=== PATIENT | male | born 1980 | race Caucasian/White ===

== ENCOUNTER → 2019-10-02 15:58 | Outpatient (BNVA) | payer MEDICAID, SELFPAY | PROVIDERS: Family Provider Nurse Practitioner Family; PCP Registered Nurse; Visit Provider Nurse Practitioner Psychiatric/Mental Health | DX: F31.32 Bipolar disorder, current episode depressed, moderate (principal); F43.12 Post-traumatic stress disorder, chronic; F41.1 Generalized anxiety disorder; F15.21 Other stimulant dependence, in remission | CPT/HCPCS: 99214 ==

== ENCOUNTER → 2019-10-31 15:28 | Outpatient (BNVA) | payer MEDICAID, SELFPAY | PROVIDERS: Family Provider Nurse Practitioner Family; PCP Registered Nurse; Visit Provider Nurse Practitioner Psychiatric/Mental Health | DX: F31.32 Bipolar disorder, current episode depressed, moderate (principal); F43.12 Post-traumatic stress disorder, chronic; F41.1 Generalized anxiety disorder; F15.21 Other stimulant dependence, in remission | CPT/HCPCS: 99214 ==

== ENCOUNTER → 2019-11-07 11:00 | Outpatient (BNVA) | payer MEDICAID, SELFPAY | PROVIDERS: Family Provider Nurse Practitioner Family; PCP Registered Nurse; Visit Provider Registered Nurse | DX: I10 Essential (primary) hypertension (principal); F15.10 Other stimulant abuse, uncomplicated | CPT/HCPCS: 36415; 80053; 80061; 85025 ==

== ENCOUNTER → 2020-04-01 07:29 | Outpatient (BNVA) | payer MEDICAID, SELFPAY | PROVIDERS: Family Provider Nurse Practitioner Family; Visit Provider Nurse Practitioner Psychiatric/Mental Health | DX: F41.1 Generalized anxiety disorder (principal); F43.12 Post-traumatic stress disorder, chronic; F15.21 Other stimulant dependence, in remission; F33.2 Major depressive disorder, recurrent severe without psychotic features | CPT/HCPCS: 99214 ==

== ENCOUNTER → 2020-05-03 10:05 | Outpatient (BNVA) | payer MEDICAID, SELFPAY | PROVIDERS: Family Provider Nurse Practitioner Family; Visit Provider Nurse Practitioner Psychiatric/Mental Health | DX: F33.1 Major depressive disorder, recurrent, moderate (principal); F15.21 Other stimulant dependence, in remission; F41.1 Generalized anxiety disorder; F43.12 Post-traumatic stress disorder, chronic | CPT/HCPCS: 99214 ==

== ENCOUNTER → 2020-05-07 08:10 | Outpatient (BNVA) | payer MEDICAID, SELFPAY | PROVIDERS: Family Provider Nurse Practitioner Family; Visit Provider Nurse Practitioner Psychiatric/Mental Health | DX: Z79.899 Other long term (current) drug therapy (principal); R10.9 Unspecified abdominal pain | CPT/HCPCS: 80053; 80061; 81000; 83036; 85025 ==

== ENCOUNTER → 2020-05-31 08:20 | Outpatient (BNVA) | payer MEDICAID, SELFPAY | PROVIDERS: Family Provider Nurse Practitioner Family; Visit Provider Nurse Practitioner Psychiatric/Mental Health | DX: F33.1 Major depressive disorder, recurrent, moderate (principal); F15.21 Other stimulant dependence, in remission; F41.1 Generalized anxiety disorder; F43.12 Post-traumatic stress disorder, chronic | CPT/HCPCS: 99214 ==

== ENCOUNTER → 2020-06-21 08:15 | Outpatient (BNVA) | payer MEDICAID, SELFPAY | PROVIDERS: Family Provider Nurse Practitioner Family; Visit Provider Nurse Practitioner Psychiatric/Mental Health | DX: F33.1 Major depressive disorder, recurrent, moderate (principal); F15.21 Other stimulant dependence, in remission; F41.1 Generalized anxiety disorder; F43.12 Post-traumatic stress disorder, chronic | CPT/HCPCS: 99214 ==

== ENCOUNTER → 2020-07-09 10:32 | Outpatient (BNVA) | payer MEDICAID, SELFPAY | PROVIDERS: Family Provider Nurse Practitioner Family; Visit Provider Registered Nurse | DX: E78.5 Hyperlipidemia, unspecified (principal); I10 Essential (primary) hypertension | CPT/HCPCS: 80061 ==

== ENCOUNTER → 2020-08-12 08:50 | Outpatient (BNVA) | payer MEDICAID, SELFPAY | PROVIDERS: Family Provider Nurse Practitioner Family; Visit Provider Nurse Practitioner Psychiatric/Mental Health | DX: F33.1 Major depressive disorder, recurrent, moderate (principal); F15.21 Other stimulant dependence, in remission; F41.1 Generalized anxiety disorder; F43.12 Post-traumatic stress disorder, chronic | CPT/HCPCS: 99214 ==

== ENCOUNTER → 2020-09-20 08:56 | Outpatient (BNVA) | payer MEDICAID, SELFPAY | PROVIDERS: Family Provider Nurse Practitioner Family; Visit Provider Nurse Practitioner Psychiatric/Mental Health | DX: F33.1 Major depressive disorder, recurrent, moderate (principal); F15.21 Other stimulant dependence, in remission; F41.1 Generalized anxiety disorder; F43.12 Post-traumatic stress disorder, chronic | CPT/HCPCS: 99214 ==

== ENCOUNTER → 2020-10-01 09:36 | Outpatient (BNVA) | payer MEDICAID, SELFPAY | PROVIDERS: Family Provider Nurse Practitioner Family; Visit Provider Counselor Mental Health | DX: F33.1 Major depressive disorder, recurrent, moderate (principal); F41.1 Generalized anxiety disorder; F43.12 Post-traumatic stress disorder, chronic | CPT/HCPCS: 90832 ==

== ENCOUNTER → 2020-10-09 08:44 | Outpatient (BNVA) | payer MEDICAID, SELFPAY | PROVIDERS: Family Provider Nurse Practitioner Family; Visit Provider Counselor Mental Health | DX: F33.1 Major depressive disorder, recurrent, moderate (principal); F41.1 Generalized anxiety disorder; F43.12 Post-traumatic stress disorder, chronic | CPT/HCPCS: 90832 ==

== ENCOUNTER → 2020-10-18 09:28 | Outpatient (BNVA) | payer MEDICAID, SELFPAY | PROVIDERS: Family Provider Nurse Practitioner Family; Visit Provider Nurse Practitioner Psychiatric/Mental Health | DX: F33.1 Major depressive disorder, recurrent, moderate (principal); F15.21 Other stimulant dependence, in remission; F41.1 Generalized anxiety disorder; F43.12 Post-traumatic stress disorder, chronic | CPT/HCPCS: 99214 ==

== ENCOUNTER → 2020-11-01 09:04 | Outpatient (BNVA) | payer MEDICAID, SELFPAY | PROVIDERS: Family Provider Nurse Practitioner Family; Visit Provider Counselor Mental Health | DX: F33.1 Major depressive disorder, recurrent, moderate (principal); F41.1 Generalized anxiety disorder; F43.12 Post-traumatic stress disorder, chronic; F15.21 Other stimulant dependence, in remission | CPT/HCPCS: 90834 ==

== ENCOUNTER → 2020-11-06 08:45 | Outpatient (BNVA) | payer MEDICAID, SELFPAY | PROVIDERS: Family Provider Nurse Practitioner Family; Visit Provider Counselor Mental Health | DX: F33.1 Major depressive disorder, recurrent, moderate (principal); F41.1 Generalized anxiety disorder; F43.12 Post-traumatic stress disorder, chronic; F15.21 Other stimulant dependence, in remission | CPT/HCPCS: 90834 ==

== ENCOUNTER → 2020-11-13 08:20 | Outpatient (BNVA) | payer SELFPAY | PROVIDERS: Family Provider Nurse Practitioner Family; Visit Provider Counselor Mental Health | DX: F33.1 Major depressive disorder, recurrent, moderate (principal); F41.1 Generalized anxiety disorder; F43.12 Post-traumatic stress disorder, chronic; F15.21 Other stimulant dependence, in remission | CPT/HCPCS: 90834 ==

== ENCOUNTER → 2020-12-03 14:32 | Outpatient (BNVA) | payer OTHER, SELFPAY | PROVIDERS: Family Provider Nurse Practitioner Family; Visit Provider Nurse Practitioner Psychiatric/Mental Health | DX: F43.12 Post-traumatic stress disorder, chronic (principal); Z79.899 Other long term (current) drug therapy | CPT/HCPCS: 80061; 83036 ==

== ENCOUNTER → 2021-01-02 08:38 | Outpatient (BNVA) | payer MEDICAID, SELFPAY ==
[2020-12-06 13:38] VITALS: BMI 36.2
== END ==
PROVIDERS: PCP Registered Nurse; Visit Provider Nurse Practitioner Psychiatric/Mental Health
DX: F33.1 Major depressive disorder, recurrent, moderate (principal); F41.1 Generalized anxiety disorder; F43.12 Post-traumatic stress disorder, chronic; F15.21 Other stimulant dependence, in remission
CPT/HCPCS: 99214

== ENCOUNTER → 2021-01-23 08:10 | Outpatient (BNVA) | payer MEDICAID, SELFPAY ==
[2020-12-06 13:38] VITALS: BMI 36.2
== END ==
PROVIDERS: PCP Registered Nurse; Visit Provider Nurse Practitioner Psychiatric/Mental Health
DX: F33.1 Major depressive disorder, recurrent, moderate (principal); F15.21 Other stimulant dependence, in remission; F41.1 Generalized anxiety disorder; F43.12 Post-traumatic stress disorder, chronic
CPT/HCPCS: 99214

== ENCOUNTER → 2021-02-07 07:49 | Outpatient (BNVA) | payer MEDICAID, OTHER, SELFPAY ==
[2020-12-06 13:38] VITALS: BMI 36.2
== END ==
PROVIDERS: PCP Registered Nurse; Visit Provider Nurse Practitioner Psychiatric/Mental Health
DX: F33.1 Major depressive disorder, recurrent, moderate (principal); F41.1 Generalized anxiety disorder; F43.12 Post-traumatic stress disorder, chronic; F15.20 Other stimulant dependence, uncomplicated
CPT/HCPCS: 99214

== ENCOUNTER → 2021-02-20 12:58 | Outpatient (BNVA) | payer MEDICAID, SELFPAY ==
[2021-02-07 09:35] VITALS: BMI 36.2
== END ==
PROVIDERS: PCP Registered Nurse; Visit Provider Nurse Practitioner Psychiatric/Mental Health
DX: F33.1 Major depressive disorder, recurrent, moderate (principal); F41.1 Generalized anxiety disorder; F43.12 Post-traumatic stress disorder, chronic; F15.20 Other stimulant dependence, uncomplicated
CPT/HCPCS: 99214

== ENCOUNTER → 2021-03-06 07:30 | Outpatient (BNVA) | payer MEDICAID, SELFPAY ==
[2021-02-07 09:35] VITALS: BMI 36.2
== END ==
PROVIDERS: PCP Registered Nurse; Visit Provider Nurse Practitioner Psychiatric/Mental Health
DX: F33.1 Major depressive disorder, recurrent, moderate (principal); F41.1 Generalized anxiety disorder; F43.12 Post-traumatic stress disorder, chronic; F15.20 Other stimulant dependence, uncomplicated
CPT/HCPCS: 99214

== ENCOUNTER → 2021-03-20 07:35 | Outpatient (BNVA) | payer MEDICAID, OTHER, SELFPAY ==
[2021-02-07 09:35] VITALS: BMI 36.2
== END ==
PROVIDERS: PCP Registered Nurse; Visit Provider Nurse Practitioner Psychiatric/Mental Health
DX: F33.1 Major depressive disorder, recurrent, moderate (principal); F41.1 Generalized anxiety disorder; F43.12 Post-traumatic stress disorder, chronic; F15.20 Other stimulant dependence, uncomplicated
CPT/HCPCS: 99214

== ENCOUNTER → 2021-04-03 07:29 | Outpatient (BNVA) | payer MEDICAID, SELFPAY ==
[2021-02-07 09:35] VITALS: BMI 36.2
== END ==
PROVIDERS: PCP Registered Nurse; Visit Provider Nurse Practitioner Psychiatric/Mental Health
DX: F33.1 Major depressive disorder, recurrent, moderate (principal); F41.1 Generalized anxiety disorder; F43.12 Post-traumatic stress disorder, chronic; F15.20 Other stimulant dependence, uncomplicated
CPT/HCPCS: 99214

== ENCOUNTER → 2021-04-24 08:07 | Outpatient (BNVA) | payer MEDICAID, SELFPAY ==
[2021-02-07 09:35] VITALS: BMI 36.2
== END ==
PROVIDERS: PCP Registered Nurse; Visit Provider Nurse Practitioner Psychiatric/Mental Health
DX: F33.1 Major depressive disorder, recurrent, moderate (principal); F41.1 Generalized anxiety disorder; F43.12 Post-traumatic stress disorder, chronic; F15.20 Other stimulant dependence, uncomplicated
CPT/HCPCS: 99214

== ENCOUNTER → 2021-05-22 08:21 | Outpatient (BNVA) | payer MEDICAID, OTHER, SELFPAY ==
[2021-02-07 09:35] VITALS: BMI 36.2
== END ==
PROVIDERS: PCP Registered Nurse; Visit Provider Nurse Practitioner Psychiatric/Mental Health
DX: F33.1 Major depressive disorder, recurrent, moderate (principal); F41.1 Generalized anxiety disorder; F43.12 Post-traumatic stress disorder, chronic; F15.20 Other stimulant dependence, uncomplicated
CPT/HCPCS: 99214

== ENCOUNTER → 2021-06-09 13:49 | Outpatient (BNVA) | payer OTHER, SELFPAY ==
[2021-02-07 09:35] VITALS: BMI 36.2
== END ==
PROVIDERS: PCP Registered Nurse; Visit Provider Nurse Practitioner Psychiatric/Mental Health
DX: Z03.89 Encounter for observation for other suspected diseases and conditions ruled out (principal)
CPT/HCPCS: 80053; 80307; 82306; 85025

== ENCOUNTER → 2021-06-26 09:10 | Outpatient (BNVA) | payer MEDICAID, SELFPAY ==
[2021-02-07 09:35] VITALS: BMI 36.2
== END ==
PROVIDERS: PCP Registered Nurse; Visit Provider Nurse Practitioner Psychiatric/Mental Health
DX: F33.1 Major depressive disorder, recurrent, moderate (principal); F41.1 Generalized anxiety disorder; F43.12 Post-traumatic stress disorder, chronic; F15.20 Other stimulant dependence, uncomplicated
CPT/HCPCS: 99214

== ENCOUNTER → 2021-07-16 07:38 | Outpatient (BNVA) | payer MEDICAID, SELFPAY ==
[2021-02-07 09:35] VITALS: BMI 36.2
== END ==
PROVIDERS: PCP Registered Nurse; Visit Provider Nurse Practitioner Psychiatric/Mental Health
DX: F33.1 Major depressive disorder, recurrent, moderate (principal); F41.1 Generalized anxiety disorder; F43.12 Post-traumatic stress disorder, chronic; F15.20 Other stimulant dependence, uncomplicated
CPT/HCPCS: 99214

== ENCOUNTER → 2021-08-07 08:38 | Outpatient (BNVA) | payer MEDICAID, SELFPAY ==
[2021-02-07 09:35] VITALS: BMI 36.2
== END ==
PROVIDERS: PCP Registered Nurse; Visit Provider Nurse Practitioner Psychiatric/Mental Health
DX: F33.1 Major depressive disorder, recurrent, moderate (principal); F41.1 Generalized anxiety disorder; F43.12 Post-traumatic stress disorder, chronic; F15.20 Other stimulant dependence, uncomplicated; R11.0 Nausea
CPT/HCPCS: 99214

== ENCOUNTER → 2021-08-13 08:12 | Outpatient (BNVA) | payer MEDICAID, SELFPAY ==
[2021-02-07 09:35] VITALS: BMI 36.2
== END ==
PROVIDERS: PCP Registered Nurse; Visit Provider Nurse Practitioner Psychiatric/Mental Health
DX: F33.1 Major depressive disorder, recurrent, moderate (principal); F41.1 Generalized anxiety disorder; F43.12 Post-traumatic stress disorder, chronic; F15.20 Other stimulant dependence, uncomplicated
CPT/HCPCS: 99214

== ENCOUNTER → 2021-08-25 16:06 | Outpatient (BNVA) | payer MEDICAID, OTHER, SELFPAY ==
[2021-02-07 09:35] VITALS: BMI 36.2
== END ==
PROVIDERS: PCP Registered Nurse; Visit Provider Nurse Practitioner Psychiatric/Mental Health
DX: F33.1 Major depressive disorder, recurrent, moderate (principal); F41.1 Generalized anxiety disorder; F43.12 Post-traumatic stress disorder, chronic; F15.20 Other stimulant dependence, uncomplicated
CPT/HCPCS: 99214

== ENCOUNTER → 2021-09-10 08:04 | Outpatient (BNVA) | payer MEDICAID, OTHER, SELFPAY ==
[2021-02-07 09:35] VITALS: BMI 36.2
== END ==
PROVIDERS: PCP Registered Nurse; Visit Provider Nurse Practitioner Psychiatric/Mental Health
DX: F33.1 Major depressive disorder, recurrent, moderate (principal); F41.1 Generalized anxiety disorder; F43.12 Post-traumatic stress disorder, chronic; F15.20 Other stimulant dependence, uncomplicated
CPT/HCPCS: 99214

== ENCOUNTER → 2021-12-01 09:22 | Outpatient (BNVA) | payer OTHER, SELFPAY ==
[2021-11-06 16:15] VITALS: BMI 36.2
== END ==
PROVIDERS: PCP Registered Nurse; Visit Provider Nurse Practitioner Psychiatric/Mental Health
DX: F33.1 Major depressive disorder, recurrent, moderate (principal)
CPT/HCPCS: 80061; 83036

== ENCOUNTER 2022-01-02 13:39 | Outpatient (CLI) | payer MEDICAID, SELFPAY ==
[2021-12-10 08:32] VITALS: BMI 39.2
--- NOTE | 2022-01-02 13:30 | USCV_ITS ---
Jones Tenzin Age: 41 Gender: M : 1980 Exam Date: 01/02/2022 13:56 Ordering Phys: Edilson Tompkins PRESTIDIGITATOR PRESTIDIGITATOR Technologist: ASHLEY [place] [facility] [place]: TACYCARDIA BP: 150 / 90 HR: 111 Rhythm: Sinus tachycardia Technical Quality: Technically difficult study MEASUREMENTS (Male / Female) Normal Values 2D ECHO LV Diastolic Diameter PLAX 6.5 cm 4.2 - 5.9 / 3.9 - 5.3 cm LV Systolic Diameter PLAX 5.4 cm IVS Diastolic Thickness 1.6 cm 0.6 - 1.0 / 0.6 - 0.9 cm IVS Systolic Thickness 1.6 cm LVPW Diastolic Thickness 1.1 cm 0.6 - 1.0 / 0.6 - 0.9 cm LVPW Systolic Thickness 1.3 cm LVOT Diameter 2.0 cm LV Ejection Fraction 2D Teich 32.8 % LV Ejection Fraction MOD 2C 22.5 % LV Ejection Fraction 2C AL 25.2 % LA Diameter 4.1 cm LA Width 3.2 cm LA Height 5.1 cm RA Width 3.9 cm RA Height 4.5 cm Aorta at Sinotubular Diameter 2.6 cm M-MODE Aortic Annulus Diameter 3.1 cm LA Ao Ratio MM 1.3 MV E Point Septal Separation 1.3 cm DOPPLER AV Peak Velocity 133.0 cm/s LVOT Peak Velocity 83.0 cm/s AV Area Cont Eq vti 2.2 cm squared AV Area Cont Eq pk 2.0 cm squared MV Peak Velocity 121.0 cm/s MV Area PHT 5.0 cm squared MV E' Velocity 56.0 cm/s Mitral E to MV E' Ratio 9.3 Mitral E to LV E' Lateral Ratio 7.8 Mitral E to LV E' Septal Ratio 11.4 TR Peak Velocity 269.5 cm/s TR Peak Gradient 29.1 mmHg TR Mean Velocity 209.9 cm/s TR Mean Gradient 18.7 mmHg TR Velocity Time Integral 75.2 cm TV Peak E Velocity 77.0 cm/s Right Atrial Pressure 15.0 mmHg Pulmonary Artery Systolic Pressu 44.1 mmHg PV Peak Velocity 105.0 cm/s RV Acceleration Time 0.1 s RV Ejection Time 0.3 s RV AcT/ET 0.4 FINDINGS Left Ventricle Severely increased left ventricular cavity size. Decreased left ventricular wall thickness. Severely decreased left ventricular systolic function. No regional wall motion abnormalities. Grade III/IV diastolic dysfunction (restrictive filling pattern), severely elevated filling pressures. Left ventricular ejection fraction is estimated at 15%. Right Ventricle Normal right ventricular size and systolic function. Mild pulmonary hypertension, RVSP 44.1 mmHg. Right Atrium The right atrium is normal in size. Left Atrium The left atrium is normal in size. Mitral Valve Structurally normal mitral valve. Mild mitral valve regurgitation. Aortic Valve Structurally normal aortic valve without significant sclerosis or stenosis. There is no aortic regurgitation. Tricuspid Valve Structurally normal tricuspid valve. Mild tricuspid valve regurgitation. Pulmonic Valve Pulmonic valve not well visualized. Pericardium Trivial pericardial effusion. Echocardiographic findings suggest a non hemodynamically significant pericardial effusion. Aorta Normal ascending aorta dimension. CONCLUSIONS Severely increased left ventricular cavity size. Decreased left ventricular wall thickness. Severely decreased left ventricular systolic function. No regional wall motion abnormalities. Grade III/IV diastolic dysfunction (restrictive filling pattern), severely elevated filling pressures. Left ventricular ejection fraction is estimated at 15%. Normal right ventricular size and systolic function. Mild pulmonary hypertension, RVSP 44.1 mmHg. Structurally normal mitral valve. Mild mitral valve regurgitation. Trivial pericardial effusion. Echocardiographic findings suggest a non hemodynamically significant pericardial effusion. There are no prior echocardiogram studies to compare. I called the family nurse practitioner who oversees his care. Dr. Quinten Chau MD (Electronically Signed) Final Date: 02 January 2022 14:38 S
== END 2022-01-02 13:40 | disposition home or self-care (01) ==
PROVIDERS: PCP Registered Nurse; Visit Provider Registered Nurse
DX: I27.20 Pulmonary hypertension, unspecified (principal); I34.0 Nonrheumatic mitral (valve) insufficiency; I31.3 Pericardial effusion (noninflammatory); I51.7 Cardiomegaly; R00.0 Tachycardia, unspecified
CPT/HCPCS: 93306

== ENCOUNTER 2022-01-08 13:38 | Inpatient (IN) | payer MEDICAID, SELFPAY ==
[2021-12-10 08:32] VITALS: BMI 39.2
[2022-01-08] VITALS (9 sets, daily range): BP systolic 135–164; BP diastolic 92–102; PULSE 81–96; RESP 15–24; TEMP 36.4–36.6; O2SAT 95–100; BMI 43.6
--- NOTE | 2022-01-08 14:05 | ED_ITS ---
HPI - SOB/Dyspnea General: Chief Complaint: Syncope Stated Complaint: SYNCOPAL EPISODE Time Seen by Provider: 01/08/22 13:46 Source: patient Mode of arrival: ambulatory Limitations: no limitations History of Present Illness: HPI Narrative: This patient presents to our emergency department because of progressive weight gain, shortness of breath, weakness and near syncopal episodes. He states over the past several weeks he has noted increasing amount of lower extremity swelli ng and abdominal swelling. He states he was seen at another emergency department in the region and given a prescription for furosemide but he still has all the fluid retention issues. He denies any episodes of chest pain. He is short of breath and with normal activity as well as with lying flat in bed. He has never had any cardiovascular issues that he is aware. He does note that he had a echocardiogram done in the last 2 to 3 weeks that he was told his left side of his heart was markedly diminished in function. He previously used IV methamphetamine but has not done so for several years. He denies any fevers etc. Denies any recent illness. He states he has been making urine and does still continue to take the furosemide as previously prescribed. He has never had a cardiac work-up. MD elicited complaint: shortness of breath Timing: progressively worsening Exacerbating factors: lying flat and exertion Relieving factors: nothing Associated symptoms: Reports orthopnea and syncope; Deny abdominal pain, chest pain, fever(s), nausea, palpitations or vomiting Treatment prior to arrival: none Review of Systems Const: Denies: fever(s), chills or body aches Eyes: Denies: change in vision or blurry vision ENMT: Denies: throat pain or odynophagia Card: Reports: edema, swelling of feet/ankles, syncope, dyspnea on exertion and orthopnea; Denies: chest pain, palpitations or irregular heart rhythm Resp: Denies: productive cough, non-productive cough, wheezing or stridor GI: Denies: abdominal pain, nausea or vomiting : Reports: urinary frequency; Denies: flank pain, difficulty urinating, dysuria or urinary urgency Musc: Reports: extremity swelling; Denies: neck pain, back pain or joint swelling Skin/Breast: Reports: rash Neuro: Denies: headache(s), numbness in extremities or weakness in extremities PFS ED PFSH: Medical History Chronic constipation Chronic post-traumatic stress disorder Flank pain Flank pain Generalized anxiety disorder History of sarcoidosis Hyperlipidemia due to dietary fat intake Hypertension Major depressive disorder, recurrent episode, moderate with anxious distress Mild acid reflux Other stimulant dependence, uncomplicated methamphetamine type, severe Psychiatric care Sarcoidosis Reported, have been unable to obtain hx documentation Surgical History History of hand surgery right index finger repaired due to trauma History of surgical procedure on eye proper using laser 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 Family History Father Diabetes Cancer brain Multiple sclerosis Mother Diabetes CHF (congestive heart failure) Grandmother CAD (coronary artery disease) Cancer breast twice Grandfather Cancer bone Other Other stimulant dependence, uncomplicated Social History Smoking and tobacco status: former smoker (03/13/2012) Quit status (tobacco): has quit using tobacco Year quit tobacco: 2011 Second hand smoke exposure: Yes (occasionally) Smoking risk assessment/counseling performed?: No Alcohol intake: current Desire information about alcohol rehabilitation?: No Counseling given: No Desire information about substance/drug rehabilitation?: No (started [facility] ) Adopted: No Caregiver/support person: No Lives independently: Yes Household members: none Housing: Apartment Marital status: Single Number of children: 0 Highest education level completed: 8th Grade service: No Current occupational status: disabled Pets and animals: Yes Pets & animals: dog(s) History of recent travel: No Leisure activites: other Leisure activities details: watch TV, play with dog Sexually active: No Current gender identity: Male Mary Jo/Synagogue: None Special mary jo needs: No Agree to transfusion: Yes Financial difficulty paying for basics: Hard Physical Exam Narrative: EXAM NARRATIVE: This individual is alert makes good eye contact and answers questions a goal- directed fashion. He speaks in complete sentences without dyspnea. Const: COMMON NORMALS: no acute distress and patient oriented x3 NUTRITIONAL APPEARANCE: overweight HENMT: COMMON NORMALS: normocephalic, Normal nasal mucous membranes and turbinates present and moist oral mucous membranes HEAD & SCALP: normocephalic NOSE: Normal nasal mucous membranes and turbinates present Eye: COMMON NORMALS: Equal, round and reactive pupils present, EOMs intact bilaterally, conjunctivae normal and no scleral icterus CONJUNCTIVA: Yes conjunctivae normal PUPIL: Yes Equal, round and reactive pupils present Neck/C-Spine: COMMON NORMALS: full ROM, no lymphadenopathy, no JVD and Thyroid normal THYROID: Thyroid normal Lymph: LYMPHATIC: no lymphadenopathy noted Chest: COMMONS NORMALS: normal inspection of the chest and normal palpation of entire chest wall Resp: COMMON NORMALS: normal respiratory effort and No use of accessory muscles EFFORT & INSPECTION: Yes able to speak in complete sentences AUSCULTATION: diminished lung sounds bilateral Cardio: COMMON NORMALS: no JVD, regular rate, regular rhythm, No murmurs present (Cardio) and Peripheral pulses 2+ throughout RATE: regular rate RHYTHM: regular rhythm PERIPHERAL PULSES: Peripheral pulses 2+ throughout GI: COMMON NORMALS: Soft to palpation INSPECTION: Yes abdominal distension and No Fluid wave present PALPATION: Yes Soft to palpation PERCUSSION: no fluid wave : COMMON NORMALS: Yes no CVA tenderness BLADDER/KIDNEY EXAM: Yes no CVA tenderness Back/Pelvis: COMMON NORMALS: no CVA tenderness, no thoracic nor lumbar tenderness and thoraco-lumbar ROM normal Extremity: COMMON NORMALS: full ROM, capillary refill normal and no calf tenderness NARRATIVE EXTREMITY EXAM: He has bilateral lower extremity pitting edema. He also has areas of isolated vesicle vesicular skin breakdown with clear drainage. Neuro: COMMON NORMALS: patient oriented x3, moves all extremities, no focal m otor deficits and no sensory deficits noted CRANIAL NERVES: Yes CN normal except as noted Course Consultations: Consultation #1: I discussed with cardiology on-call regarding the need for additional admission and diuresis and he agreed that that is would be indicated and this can particular case. Time: 16:55 Consultation #2: Kartik agreed to obs Time: 16:57 Vital Signs: Vital signs: Vital Signs Temperature 97.9 F 01/08/22 14:56 Pulse Rate 81 01/08/22 16:17 Respiratory Rate 15 01/08/22 16:17 Blood Pressure 142/93 01/08/22 16:17 Pulse Oximetry 95 01/08/22 16:17 MDM - SOB/Dyspnea Medical Decision Making Gentleman with a history of markedly reduced EF who comes in with increasing dyspnea with exertion, orthopnea without chest pain or EKG changes. His clinic al exam certainly suggest biventricular failure and the patient would certainly benefit from additional diuresis, medication adjustment and additional intervention as indicated. Patient certainly does not suggest ACS acute thromboembolic disease or other findings at this time. Hospitalist agreed to place him in observation status. Medical Records I reviewed the patient's medical records. Lab Data I reviewed the patient's lab results. : 01/08/22 15:01 01/08/22 15:01 Labs/Radiology: Radiology Impressions Chest X-Ray 01/08/22 14:09 IMPRESSION: 1. Enlarged cardiac silhouette size with probable mild vascular congestion. 2. No obvious acute consolidation. Suboptimal lung base assessment. Followup including lateral view may be obtained if clinically indicated. Laboratory Results WBC 11.0 10^3/uL (4.0-10.0) H 01/08/22 15: RBC 5.51 10^6/uL (4.1-5.3) H 01/08/22 15:01 Hgb 12.8 g/dL (11.7-16.6) 01/08/22 15: Hct 45.2 % (42.0-52.0) 01/08/22 15: MCV 82.0 fl (80-94) 01/08/22 15:01 MCH 23.2 pg (28.0-34.0) L 01/08/22 15: MCHC 28.3 g/dL (30.0-36.0) L 01/08/22 15:01 RDW 15.5 % (12.1-15.1) H 01/08/22 15:01 Plt Count 325 10^3/cmm (130-400) 01/08/22 15:01 MPV 10.5 fL (7.4-10.4) H 01/08/22 15:01 Neut % (Auto) 70.9 % 01/08/22 15:01 Lymph % (Auto) 16.0 % 01/08/22 15:01 Upson % (Auto) 9.4 % 01/08/22 15:01 Eos % (Auto) 2.5 % 01/08/22 15:01 Baso % (Auto) 0.8 % 01/08/22 15:01 Neut # (Auto) 7.82 10^3/uL (1.8-7.7) H 01/08/22 15:01 Lymph # (Auto) 1.8 10^3/uL (0.8-4.8) 01/08/22 15:01 Upson # (Auto) 1.0 10^3/uL (0.2-0.9) H 01/08/22 15:01 Eos # (Auto) 0.3 10^3/uL (0.0-0.8) 01/08/22 15:01 Baso # (Auto) 0.1 10^3/uL (0.0-0.1) 01/08/22 15:01 Nucleated RBC % (auto) 0 % 01/08/22 15:01 Nucleated RBCs # 0.0 /100WBC 01/08/22 15:01 Sodium 141 mmol/L (136-145) 01/08/22 15:01 Potassium 4.1 mmol/L (3.5-5.1) 01/08/22 15:01 Chloride 103 mmol/L (98-107) 01/08/22 15:01 Carbon Dioxide 30 mmol/L (22-29) H 01/08/22 15:01 Anion Gap 12.1 (5-19) 01/08/22 15:01 BUN 13 mg/dL (6-20) 01/08/22 15:01 Creatinine 1.1 mg/dL (0.7-1.2) 01/08/22 15:01 GFR Calculation 74.5 mL/min (90-130) L 01/08/22 15:01 Glucose 110 mg/dL (65-115) 01/08/22 15:01 Calculated Osmolality 293 mOsm/kg (285-295) 01/08/22 15:01 Calcium 9.4 mg/dL (8.5-10.5) 01/08/22 15:01 Total Bilirubin 0.4 mg/dL (0.15-1.2) 01/08/22 15:01 AST 15 U/L (0-40) 01/08/22 15:01 ALT 16 U/L (0-41) 01/08/22 15:01 Alkaline Phosphatase 80 IU/L (40-130) 01/08/22 15:01 Troponin T Gen 5 ng/L 32 ng/L (0-15) H 01/08/22 15:01 NT-Pro-B Natriuret Pep 3212 pg/mL (0-125) H 01/08/22 15:01 Total Protein 6.7 g/dL (6.6-8.7) 01/08/22 15:01 Albumin 4.0 g/dL (3.5-5.2) 01/08/22 15:01 Globulin 2.7 g/dL (1.3-4.6) 01/08/22 15:01 TSH 3.16 uIU/mL (0.27-4.20) 01/08/22 15:01 EKG Data EKG 1: I personally reviewed and interpreted this EKG as follows: EKG interpretation time: 15:20 Interpretation: EKG reveals a ventricular rate of 81 bpm. Normal intervals normal axis normal QTC intervals. Does have poor R wave progression across the precordium suggestive of possible prior anterior wall NC. Discharge Plan Discharge Patient Disposition: Placed in Observation Clinical Impression: Acute on chronic congestive heart failure Coding Level of Care Code ED Director [employer] for Vangie Fwd Exam Comprehensive
--- NOTE | 2022-01-08 14:09 | ECG_ITS ---
[facility] Test Date: 2022-01-08 Pat Name: Tenzin Jones Department: Room: Gender: Male Refractory Specialist: : 1980 Requested By: Levon Godfrey Order Number: [id number] Ramon MD: Quinten Chau M.D. Measurements Intervals Luke Rate: 81 P: 56 OR: 157 QRS: 5 QRSD: 90 T: 126 QT: 372 QTc: 434 Interpretive Statements SINUS RHYTHM POSSIBLE LEFT ATRIAL ENLARGEMENT [-0.1mV P-WAVE IN V1/V2] POSSIBLE ANTERIOR MYOCARDIAL INFARCTION , PROBABLY OLD [30 ms Q WAVE IN V3/V4, OR R < 0.2 mV IN V4] PROBABLE INFERIOR MYOCARDIAL INFARCTION , PROBABLY OLD [35 ms Q WAVE IN II/aVF] No previous ECG available for comparison Electronically Signed On 01-08-2022 16:16:44 CDT by Quinten Chau M.D. [email or web address]
--- NOTE | 2022-01-08 14:09 | XRR_ITS ---
PROCEDURE INFORMATION: Exam: XR Chest Exam date and time: 01/08/2022 2:15 PM Age: 41 years old Clinical indication: Shortness of breath; Additional info: SOB TECHNIQUE: Imaging protocol: XR of the chest. Views: 1 view. COMPARISON: No relevant prior studies available. FINDINGS: Lungs: The lung bases are suboptimally assessed due to technique however the upper lungs are clear of focal consolidation. Pleural spaces: Unremarkable. No pleural effusion. No pneumothorax. Heart/Mediastinum: Cardiac silhouette appears enlarged. Mild cephalization of vascularity suggesting mild vascular congestion. Bones/joints: No acute osseous findings. Other findings: Single view was submitted. XR/XR chest 1V portable [id number] IMPRESSION: 1. Enlarged cardiac silhouette size with probable mild vascular congestion. 2. No obvious acute consolidation. Suboptimal lung base assessment. Followup including lateral view may be obtained if clinically indicated.
[2022-01-08 15:15] LABS: Basophils # 0.1 10^3/uL (0.0-0.1); Basophils % 0.8 %; Eosinophils # 0.3 10^3/uL (0.0-0.8); Eosinophils % 2.5 %; Hematocrit 45.2 % (42.0-52.0); Hemoglobin 12.8 g/dL (11.7-16.6); Lymphocytes # 1.8 10^3/uL (0.8-4.8); Mean Corpuscular HGB Conc 28.3 g/dL (30.0-36.0); Mean Corpuscular Hemoglobin 23.2 pg (28.0-34.0); Mean Platelet Volume 10.5 fL (7.4-10.4); Monocytes % 9.4 %; Neutrophils # 7.82 10^3/uL (1.8-7.7); Neutrophils % 70.9 %; Nucleated Red Blood Cells % 0 %; Platelet Count 325 10^3/cmm (130-400); Red Blood Count 5.51 10^6/uL (4.1-5.3); Red Cell Distribution Width 15.5 % (12.1-15.1)
[2022-01-08 15:36] LABS: Troponin T (5th) Once 32 ng/L (0-15)
[2022-01-08 15:43] LABS: Alanine Aminotransferase 16 U/L (0-41); Alkaline Phosphatase 80 IU/L (40-130); Anion Gap 12.1 (5-19); Aspartate Amino Transferase 15 U/L (0-40); Blood Urea Nitrogen 13 mg/dL (6-20); Calcium 9.4 mg/dL (8.5-10.5); Carbon Dioxide 30 mmol/L (22-29); Chloride 103 mmol/L (98-107); Globulin 2.7 g/dL (1.3-4.6); Glomerular Filtration Rate 74.5 mL/min (90-130); Glucose 110 mg/dL (65-115); NT Pro B Type Natriuretic Pept 3212 pg/mL (0-125); Osmolality Calculated 293 mOsm/kg (285-295); Potassium 4.1 mmol/L (3.5-5.1); Sodium 141 mmol/L (136-145); Thyroid Stimulating Hormone 3.16 uIU/mL (0.27-4.20); Total Bilirubin 0.4 mg/dL (0.15-1.2); Total Protein 6.7 g/dL (6.6-8.7)
[2022-01-08] MEDS: FUROsemide 10 mg/mL SDV 4mL 40 MG IVP ×2 (16:35→20:57)
--- NOTE | 2022-01-08 17:38 | P.HP_ITS ---
Providers/Chief Complaint Primary Care Provider: ANGEL Rouse Chief Complaint: SYNCOPAL EPISODE History of Present Illness Tenzin Jones is a 41 year old male with a past medical history of hypertension, methamphetamine abuse, history of bilateral extremity edema, newly diagnosed congestive heart failure who presents to [facility] due to increasing shortness of breath and bilateral extreme edema. Patient tells me that he has not seen a physician in some period of time, has not seen a mutual fund accountant, is in and out of the emergency room at [facility]. For CHF exacerbation, he tells me typically gets diuresed. He was recently told by his primary care that his EF was down to 15%. He has been experiencing increasingly shortness of breath, shortness of breath less than 10 feet, orthopnea, paroxysmal nocturnal dyspnea, bilateral lower extremity edema. Review of Systems Const: Denies: fever(s), chills, fatigue or malaise Eyes: Denies: change in vision or blurry vision ENMT: Denies: nasal congestion Card: Reports: edema and lightheadedness Resp: Reports: dyspnea; Denies: productive cough or non-productive cough GI: Denies: abdominal pain, nausea, vomiting or hematemesis : Denies: flank pain, difficulty urinating, dysuria or urinary frequency Musc: Denies: neck pain or back pain Skin/Breast: Denies: rash Neuro: Denies: headache(s) or vertigo Endo: Denies: polyuria or polydipsia Medications/Allergies Home Medications Medication Instructions Recorded Confirmed Last Taken Type ibuprofen 200 mg tablet 200 mg PO Q6H PRN 12/03/20 12/16/21 Unknown History pantoprazole 40 mg tablet,delayed 40 mg PO DAILY #90 tab 03/06/21 12/16/21 Unkn own Rx release ondansetron HCl 4 mg tablet 4 mg PO Q8H PRN #90 tab 08/07/21 12/16/21 Unknown Rx (Zofran) cholecalciferol (vitamin D3) 25 25 mcg PO DAILY #30 cap 09/10/21 12/16/21 Unkno wn Rx mcg (1,000 unit) capsule bupropion HCl 300 mg 24 hr tablet, 300 mg PO QAM #30 tab 10/01/21 12/16/21 Unknown Rx extended release (Wellbutrin XL) albuterol sulfate 90 mcg/actuation See Rx Instructions .ROUTE 11/10/21 12/16/21 Unknown Rx aerosol inhaler (ProAir HFA) .COMPLEX #8.5 gm lisinopril 10 mg tablet 10 mg PO QDAY #90 tab 11/10/21 12/16/21 Unknown Rx rosuvastatin 5 mg tablet 5 mg PO DAILY #90 tab 11/10/21 12/16/21 Unknown Rx multivitamin (One Daily 1 tab PO DAILY 12/01/21 12/16/21 Unknown History Multivitamin) furosemide 40 mg tablet (Lasix) 40 mg PO DAILY 01/06/22 01/06/22 Unknown History metoprolol tartrate 50 mg tablet 50 mg PO BID 30 Days #60 tab 01/06/22 01/06/22 Unknown Rx (Lopressor) spironolactone 50 mg tablet 50 mg PO BID 30 Days #60 tab 01/06/22 01/06/22 Unknown Rx (Aldactone) naltrexone 50 mg tablet 50 mg PO DAILY 01/08/22 01/08/22 01/08/22 History Allergies Allergy/AdvReac Type Severity Reaction Status Date / Time sertraline [From Zoloft] AdvReac Severe Panic Verified 01/06/22 15:56 attack citalopram [From Celexa] AdvReac Intermediate Rash Verified 01/06/22 15:56 PFSH Acute PFSH: Medical History Chronic constipation Chronic post-traumatic stress disorder Flank pain Flank pain Generalized anxiety disorder History of sarcoidosis Hyperlipidemia due to dietary fat intake Hypertension Major depressive disorder, recurrent episode, moderate with anxious distress Mild acid reflux Other stimulant dependence, uncomplicated methamphetamine type, severe Psychiatric care Sarcoidosis Reported, have been unable to obtain hx documentation Surgical History History of hand surgery right index finger repaired due to trauma History of surgical procedure on eye proper using laser 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 Family History Father Diabetes Cancer brain Multiple sclerosis Mother Diabetes CHF (congestive heart failure) Grandmother CAD (coronary artery disease) Cancer breast twice Grandfather Cancer bone Other Other stimulant dependence, uncomplicated Social History Smoking and tobacco status: former smoker (03/13/2012) Quit status (tobacco): has quit using tobacco Year quit tobacco: 2011 Second hand smoke exposure: Yes (occasionally) Smoking risk assessment/counseling performed?: No Alcohol intake: current Desire information about alcohol rehabilitation?: No Counseling given: No Desire information about substance/drug rehabilitation?: No (started [facility] ) Adopted: No Caregiver/support person: No Lives independently: Yes Household members: none Housing: Apartment Marital status: Single Number of children: 0 Highest education level completed: 8th Grade service: No Current occupational status: disabled Pets and animals: Yes Pets & animals: dog(s) History of recent travel: No Leisure activites: other Leisure activities details: watch TV, play with dog Sexually active: No Current gender identity: Male Mary Jo/Yazidi: None Special mary jo needs: No Agree to transfusion: Yes Financial difficulty paying for basics: Hard Vitals/I&O/Wt Last Vital Signs Temp 97.9 F 01/08/22 14:56 Pulse 81 01/08/22 16:17 Resp 15 01/08/22 16:17 BP 142/93 01/08/22 16:17 Pulse Ox 95 01/08/22 16:17 Weight last 48 hrs Weight 137.892 kg Physical Exam Const: COMMON NORMALS: no acute distress and patient oriented x3 HENMT: COMMON NORMALS: normocephalic HEAD & SCALP: normocephalic Eye: COMMON NORMALS: Equal, round and reactive pupils present and EOMs intact bilaterally Resp: COMMON NORMALS: normal respiratory effort, No retractions, No use of accessory muscles and clear to auscultation bilaterally AUSCULTATION: crackles Cardio: COMMON NORMALS: regular rate, regular rhythm, S1 normal heart sound present and S2 normal heart sound present RATE: regular rate RHYTHM: regular rhythm HEART SOUNDS: S1 normal heart sound present and S2 normal heart sound present GI: COMMON NORMALS: Normal to inspection, nondistended, normoactive bowel sounds present, Soft to palpation and non-tender Extremity: NARRATIVE EXTREMITY EXAM: 3+ edema Neuro: COMMON NORMALS: patient oriented x3 Psych: COMMON NORMALS: mental status grossly normal Data : 01/08/22 15:01 01/08/22 15:01 A&P Assessment and plan (1) Acute on chronic congestive heart failure: Status: Acute (2) Heart failure with reduced ejection fraction: Status: Acute (3) Left ventricular dysfunction with reduced left ventricular function: Status: Acute (4) Severe methamphetamine use disorder: Status: Acute (5) Hyperlipidemia due to dietary fat intake: Status: Acute (6) Major depressive disorder, recurrent episode, moderate with anxious distress: Status: Chronic (7) Hypertension: Status: Chronic Qualifiers: Hypertension type: essential hypertension Qualified Code(s): I10 - Essential (primary) hypertension Plan New onset CHF systolic Severely increased left ventricular cavity size. Decreased left ?ventricular wall thickness. Severely decreased left ventricular ?systolic function. No regional wall motion abnormalities. Grade ?III/IV diastolic dysfunction (restrictive filling pattern), ?severely elevated filling pressures. Left ventricular ejection ?fraction is estimated at 15%. ?Normal right ventricular size and systolic function. Mild ?pulmonary hypertension, RVSP 44.1 mmHg. ?Structurally normal mitral valve. Mild mitral valve ?regurgitation. ?Trivial pericardial effusion. Echocardiographic findings suggest ?a non hemodynamically significant pericardial effusion. ?There are no prior echocardiogram studies to compare. ?I called the family nurse practitioner who oversees his care. -Possibly secondary to methamphetamine abuse, but could be secondary to underlying CAD -Also severe LVH, possible hypertrophic cardiomyopathy Plan -Admit to cardiac stepdown unit -Start Lasix 40 IV twice daily -Potassium, mag -Fluid restriction 1000 cc -Aspirin, statin, beta-maxwell -Continue lisinopril, spironolactone -N.p.o. midnight, cardiac stress test tomorrow morning -Consult cardiology -Full code -Lovenox for DVT prophylaxis Attestations Medical Necessity Statement*: patient requires hospitalization for systolic CHF, shortness of breath, less than 2 midnights Coding Level of Care Code Acute Chemical Engineering Technician for [facility] Fwd Diagnoses Acute on chronic congestive heart failure I50.9 Heart failure with reduced ejection fraction I50.20 Left ventricular dysfunction with reduced left ventricular function I51.89 Severe methamphetamine use disorder F15.20 Hyperlipidemia due to dietary fat intake E78.49 Major depressive disorder, recurrent episode, moderate with anxious distress F33.1 Hypertension I10 Hypertension type: essential hypertension
[2022-01-08 18:33] LABS: Erythrocyte Sedimentation Rate 7 mm/hr (0-10)
[2022-01-08 18:41] LABS: Procalcitonin 0.04 ng/mL (0-0.5)
--- NOTE | 2022-01-08 18:42 | P.CONIM_ITS ---
Providers/Reason For Consult Consulting Physician/Specialty*: ZEENAT Morin MD/cardiology Reason for Consult*: Patient with congestive heart failure/severe LV dysfunction by echocardiogram Requesting Physician: Dr. Verdugo Attending Physician: Brandon Verdugo MD Primary Care Provider: ANGEL Rouse History of Present Illness History of Present Illness Tenzin Jones is a 41 year old male with a history of hypertension, dyslipidemia, sarcoidosis, heavy methamphetamine abuse, is presenting with 6 weeks of progressive shortness of breath. Patient apparently was seen at the emergency room of an outside hospital couple of times prior to this. During the second visit he was advised for hospital admission. But the patient refused. Subsequently he was seen by the primary care provider. An echocardiogram was ordered. The echocardiogram revealed a severe LV systolic dysfunction. Patient was placed on diuretics. Since the medications were not helping him significantly, he was advised to go back to the emergency room for evaluation and possible hospital admission. The patient has decided to come to our [facility] emergency room to be evaluated. He is currently admitted to the hospital for further evaluation and management. He had at least 3 episodes of passing out spells within the last 1 week. Apparently he passed out and fell to the floor. He also has symptoms of sleep apnea. He has severe daytime somnolence . But he never been tested for sleep apnea. He had the last episode of passing out spell last night. Apparently he was sitting up and then fell to the floor, found himself waking up in the floor. Normal chest pain or palpitations prior to this episode of following this episode He denies any chest pain. He started noticing swelling in the lower extremities and shortness of breath 6 weeks ago. This has been progressively getting worse. Patient apparently been using methamphetamine up to 3 g a day up until 4 years ago. Then he stopped using the IV injections. He has been snorting or smoking methamphetamine up until a week ago. After recognizing the seriousness of his heart condition, he decided to quit this completely. He denies any chest pain or chest tightness. No history for any coronary artery disease, myocardial infarction or congestive heart failure prior to the current episodes. His mother had a myocardial infarction in her 40s. Father had a myocardial infarction at age of 54. Paternal grandmother also had a myocardial infarction in her young age. Patient denies any alcohol abuse or any other substance abuse He was evaluated at the [facility] in [place] many years ago for sarcoidosis. He took treatment for 2 years or so. Then he quit going for follow-up. He has not been to the doctor in [place] for more than 10 years. He has been taking the medication for blood pressure and dyslipidemia, as prescribed. Review of Systems Narrative: CONSTITUTIONAL: No fever or chills. EYES: No blurring of vision or other visual disturbances lately. ENT: No hoarseness of voice, auditory disturbances or sore throat. CARDIOVASCULAR: As mentioned above. RESPIRATORY: Shortness of breath as mentioned above GASTROINTESTINAL: No hematemesis or melena. GENITOURINARY: No dysuria or hematuria. INTEGUMENTARY: No skin rashes or history of skin cancer. NEURO: Recurrent episodes of syncope as mentioned above PSYCHIATRIC: No history of psychosis or major depression. HEMATOLOGIC: No bleeding disorders or significant anemia. ENDOCRINE: No history of polyuria or polydipsia. MUSCULOSKELETAL: No recent joint pain or swelling. ALLERGY/IMMUNOLOGY: As mentioned above. Medications/Allergies Home Medications Medication Instructions Recorded Confirmed Last Taken Type ibuprofen 200 mg tablet 200 mg PO Q6H PRN 12/03/20 01/08/22 Unknown History pantoprazole 40 mg tablet,delayed 40 mg PO DAILY #90 tab 03/06/21 01/08/22 01/08/22 Rx release ondansetron HCl 4 mg tablet 4 mg PO Q8H PRN #90 tab 08/07/21 01/08/22 Unknown Rx (Zofran) cholecalciferol (vitamin D3) 25 25 mcg PO DAILY #30 cap 09/10/21 01/08/22 01/08/22 Rx mcg (1,000 unit) capsule bupropion HCl 300 mg 24 hr tablet, 300 mg PO QAM #30 tab 10/01/21 01/08/22 01/08/22 Rx extended release (Wellbutrin XL) albuterol sulfate 90 mcg/actuation See Rx Instructions .ROUTE 11/10/21 01/08/22 Unknown Rx aerosol inhaler (ProAir HFA) .COMPLEX #8.5 gm lisinopril 10 mg tablet 10 mg PO QDAY #90 tab 11/10/21 01/08/22 01/08/22 Rx rosuvastatin 5 mg tablet 5 mg PO DAILY #90 tab 03/03/2701/08/22 01/07/22 Rx multivitamin (One Daily 1 tab PO DAILY 12/01/21 01/08/22 01/08/22 History Multivitamin) furosemide 40 mg tablet (Lasix) 40 mg PO DAILY 01/06/22 01/08/22 01/08/22 History metoprolol tartrate 50 mg tablet 50 mg PO BID 30 Days #60 tab 01/06/22 01/08/22 01/08/22 Rx (Lopressor) spironolactone 50 mg tablet 50 mg PO BID 30 Days #60 tab 01/06/22 01/08/22 01/08/22 Rx (Aldactone) naltrexone 50 mg tablet 50 mg PO DAILY 01/08/22 01/08/22 01/08/22 History Allergies Allergy/AdvReac Type Severity Reaction Status Date / Time sertraline [From Zoloft] AdvReac Severe Panic Verified 01/06/22 15:56 attack citalopram [From Celexa] AdvReac Intermediate Rash Verified 01/06/22 15:56 PFSH Acute PFSH: Medical History Chronic constipation Chronic post-traumatic stress disorder Flank pain Flank pain Generalized anxiety disorder History of sarcoidosis Hyperlipidemia due to dietary fat intake Hypertension Major depressive disorder, recurrent episode, moderate with anxious distress Mild acid reflux Other stimulant dependence, uncomplicated methamphetamine type, severe Psychiatric care Sarcoidosis Reported, have been unable to obtain hx documentation Surgical History History of hand surgery right index finger repaired due to trauma History of surgical procedure on eye proper using laser 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 Family History Father Diabetes Cancer brain Multiple sclerosis Mother Diabetes CHF (congestive heart failure) Grandmother CAD (coronary artery disease) Cancer breast twice Grandfather Cancer bone Other Other stimulant dependence, uncomplicated Social History Smoking and tobacco status: former smoker (03/13/2012) Quit status (tobacco): has quit using tobacco Year quit tobacco: 2011 Second hand smoke exposure: Yes (occasionally) Smoking risk assessment/counseling performed?: No Alcohol intake: current Desire information about alcohol rehabilitation?: No Counseling given: No Desire information about substance/drug rehabilitation?: No (started [facility] ) Adopted: No Caregiver/support person: No Lives independently: Yes Household members: none Housing: Apartment Marital status: Single Number of children: 0 Highest education level completed: 8th Grade service: No Current occupational status: disabled Pets and animals: Yes Pets & animals: dog(s) History of recent travel: No Leisure activites: other Leisure activities details: watch TV, play with dog Sexually active: No Current gender identity: Male Mary Jo/Confucianism: None Special mary jo needs: No Agree to transfusion: Yes Financial difficulty paying for basics: Hard Vitals/I&O/Wt Last Vital Signs Temp 97.9 F 01/08/22 14:56 Pulse 96 01/08/22 18:35 Resp 17 01/08/22 18:35 BP 164/98 01/08/22 18:35 Pulse Ox 97 01/08/22 18:35 Weight last 48 hrs Weight 304 lb Physical Exam Narrative: GENERAL: The patient is alert and oriented times three. Not in any acute distress. HEENT: No significant pallor, icterus or lymphadenopathy. The pupils are reactant to light. Oral cavity: There are no mucous membrane lesions. Funduscopic examination: The disk margins appear to be sharp with no exudates or hemorrhages. NECK: Trachea appears to be central. No masses noted. Elevated JVD of 4 cm RESPIRATORY: Chest is symmetrical. No intercostals muscle retraction or any accessory muscle activation. There is no chest wall tenderness. Breath sounds are heard bilaterally. No rales or rhonchi heard. No evidence of any consolidation. BREASTS: Deferred. HEART: The PMI could not be palpated. No other palpable precordial events. No palpable precordial events. S1 and S2 are normal. No S3 or S4 heard. No pericardial rub or any click heard. Short systolic murmur in the left sternal border. No diastolic murmurs. ABDOMEN: No vessel pulsations or distention. No tenderness. No organomegaly appreciated. No abdominal bruit. Bowel sounds are normally heard. : Deferred. RECTAL: Deferred. LYMPHATIC: No lymphadenopathy noted in the neck or groin. EXTREMITIES: 2-3+ edema both lower extremities. MUSCULOSKELETAL: No acute joint deformities or swelling. SKIN: Generalized skin rashes in the upper extremities and the trunk. Healed/healing blisters in the lower extremities NEUROPSYCHIATRIC: The patient is alert and oriented x3. Appears to be in a good mood. The higher functions are grossly within normal limits. No tremors or rigidity noted. Data : 01/08/22 15:01 01/08/22 15: Other Labs: Laboratory Last Values WBC 11.0 10^3/uL (4.0-10.0) H 01/08/22 15: RBC 5.51 10^6/uL (4.1-5.3) H 01/08/22 15:01 Hgb 12.8 g/dL (11.7-16.6) 01/08/22 15: Hct 45.2 % (42.0-52.0) 01/08/22 15: MCV 82.0 fl (80-94) 01/08/22 15: MCH 23.2 pg (28.0-34.0) L 01/08/22 15: MCHC 28.3 g/dL (30.0-36.0) L 01/08/22 15: RDW 15.5 % (12.1-15.1) H 01/08/22 15: Plt Count 325 10^3/cmm (130-400) 01/08/22 15: MPV 10.5 fL (7.4-10.4) H 01/08/22 15:01 Neut % (Auto) 70.9 % 01/08/22 15: Lymph % (Auto) 16.0 % 01/08/22 15: [place] % (Auto) 9.4 % 01/08/22 15: Eos % (Auto) 2.5 % 01/08/22 15: Baso % (Auto) 0.8 % 01/08/22 15: Neut # (Auto) 7.82 10^3/uL (1.8-7.7) H 01/08/22 15: Lymph # (Auto) 1.8 10^3/uL (0.8-4.8) 01/08/22 15:01 [place] # (Auto) 1.0 10^3/uL (0.2-0.9) H 01/08/22 15:01 Eos # (Auto) 0.3 10^3/uL (0.0-0.8) 01/08/22 15:01 Baso # (Auto) 0.1 10^3/uL (0.0-0.1) 01/08/22 15:01 Nucleated RBC % (auto) 0 % 01/08/22 15:01 Nucleated RBCs # 0.0 /100WBC 01/08/22 15:01 ESR 7 mm/hr (0-10) 01/08/22 15:01 Sodium 141 mmol/L (136-145) 01/08/22 15:01 Potassium 4.1 mmol/L (3.5-5.1) 01/08/22 15:01 Chloride 103 mmol/L (98-107) 01/08/22 15:01 Carbon Dioxide 30 mmol/L (22-29) H 01/08/22 15:01 Anion Gap 12.1 (5-19) 01/08/22 15:01 BUN 13 mg/dL (6-20) 01/08/22 15:01 Creatinine 1.1 mg/dL (0.7-1.2) 01/08/22 15:01 GFR Calculation 74.5 mL/min (90-130) L 01/08/22 15:01 Glucose 110 mg/dL (65-115) 01/08/22 15:01 Calculated Osmolality 293 mOsm/kg (285-295) 01/08/22 15:01 Calcium 9.4 mg/dL (8.5-10.5) 01/08/22 15:01 Total Bilirubin 0.4 mg/dL (0.15-1.2) 01/08/22 15:01 AST 15 U/L (0-40) 01/08/22 15:01 ALT 16 U/L (0-41) 01/08/22 15:01 Alkaline Phosphatase 80 IU/L (40-130) 01/08/22 15:01 Troponin T Gen 5 ng/L 32 ng/L (0-15) H 01/08/22 15:01 C-Reactive Protein 16.2 mg/L (0.0-4.9) H 01/08/22 15:01 NT-Pro-B Natriuret Pep 3212 pg/mL (0-125) H 01/08/22 15:01 Total Protein 6.7 g/dL (6.6-8.7) 01/08/22 15:01 Albumin 4.0 g/dL (3.5-5.2) 01/08/22 15:01 Globulin 2.7 g/dL (1.3-4.6) 01/08/22 15:01 Procalcitonin 0.04 ng/mL (0-0.5) 01/08/22 15:01 TSH 3.16 uIU/mL (0.27-4.20) 01/08/22 15:01 Urine Opiates Screen Negative ng/mL (Negative) 01/08/22 17:43 Ur Barbiturates Screen Negative ng/mL (Negative) 01/08/22 17:43 Ur Phencyclidine Scrn Negative ng/mL (Negative) 01/08/22 17:43 Ur Amphetamines Screen Negative ng/mL (Negative) 01/08/22 17:43 U Benzodiazepines Scrn Negative ng/mL (Negative) 01/08/22 17:43 Urine Cocaine Screen Negative ng/mL (Negative) 01/08/22 17:43 U Marijuana (THC) Screen Negative ng/mL (Negative) 01/08/22 17:43 Echo: My impression: ?Severely increased left ventricular cavity size. Decreased left ?ventricular wall thickness. Severely decreased left ventricular ?systolic function. No regional wall motion abnormalities. Grade ?III/IV diastolic dysfunction (restrictive filling pattern), ?severely elevated filling pressures. Left ventricular ejection ?fraction is estimated at 15%. ?Normal right ventricular size and systolic function. Mild ?pulmonary hypertension, RVSP 44.1 mmHg. ?Structurally normal mitral valve. Mild mitral valve ?regurgitation. ?Trivial pericardial effusion. Echocardiographic findings suggest ?a non hemodynamically significant pericardial effusion. ?There are no prior echocardiogram studies to compare. ?I called the family nurse practitioner who oversees his care. EKG 1: My Interpretation: EKG showed a normal sinus rhythm with nonspecific T wave changes. Possible left atrial enlargement. Poor R wave progression. Possible old inferior wall myocardial infarction. EKG computer-generated impression: Chest X-Ray 01/08/22 14:09 IMPRESSION: 1. Enlarged cardiac silhouette size with probable mild vascular congestion. 2. No obvious acute consolidation. Suboptimal lung base assessment. Followup including lateral view may be obtained if clinically indicated. A&P Assessment and plan (1) Acute on chronic congestive heart failure: Patient has currently class III heart failure symptoms. He may be carefully treated with IV diuretics and other heart failure medications. The EKG may suggest, old inferior wall OK. T wave changes in the high lateral wall, is suggestive of ischemia. To further evaluate his coronary status, he may benefit from a cardiac catheterization. Once his heart failure is appropriately treated, we may consider the cardiac catheterization Status: Acute (2) Recurrent syncope: Etiology is not clear. Possibility of high degree heart block/malignant tachyarrhythmias are considerations. Patient needs to be closely monitored on telemetry. Status: Acute (3) Benign essential hypertension with target blood pressure below 140/90: Currently the blood pressure is a stage II. We will optimize the an tihypertensive medications. Status: Acute (4) Sarcoidosis: This may require further evaluations. Status: Acute (5) Dyslipidemia: May continue on the current medications. Status: Acute (6) Family history of premature coronary artery disease: The EKG shows possible old inferior wall OK. The patient may benefit from a cardiac catheterization to further evaluate the coronary status and decide on further management. Status: Acute (7) Obstructive sleep apnea: Patient apparently has severe daytime somnolence. He never been tested for sleep apnea. Status: Acute Plan Patient has a history of heavy methamphetamine abuse-quit a week ago Restart on spironolactone 25 mg p.o. daily. Jardiance 10 mg p.o. daily. Change lisinopril to losartan 25 mg p.o. daily Consult Attestations Medical Necessity Statement: Patient requires continued hospital stay for close monitoring and further management Coding Level of Care Code Acute Manager Administrative Services for [facility] Fwd History Detailed Exam Detailed Medical Decision Making High Complexity Diagnoses Acute on chronic congestive heart failure I50.9 Recurrent syncope R55 Benign essential hypertension with target blood pressure below 140/90 I10 Sarcoidosis D86.9 Dyslipidemia E78.5 Family history of premature coronary artery disease Z82.49 Obstructive sleep apnea G47.33 Time Spent (min) 70
[2022-01-08 18:52] LABS: C Reactive Protein 16.2 mg/L (0.0-4.9)
--- NOTE | 2022-01-08 18:54 | ECG_ITS ---
[facility] Test Date: 2022-01-09 Pat Name: Tenzin Jones Department: Room: 104 Gender: Male Supervisor Bindery: Stephanie Shahn : 1980 Requested By: Brandon Verdugo Order Number: [id number] Ramon MD: Lionel Kingsley M.D. Interpretive Statements NAME OF STUDY: LEXISCAN SESTAMIBI STRESS TEST INDICATION: [Shortness of Breath, ] Procedure: At the baseline, the blood pressure was 140/81 mmHg with a heart rate of 84 bpm. The electrocardiogram showed normal sinus rhythm, normal axis with normal ST and T's. The Lexiscan was infused over a period of 20 seconds. A total of 0.4 mg of Lexiscan was infused. The stress phase was continued for a total of 5 minutes. Heart rate was at the end of stress phase was 91 bpm and a blood pressure of 146/102 mmHg. The EKG at the peak infusion revealed normal sinus rhythm with no significant ST-T wave changes. Sestamibi was injected 20 seconds after the Lexiscan infusion. Blood pressure at the end of recovery phase was 145/93 mmHg with a heart rate of 92 bpm. Conclusion: 1. Normal EKG response to Lexiscan infusion 2. No Lexiscan induced chest pain or cardiac arrhythmia. 3. Normal blood pressure and heart rate response. 4. Sestamibi/sestamibi perfusion scan pending; see separate report. Electronically Signed On 02-05-2022 15:07:50 CDT by Lionel Kingsley M.D. [id number]
[2022-01-08 18:55] LABS: Amphetamines Screen Urine Negative (Negative); Barbiturates Screen Urine Negative (Negative); Benzodiazepines Screen Urine Negative (Negative); Cocaine Screen Urine Negative (Negative); Opiate Screen Urine Negative (Negative); PCP Screen Urine Negative (Negative); THC Screen Urine Negative (Negative)
[2022-01-08] MEDS: aspirin 81 mg EC Tablet PO (20:54)
[2022-01-08] MEDS: metoprolol tartrate 50 mg Tablet PO (20:55)
[2022-01-08] MEDS: enoxaparin 40 mg/0.4 mL Syringe SUBCUT (20:56)
[2022-01-08] MEDS: atorvastatin 40 mg Tablet PO (20:56)
[2022-01-09] VITALS (15 sets, daily range): BP systolic 94–145; BP diastolic 73–99; PULSE 73–91; RESP 17–23; TEMP 36.1–37.1; O2SAT 92–99
[2022-01-09] MEDS: buPROPion XL (24 HR) 300 mg Tablet PO (06:30)
--- NOTE | 2022-01-09 06:30 | NMCV_ITS ---
NM richi perf SPECT r/s* [id number] Tenzin Jones Age: 41 Gender: M : 1980 Exam Date: 01/09/2022 07:14 Ordering Phys: Brandon Verdugo MD Technologist: LADY Donahue Exam Location: [facility] Indications: CHEST PAIN; REDUCED EF STRESS TEST Please see separate stress test report in [facility] for full findings IMAGE PROTOCOL Rest/Stress 1 Lexiscan Day Radiopharmaceutical Dose (mCi) Administration Site Administered by Rest: Tc-99m 10.9 IV LADY Dominguez Sestamibi Stress:Tc-99m 33.0 IV LADY Dominguez Sestamibi Rest: 09-Jan-2022 60 Discovery 630 Stress: 09-Jan-2022 30 Discovery 630 0.4mg Lexiscan. Supine position only as patient was unable to lay prone. SPECT RESULTS Technical Quality: Excellent Raw Data Analysis: Normal Image Corrections: No attenuation or motion correction applied Summed Stress Score: 8 Summed Rest Score: 9 Summed Difference Score: 1 PERFUSION FINDINGS There is a moderate to large sized, mostly fixed perfusion defect in the apical inferior, inferior, apical anterior, apical lateral carrizales. This is consistent with large sized prior infarct with small area of lobo-infarct ischemia in these territories. FUNCTIONAL RESULTS (calculated via Gated SPECT) Stress Image LV EF (%): 24 Stress EDV (mL):203 TID: 1.14 Stress ESV (mL):155 FUNCTIONAL FINDINGS: LV systolic function is severely reduced with EF of 24% IMPRESSIONS 1. Abnormal myocardial perfusion imaging with large sized prior infarct seen in apical lateral , apical inferior, inferior and apical anterior carrizales with small area of lobo-infarct ischemia 2. LV systolic function is severely reduced with EF of 24% Lionel Kingsley MD (Electronically Signed) Final Date: 09 Jan 2022 12:29 S
--- NOTE | 2022-01-09 07:41 | PM.PN ---
Subjective Subjective: The patient apparently had hypoxia and bradycardia through the night. He was placed on CPAP. Since then, his oxygenation and heart rate are back to normal. He seems to have severe sleep apnea. Denies any chest pain. Shortness of breath is improving. He has some difficulty in getting used to the CPAP. However he seems to be feeling better with this. Denies any fever or chills. No cough. No other specific complaints. Medications: Medication Review Details: Current Medications Acetaminophen (Acetaminophen 325 Mg Tablet) 650 mg PO Q6H PRN PRN Reason: Mild/Mod Pain Or Temp >/= 101 Aminophylline (Aminophylline 25 Mg/Ml Sdv 10 Ml) 25 mg IVP Q2M PRN PRN Reason: see dose instructions Stop: 01/10/22 06:59 Aspirin (Aspirin 81 Mg Ec Tablet) 81 mg PO DAILY [facility] Last Admin: 01/08/22 20:54 Dose: 81 mg Documented by: Atorvastatin Calcium (Atorvastatin 40 Mg Tablet) 20 mg PO DAILY [facility] Atorvastatin Calcium (Atorvastatin 40 Mg Tablet) 40 mg PO BEDTIME [facility] Last Admin: 01/08/22 20:56 Dose: 40 mg Documented by: Bisacodyl (Bisacodyl 5 Mg Tablet) 10 mg PO DAILY PRN; Protocol PRN Reason: Constipation (see protocol) Bupropion HCl (Bupropion Xl (24 Hr) 300 Mg Tablet) 300 mg PO QAM [facility] Last Admin: 01/09/22 06:30 Dose: 300 mg Documented by: Enoxaparin Sodium (Enoxaparin 40 Mg/0.4 Ml Syringe) 40 mg SUBCUT Q24H [facility] Last Admin: 01/08/22 20:56 Dose: 40 mg Documented by: Furosemide (Furosemide 10 Mg/Ml Sdv 4ml) 40 mg IVP Q12H [facility] Last Admin: 01/08/22 20:57 Dose: 40 mg Documented by: Losartan Potassium (Losartan 50 Mg Tablet) 25 mg PO DAILY [facility] Metoprolol Tartrate (Metoprolol Tartrate 50 Mg Tablet) 50 mg PO BID [facility] Last Admin: 01/08/22 20:55 Dose: 50 mg Documented by: Nitroglycerin (Nitroglycerin 0.4 Mg Sublingual Tablet) 0.4 mg SUBLINGUAL Q5M PRN PRN Reason: CHEST PAIN Stop: 01/10/22 06:59 Ondansetron HCl (Ondansetron 2 Mg/Ml Sdv 2 Ml) 4 mg IVP Q8H PRN PRN Reason: vomiting, or N/V if npo Ondansetron HCl (Ondansetron 2 Mg/Ml Sdv 2 Ml) 4 mg IVP Q2M PRN PRN Reason: NAUSEA Pantoprazole Sodium (Pantoprazole Dr 40 Mg Tablet) 40 mg PO DAILY [facility] Regadenoson (Regadenoson 0.4 Mg/5 Ml Syringe) 0.4 mg IVP ONCE PRN PRN Reason: Lexiscan Stress Test Spironolactone (Spironolactone 25 Mg Tablet) 25 mg PO DAILY [facility] Vitamin D (Cholecalciferol (Vitamin D3) 1,000 Unit Tablet) 1,000 unit PO DAILY [facility] Vitals/I&O/Wt Last Vital Signs Temp 97.5 F L 01/09/22 00:00 Pulse 84 01/09/22 07:00 Resp 22 H 01/09/22 04:00 BP 138/97 01/09/22 04:00 Pulse Ox 98 01/09/22 06:44 01/08/22 01/09/22 01/09/22 22:59 06:59 14:59 Output Total 1999 / 1999 500 / 2500 Balance -2000 / -2000 -500 / -2500 Weight last 48 hrs Weight 305 lb Weight 304 lb Physical Exam Narrative: GENERAL: The patient is alert and oriented times three. Not in any acute distress. HEENT: No significant pallor, icterus or lymphadenopathy. The pupils are reactant to light. Oral cavity: There are no mucous membrane lesions. NECK: Trachea appears to be central. No masses noted. Elevated JVD of 4 cm RESPIRATORY: Chest is symmetrical. No intercostals muscle retraction or any accessory muscle activation. There is no chest wall tenderness. Breath sounds are heard bilaterally. No rales or rhonchi heard. No evidence of any consolidation. BREASTS: Deferred. HEART: The PMI could not be palpated. No other palpable precordial events. No palpable precordial events. S1 and S2 are normal. No S3 or S4 heard. No pericardial rub or any click heard. Short systolic murmur in the left sternal border. No diastolic murmurs. ABDOMEN: No vessel pulsations or distention. No tenderness. No organomegaly appreciated. No abdominal bruit. Bowel sounds are normally heard. : Deferred. RECTAL: Deferred. LYMPHATIC: No lymphadenopathy noted in the neck or groin. EXTREMITIES: 2+ edema both lower extremities. MUSCULOSKELETAL: No acute joint deformities or swelling. SKIN: Generalized skin rashes in the upper extremities and the trunk. Healed/healing blisters in the lower extremities NEUROPSYCHIATRIC: The patient is alert and oriented x3. Appears to be in a good mood. The higher functions are grossly within normal limits. No tremors or rigidity noted. Data : 01/08/22 15:01 01/08/22 15:01 Micro: Microbiology 01/08/22 18:57 Blood Culture - Preliminary Blood SPECIMEN COLLECTED 01/08/22 18:53 Blood Culture - Preliminary Blood SPECIMEN COLLECTED A&P Assessment and plan (1) Acute on chronic congestive heart failure: Patient has currently class III heart failure symptoms. He may be carefully treated with IV diuretics and other heart failure medications. The EKG may suggest, old inferior wall CO. T wave changes in the high lateral wall, is suggestive of ischemia. To further evaluate his coronary status, he may benefit from a cardiac catheterization. Once his heart failure is appropriately treated, we may consider the cardiac catheterization We will continue the IV diuresis for the time being. The other medications also may be continued. Status: Acute (2) Recurrent syncope: Etiology is not clear. Possibility of high degree heart block/malignant tachyarrhythmias are considerations. Patient needs to be closely monitored on telemetry. So far there is no malignant arrhythmias on the monitor. Patient's sleep apnea may be a contributing factor. Status: Acute (3) Benign essential hypertension with target blood pressure below 140/90: Currently the blood pressure is a stage II. We will optimize the antihypertensive medications. I will increase the dose of the losartan to 50 mg p.o. daily Status: Acute (4) Sarcoidosis: This may require further evaluations. Status: Acute (5) Dyslipidemia: May continue on the current medications. Status: Acute (6) Family history of premature coronary artery disease: The EKG shows possible old inferior wall CO. The patient may benefit from a cardiac catheterization to further evaluate the coronary status and decide on further management. Status: Acute (7) Obstructive sleep apnea: May continue on the CPAP. Status: Acute Plan Patient has a history of heavy methamphetamine abuse-quit a week ago Patient may continue on the other current medications. Based on the clinical progress, further management decisions will be made Attestations Medical Necessity Statement*: Patient requires continued hospital stay for close monitoring and further management Coding Level of Care Code Acute Elevator Pilot for Chg Fwd History Expanded Problem Focused Exam Detailed Medical Decision Making Moderate Complexity Diagnoses Acute on chronic congestive heart failure I50.9 Recurrent syncope R55 Benign essential hypertension with target blood pressure below 140/90 I10 Sarcoidosis D86.9 Dyslipidemia E78.5 Family history of premature coronary artery disease Z82.49 Obstructive sleep apnea G47.33
[2022-01-09] MEDS: regadenoson 0.4 Mg/5 ml Syringe IVP (07:59)
[2022-01-09] MEDS: ondansetron 2 mg/ML SDV 2 mL 4 MG IVP (07:59)
--- NOTE | 2022-01-09 09:17 | P.PN_ITS ---
Subjective Medications: Medication Review Details: Patient was seen this morning, in the stress lab, he continues to have lower extremity edema, shortness of breath, he had shortness of breath throughout the night, improved with CPAP, he tells his difficulty wearing his CPAP mask, but he feels a lot better, no chest pain, Vitals/I&O/Wt Last Vital Signs Temp 97.4 F L 01/09/22 09:02 Pulse 91 01/09/22 09:02 Resp 22 H 01/09/22 09:02 BP 133/99 01/09/22 09:02 Pulse Ox 95 01/09/22 09:02 01/08/22 01/09/22 01/09/22 22:59 06:59 14:59 Output Total 1999 500 / 2500 Balance -1999 / -500 / -2500 Weight last 48 hrs Weight 138.346 kg Weight 137.892 kg Physical Exam Const: COMMON NORMALS: no acute distress and patient oriented x3 Resp: OTHER: Crackles in bilateral lung thomas Cardio: COMMON NORMALS: regular rate, regular rhythm, S1 normal heart sound present and S2 normal heart sound present RATE: regular rate RHYTHM: regular rhythm HEART SOUNDS: S1 normal heart sound present and S2 normal heart sound present GI: COMMON NORMALS: Normal to inspection, nondistended, normoactive bowel sounds present, Soft to palpation and non-tender PALPATION: Yes Soft to palpation Extremity: NARRATIVE EXTREMITY EXAM: 2+ pitting edema bilateral extremity Neuro: COMMON NORMALS: patient oriented x3 Psych: COMMON NORMALS: mental status grossly normal Data : 01/08/22 15:01 01/08/22 15:01 Micro: Microbiology 01/08/22 18:57 Blood Culture - Preliminary Blood SPECIMEN COLLECTED 01/08/22 18:53 Blood Culture - Preliminary Blood SPECIMEN COLLECTED A&P Assessment and plan (1) Acute on chronic congestive heart failure: Status: Acute (2) Heart failure with reduced ejection fraction: Status: Acute (3) Left ventricular dysfunction with reduced left ventricular function: Status: Acute (4) Severe methamphetamine use disorder: Status: Acute (5) Hyperlipidemia due to dietary fat intake: Status: Acute (6) Major depressive disorder, recurrent episode, moderate with anxious distress: Status: Chronic (7) Hypertension: Status: Chronic Qualifiers: Hypertension type: essential hypertension Qualified Code(s): I10 - Essential (primary) hypertension Plan New onset CHF systolic -Acute exacerbation, fluid overload, bilateral lower extremity edema, shortness of breath Severely increased left ventricular cavity size. Decreased left ?ventricular wall thickness. Severely decreased left ventricular ?systolic function. No regional wall motion abnormalities. Grade ?III/IV diastolic dysfunction (restrictive filling pattern), ?severely elevated filling pressures. Left ventricular ejection ?fraction is estimated at 15%. ?Normal right ventricular size and systolic function. Mild ?pulmonary hypertension, RVSP 44.1 mmHg. ?Structurally normal mitral valve. Mild mitral valve ?regurgitation. ?Trivial pericardial effusion. Echocardiographic findings suggest ?a non hemodynamically significant pericardial effusion. ?There are no prior echocardiogram studies to compare. ?I called the family nurse practitioner who oversees his care. -Possibly secondary to methamphetamine abuse, but could be secondary to underlying CAD -Also severe LVH, possible hypertrophic cardiomyopathy Plan -Admit to cardiac stepdown unit -Continue Lasix 40 IV twice daily -Potassium, mag -Fluid restriction 1000 cc -Aspirin, statin, beta-maxwell -Continue lisinopril, spironolactone -Undergoing cardiac stress test follow results -Also has sleep apnea, continue CPAP during the night -Consult cardiology -Full code -Lovenox for DVT prophylaxis Attestations Medical Necessity Statement*: Patient requires hospitalization for new onset CHF, fluid overload systolic inpatient, greater than 2 midnights Coding Level of Care Code Acute Camouflage Specialist for Chg Fwd Diagnoses Acute on chronic congestive heart failure I50.9 Heart failure with reduced ejection fraction I50.20 Left ventricular dysfunction with reduced left ventricular function I51.89 Severe methamphetamine use disorder F15.20 Hyperlipidemia due to dietary fat intake E78.49 Major depressive disorder, recurrent episode, moderate with anxious distress F33.1 Hypertension I10 Hypertension type: essential hypertension
[2022-01-09] MEDS: losartan 50 mg Tablet PO (09:52)
[2022-01-09] MEDS: pantoprazole DR 40 mg Tablet PO (09:53)
[2022-01-09] MEDS: metoprolol tartrate 50 mg Tablet PO ×2 (09:53→18:18)
[2022-01-09] MEDS: FUROsemide 10 mg/mL SDV 4mL 40 MG IVP ×2 (09:53→22:21)
[2022-01-09] MEDS: spironolactone 25 mg Tablet PO (09:53)
[2022-01-09] MEDS: cholecalciferol (vitamin D3) 1,000 unit Tablet 1000 UNIT PO (09:53)
[2022-01-09] MEDS: aspirin 81 mg EC Tablet PO (09:53)
[2022-01-09 10:13] LABS: Basophils # 0.1 10^3/uL (0.0-0.1); Basophils % 1.3 %; Eosinophils # 0.4 10^3/uL (0.0-0.8); Eosinophils % 3.7 %; Hematocrit 44.1 % (42.0-52.0); Hemoglobin 12.8 g/dL (11.7-16.6); Lymphocytes # 1.7 10^3/uL (0.8-4.8); Lymphocytes % 17.1 %; Mean Corpuscular Hemoglobin 23.5 pg (28.0-34.0); Mean Corpuscular Volume 81.1 fl (80-94); Mean Platelet Volume 10.2 fL (7.4-10.4); Monocytes # 0.7 10^3/uL (0.2-0.9); Monocytes % 6.7 %; Neutrophils # 7.14 10^3/uL (1.8-7.7); Neutrophils % 70.8 %; Nucleated Red Blood Cells % 0 %; Platelet Count 307 10^3/cmm (130-400); Red Blood Count 5.44 10^6/uL (4.1-5.3); Red Cell Distribution Width 15.4 % (12.1-15.1); White Blood Count 10.1 10^3/uL (4.0-10.0)
[2022-01-09 10:44] LABS: Estmated Average Glucose 131; Hemoglobin A1C 6.2 % (4.0-6.0)
[2022-01-09 10:45] LABS: Alanine Aminotransferase 13 U/L (0-41); Albumin Level 3.5 g/dL (3.5-5.2); Alkaline Phosphatase 75 IU/L (40-130); Anion Gap 14.9 (5-19); Aspartate Amino Transferase 15 U/L (0-40); Blood Urea Nitrogen 15 mg/dL (6-20); Calcium 9.4 mg/dL (8.5-10.5); Carbon Dioxide 28 mmol/L (22-29); Chloride 100 mmol/L (98-107); Globulin 3.5 g/dL (1.3-4.6); Glomerular Filtration Rate 74.5 mL/min (90-130); Glucose 123 mg/dL (65-115); Magnesium 1.9 mg/dL (1.7-2.3); Osmolality Calculated 290 mOsm/kg (285-295); Phosphorus 4.6 mg/dL (2.5-4.5); Potassium 3.9 mmol/L (3.5-5.1); Sodium 139 mmol/L (136-145); Thyroid Stimulating Hormone 2.15 uIU/mL (0.27-4.20); Total Bilirubin 0.7 mg/dL (0.15-1.2)
[2022-01-09 10:49] LABS: Chol HDL Ratio 4.82 mg/dL (1.0-5.00); Cholesterol 135 mg/dL (0-200); HDL Cholesterol 28 mg/dL (60-100); LDL Cholesterol Calculated 88 mg/dL (50-129); LDL HDL Ratio 3.14 RATIO (0.00-3.22); NT Pro B Type Natriuretic Pept 2710 pg/mL (0-125); Triglycerides 95 mg/dL (0-150)
[2022-01-09] MEDS: enoxaparin 40 mg/0.4 mL Syringe SUBCUT (22:20)
[2022-01-09] MEDS: atorvastatin 40 mg Tablet PO (22:21)
[2022-01-10] VITALS (15 sets, daily range): BP systolic 98–116; BP diastolic 65–77; PULSE 64–84; RESP 17–36; TEMP 36.6; O2SAT 93–97
--- NOTE | 2022-01-10 04:10 | PC.NURSE ---
Pt lying in bed resting with eyes closed. Resp even and non-labored no distress noted. Pt sleeping with C-pap. Pt had no c/o pain or discomfort at the present time. No needs voiced. Call light in reach.
[2022-01-10 04:58] LABS: Basophils # 0.1 10^3/uL (0.0-0.1); Basophils % 1.4 %; Eosinophils # 0.4 10^3/uL (0.0-0.8); Eosinophils % 3.7 %; Hematocrit 45.1 % (42.0-52.0); Hemoglobin 12.9 g/dL (11.7-16.6); Lymphocytes # 2.2 10^3/uL (0.8-4.8); Lymphocytes % 22.6 %; Mean Corpuscular HGB Conc 28.6 g/dL (30.0-36.0); Mean Corpuscular Hemoglobin 23.2 pg (28.0-34.0); Mean Corpuscular Volume 81.3 fl (80-94); Mean Platelet Volume 10.7 fL (7.4-10.4); Monocytes % 9.7 %; Neutrophils # 6.19 10^3/uL (1.8-7.7); Neutrophils % 62.3 %; Nucleated Red Blood Cells % 0 %; Platelet Count 353 10^3/cmm (130-400); Red Blood Count 5.55 10^6/uL (4.1-5.3); Red Cell Distribution Width 15.5 % (12.1-15.1); White Blood Count 9.9 10^3/uL (4.0-10.0)
[2022-01-10] MEDS: buPROPion XL (24 HR) 300 mg Tablet PO (05:16)
[2022-01-10 05:28] LABS: Alanine Aminotransferase 12 U/L (0-41); Albumin Level 3.3 g/dL (3.5-5.2); Alkaline Phosphatase 74 IU/L (40-130); Blood Urea Nitrogen 26 mg/dL (6-20); Calcium 9.8 mg/dL (8.5-10.5); Carbon Dioxide 28 mmol/L (22-29); Chloride 100 mmol/L (98-107); Glomerular Filtration Rate 56.4 mL/min (90-130); Glucose 103 mg/dL (65-115); Magnesium 2.1 mg/dL (1.7-2.3); Osmolality Calculated 293 mOsm/kg (285-295); Phosphorus 6.8 mg/dL (2.5-4.5); Sodium 139 mmol/L (136-145); Total Bilirubin 0.4 mg/dL (0.15-1.2); Total Protein 7.3 g/dL (6.6-8.7)
[2022-01-10 05:58] LABS: Anion Gap 15.3 (5-19); Potassium 4.3 mmol/L (3.5-5.1)
--- NOTE | 2022-01-10 07:46 | PC.NURSE ---
recieved bedside report from mata, pt resting comfortably on cpap. reviewed poc, assumed care of patient. no needs identified at this time.
[2022-01-10] MEDS: metoprolol tartrate 50 mg Tablet PO ×2 (08:49→17:30)
[2022-01-10] MEDS: cholecalciferol (vitamin D3) 1,000 unit Tablet 1000 UNIT PO (08:50)
[2022-01-10] MEDS: aspirin 81 mg EC Tablet PO (08:50)
[2022-01-10] MEDS: FUROsemide 10 mg/mL SDV 4mL 40 MG IVP ×2 (08:50→14:48)
[2022-01-10] MEDS: pantoprazole DR 40 mg Tablet PO (08:50)
[2022-01-10] MEDS: spironolactone 25 mg Tablet PO (08:50)
[2022-01-10] MEDS: losartan 50 mg Tablet PO (08:51)
--- NOTE | 2022-01-10 09:49 | P.PN_ITS ---
Subjective Subjective: The patient is feeling better. He seems to be diuresing fairly well. Denies any chest pain or chest tightness. No unusual shortness of breath. No fever or chills. No cough. Medications: Medication Review Details: Current Medications Acetaminophen (Acetaminophen 325 Mg Tablet) 650 mg PO Q6H PRN PRN Reason: Mild/Mod Pain Or Temp >/= 101 Aspirin (Aspirin 81 Mg Ec Tablet) 81 mg PO DAILY [facility] Last Admin: 01/10/22 08:50 Dose: 81 mg Documented by: Atorvastatin Calcium (Atorvastatin 40 Mg Tablet) 40 mg PO BEDTIME [facility] Last Admin: 01/09/22 22:21 Dose: 40 mg Documented by: Bisacodyl (Bisacodyl 5 Mg Tablet) 10 mg PO DAILY PRN; Protocol PRN Reason: Constipation (see protocol) Bupropion HCl (Bupropion Xl (24 Hr) 300 Mg Tablet) 300 mg PO QAM [facility] Last Admin: 01/10/22 05:16 Dose: 300 mg Documented by: Enoxaparin Sodium (Enoxaparin 40 Mg/0.4 Ml Syringe) 40 mg SUBCUT Q24H [facility] Last Admin: 01/09/22 22:20 Dose: 40 mg Documented by: Furosemide (Furosemide 10 Mg/Ml Sdv 4ml) 40 mg IVP Q24H [facility] Last Admin: 01/10/22 08:50 Dose: 40 mg Documented by: Losartan Potassium (Losartan 50 Mg Tablet) 50 mg PO DAILY [facility] Last Admin: 01/10/22 08:51 Dose: 50 mg Documented by: Metoprolol Tartrate (Metoprolol Tartrate 50 Mg Tablet) 50 mg PO BID [facility] Last Admin: 01/10/22 08:49 Dose: 50 mg Documented by: Ondansetron HCl (Ondansetron 2 Mg/Ml Sdv 2 Ml) 4 mg IVP Q8H PRN PRN Reason: vomiting, or N/V if npo Ondansetron HCl (Ondansetron 2 Mg/Ml Sdv 2 Ml) 4 mg IVP Q2M PRN PRN Reason: NAUSEA Last Admin: 01/09/22 07:59 Dose: 4 mg Documented by: Pantoprazole Sodium (Pantoprazole Dr 40 Mg Tablet) 40 mg PO DAILY [facility] Last Admin: 01/10/22 08:50 Dose: 40 mg Documented by: Spironolactone (Spironolactone 25 Mg Tablet) 25 mg PO DAILY [facility] Last Admin: 01/10/22 08:50 Dose: 25 mg Documented by: Vitamin D (Cholecalciferol (Vitamin D3) 1,000 Unit Tablet) 1,000 unit PO DAILY [facility] Last Admin: 01/10/22 08:50 Dose: 1,000 unit Documented by: Vitals/I&O/Wt Last Vital Signs Temp 98 F 01/10/22 08:00 Pulse 77 01/10/22 08:00 Resp 30 H 01/10/22 08:00 BP 116/77 01/10/22 08:51 Pulse Ox 94 01/10/22 08:00 01/09/22 01/10/22 01/10/22 22:59 06:59 14:59 Intake Total 286 / 286 Output Total 480 / 2020 600 / 2620 Balance -194 / -1734 -600 / -2334 Weight last 48 hrs Weight 305 lb Weight 304 lb Physical Exam Narrative: GENERAL: The patient is alert and oriented times three. Not in any acute distress. HEENT: No significant pallor, icterus or lymphadenopathy. The pupils are reactant to light. Oral cavity: There are no mucous membrane lesions. NECK: Trachea appears to be central. No masses noted. RESPIRATORY: Chest is symmetrical. No intercostals muscle retraction or any accessory muscle activation. There is no chest wall tenderness. Breath sounds are heard bilaterally. No rales or rhonchi heard. No evidence of any consolidation. BREASTS: Deferred. HEART: The PMI could not be palpated. No other palpable precordial events. No palpable precordial events. S1 and S2 are normal. No S3 or S4 heard. No pericardial rub or any click heard. Short systolic murmur in the left sternal border. No diastolic murmurs. ABDOMEN: No vessel pulsations or distention. No tenderness. No organomegaly appreciated. No abdominal bruit. Bowel sounds are normally heard. : Deferred. RECTAL: Deferred. LYMPHATIC: No lymphadenopathy noted in the neck or groin. EXTREMITIES: 1-2+ edema both lower extremities. MUSCULOSKELETAL: No acute joint deformities or swelling. SKIN: Generalized skin rashes in the upper extremities and the trunk. Healed/healing blisters in the lower extremities NEUROPSYCHIATRIC: The patient is alert and oriented x3. Appears to be in a good mood. The higher functions are grossly within normal limits. No tremors or rigidity noted. Data : 01/10/22 04:20 01/10/22 04:20 Other Labs: Laboratory Last Values WBC 9.9 10^3/uL (4.0-10.0) 01/10/22 04:20 RBC 5.55 10^6/uL (4.1-5.3) H 01/10/22 04:20 Hgb 12.9 g/dL (11.7-16.6) 01/10/22 04:20 Hct 45.1 % (42.0-52.0) 01/10/22 04:20 MCV 81.3 fl (80-94) 01/10/22 04:20 MCH 23.2 pg (28.0-34.0) L 01/10/22 04:20 MCHC 28.6 g/dL (30.0-36.0) L 01/10/22 04:20 RDW 15.5 % (12.1-15.1) H 01/10/22 04:20 Plt Count 353 10^3/cmm (130-400) 01/10/22 04:20 MPV 10.7 fL (7.4-10.4) H 01/10/22 04:20 Neut % (Auto) 62.3 % 01/10/22 04:20 Lymph % (Auto) 22.6 % 01/10/22 04:20 [place] % (Auto) 9.7 % 01/10/22 04:20 Eos % (Auto) 3.7 % 01/10/22 04:20 Baso % (Auto) 1.4 % 01/10/22 04:20 Neut # (Auto) 6.19 10^3/uL (1.8-7.7) 01/10/22 04:20 Lymph # (Auto) 2.2 10^3/uL (0.8-4.8) 01/10/22 04:20 [place] # (Auto) 1.0 10^3/uL (0.2-0.9) H 01/10/22 04:20 Eos # (Auto) 0.4 10^3/uL (0.0-0.8) 01/10/22 04:20 Baso # (Auto) 0.1 10^3/uL (0.0-0.1) 01/10/22 04:20 Nucleated RBC % (auto) 0 % 01/10/22 04:20 Nucleated RBCs # 0.0 /100WBC 01/10/22 04:20 ESR 7 mm/hr (0-10) 01/08/22 15:01 Sodium 139 mmol/L (136-145) 01/10/22 04:20 Potassium 4.3 mmol/L (3.5-5.1) 01/10/22 04:20 Chloride 100 mmol/L (98-107) 01/10/22 04:20 Carbon Dioxide 28 mmol/L (22-29) 01/10/22 04:20 Anion Gap 15.3 (5-19) 01/10/22 04:20 BUN 26 mg/dL (6-20) H 01/10/22 04:20 Creatinine 1.4 mg/dL (0.7-1.2) H 01/10/22 04:20 GFR Calculation 56.4 mL/min (90-130) L 01/10/22 04:20 Glucose 103 mg/dL (65-115) 01/10/22 04:20 Estimat Average Glucose 131 01/09/22 10:00 Hemoglobin A1c 6.2 % (4.0-6.0) H 01/09/22 10:00 Calculated Osmolality 293 mOsm/kg (285-295) 01/10/22 04:20 Calcium 9.8 mg/dL (8.5-10.5) 01/10/22 04:20 Phosphorus 6.8 mg/dL (2.5-4.5) H 01/10/22 04:20 Magnesium 2.1 mg/dL (1.7-2.3) 01/10/22 04:20 Total Bilirubin 0.4 mg/dL (0.15-1.2) 01/10/22 04:20 AST U/L (0-40) 01/10/22 04:20 ALT 12 U/L (0-41) 01/10/22 04:20 Alkaline Phosphatase 74 IU/L (40-130) 01/10/22 04:20 Troponin T Gen 5 ng/L 32 ng/L (0-15) H 01/08/22 15:01 C-Reactive Protein 16.2 mg/L (0.0-4.9) H 01/08/22 15:01 NT-Pro-B Natriuret Pep 2710 pg/mL (0-125) H 01/09/22 10:00 Total Protein 7.3 g/dL (6.6-8.7) 01/10/22 04:20 Albumin 3.3 g/dL (3.5-5.2) L 01/10/22 04:20 Globulin 4.0 g/dL (1.3-4.6) 01/10/22 04:20 Triglycerides 95 mg/dL (0-150) 01/09/22 10:00 Cholesterol 135 mg/dL (0-200) 01/09/22 10:00 LDL Cholesterol, Calc 88 mg/dL (50-129) 01/09/22 10:00 HDL Cholesterol 28 mg/dL (60-100) L 01/09/22 10:00 LDL/HDL Ratio 3.14 RATIO (0.00-3.22) 01/09/22 10:00 Cholesterol/HDL Ratio 4.82 mg/dL (1.0-5.00) 01/09/22 10:00 Procalcitonin 0.04 ng/mL (0-0.5) 01/08/22 15:01 TSH 2.15 uIU/mL (0.27-4.20) 01/09/22 10:00 Urine Opiates Screen Negative ng/mL (Negative) 01/08/22 17:43 Ur Barbiturates Screen Negative ng/mL (Negative) 01/08/22 17:43 Ur Phencyclidine Scrn Negative ng/mL (Negative) 01/08/22 17:43 Ur Amphetamines Screen Negative ng/mL (Negative) 01/08/22 17:43 U Benzodiazepines Scrn Negative ng/mL (Negative) 01/08/22 17:43 Urine Cocaine Screen Negative ng/mL (Negative) 01/08/22 17:43 U Marijuana (THC) Screen Negative ng/mL (Negative) 01/08/22 17:43 Micro: Microbiology 01/08/22 18:57 Blood Culture - Preliminary Blood NEGATIVE TO DATE 01/08/22 18:53 Blood Culture - Preliminary Blood NEGATIVE TO DATE Myocardial perfusion imaging revealing: My impression: ?1. Abnormal myocardial perfusion imaging with large sized prior infarct seen in ?apical lateral , apical inferior, inferior and apical anterior carrizales with small ?area of lobo-infarct ischemia ?2. LV systolic function is severely reduced with EF of 24% A&P Assessment and plan (1) Acute on chronic congestive heart failure: Since the patient is hemodynamically stable, I may start him on Entresto , tomorrow. Patient had a myocardial perfusion imaging yesterday. He was found to have areas of fixed severe to the small areas of reversible defect. For further evaluation of his coronary status, he requires a cardiac catheterization. Status: Acute (2) Recurrent syncope: Etiology is not clear. Possibility of high degree heart block/malignant tachyarrhythmias are considerations. Patient needs to be closely monitored on telemetry. So far there is no malignant arrhythmias on the monitor. Patient's sleep apnea may be a contributing factor. Status: Acute (3) Benign essential hypertension with target blood pressure below 140/90: Currently the blood pressure is under control. Patient may continue on the cu rrent medications. Status: Acute (4) Sarcoidosis: This may require further evaluations. Status: Acute (5) Dyslipidemia: May continue on the current medications. Status: Acute (6) Family history of premature coronary artery disease: The EKG shows possible old inferior wall VT. The patient may benefit from a cardiac catheterization to further evaluate the coronary status and decide on further management. The results of the myocardial perfusion imaging was discussed with the patient. In view of his history and the abnormal objective findings, he may benefit from a cardiac catheterization. The risk of bleeding, hematoma, vascular injury, myocardial infarction, CVA, renal failure and other concomitant complications were explained in detail. Patient understood this well and consented to pro ceed. We may consider doing this tomorrow after reviewing the lab results. Status: Acute (7) Obstructive sleep apnea: May continue on the CPAP. Status: Acute Plan We will go ahead and do a BMP and CBC in the morning. I will increase the dose of the Lasix to 40 mg every 12 hours. After reviewing the blood test results, if the labs are appropriate, we may go ahead and do a cardiac catheterization. Attestations Medical Necessity Statement*: Patient requires continued hospital stay for close monitoring and further management Coding Level of Care Code Acute Recorder Of Deeds for Chg Fwd History Expanded Problem Focused Exam Detailed Medical Decision Making Moderate Complexity Diagnoses Acute on chronic congestive heart failure I50.9 Recurrent syncope R55 Benign essential hypertension with target blood pressure below 140/90 I10 Sarcoidosis D86.9 Dyslipidemia E78.5 Family history of premature coronary artery disease Z82.49 Obstructive sleep apnea G47.33
--- NOTE | 2022-01-10 09:57 | PM.PN ---
Subjective Subjective: Patient was seen this morning, he tells me his legs feel a lot better, his shortness of breath has improved, no chest pain Vitals/I&O/Wt Last Vital Signs Temp 98 F 01/10/22 08:00 Pulse 77 01/10/22 08:00 Resp 30 H 01/10/22 08:00 BP 116/77 01/10/22 08:51 Pulse Ox 94 01/10/22 08:00 01/09/22 01/10/22 01/10/22 22:59 06:59 14:59 Intake Total 286 / 286 Output Total 480 / 2019 600 / 2620 Balance -194 / -1734 -600 / -2334 Weight last 48 hrs Weight 138.346 kg Weight 137.892 kg Physical Exam Const: COMMON NORMALS: no acute distress and patient oriented x3 Resp: COMMON NORMALS: normal respiratory effort, No retractions, No use of accessory muscles and clear to auscultation bilaterally AUSCULTATION: clear to auscultation bilaterally Cardio: COMMON NORMALS: regular rate, regular rhythm, S1 normal heart sound present and S2 normal heart sound present RATE: regular rate RHYTHM: regular rhythm HEART SOUNDS: S1 normal heart sound present and S2 normal heart sound present GI: COMMON NORMALS: Normal to inspection, nondistended, normoactive bowel sounds present, Soft to palpation and non-tender PALPATION: Yes Soft to palpation Extremity: NARRATIVE EXTREMITY EXAM: Has 1+ pitting edema bilateral extremity Neuro: COMMON NORMALS: patient oriented x3 Psych: COMMON NORMALS: mental status grossly normal Data : 01/10/22 04:20 01/10/22 04:20 Micro: Microbiology 01/08/22 18:57 Blood Culture - Preliminary Blood NEGATIVE TO DATE 01/08/22 18:53 Blood Culture - Preliminary Blood NEGATIVE TO DATE A&P Assessment and plan (1) Acute on chronic congestive heart failure: Status: Acute (2) Heart failure with reduced ejection fraction: Status: Acute (3) Left ventricular dysfunction with reduced left ventricular function: Status: Acute (4) Severe methamphetamine use disorder: Status: Acute (5) Hyperlipidemia due to dietary fat intake: Status: Acute (6) Major depressive disorder, recurrent episode, moderate with anxious distress: Status: Chronic (7) Hypertension: Status: Chronic Qualifiers: Hypertension type: essential hypertension Qualified Code(s): I10 - Essential (primary) hypertension Plan New onset CHF systolic -Acute exacerbation, fluid overload, bilateral lower extremity edema, shortness of breath Severely increased left ventricular cavity size. Decreased left ?ventricular wall thickness. Severely decreased left ventricular ?systolic function. No regional wall motion abnormalities. Grade ?III/IV diastolic dysfunction (restrictive filling pattern), ?severely elevated filling pressures. Left ventricular ejection ?fraction is estimated at 15%. ?Normal right ventricular size and systolic function. Mild ?pulmonary hypertension, RVSP 44.1 mmHg. ?Structurally normal mitral valve. Mild mitral valve ?regurgitation. ?Trivial pericardial effusion. Echocardiographic findings suggest ?a non hemodynamically significant pericardial effusion. ?There are no prior echocardiogram studies to compare. ?I called the family nurse practitioner who oversees his care. -Possibly secondary to methamphetamine abuse, but could be secondary to underlying CAD -Also severe LVH, possible hypertrophic cardiomyopathy Plan -Admit to cardiac stepdown unit Is -4 L -Decrease Lasix to 40 mg IV once daily -Potassium, mag -Fluid restriction 1000 cc -Aspirin, statin, beta-maxwell -Continue lisinopril, spironolactone Cardiac stress test shows 1. Abnormal myocardial perfusion imaging with large sized prior infarct seen in ?apical lateral , apical inferior, inferior and apical anterior carrizales with small ?area of lobo-infarct ischemia ?2. LV systolic function is severely reduced with EF of 24% -Also has sleep apnea, continue CPAP during the night -Consult cardiology -Full code -Lovenox for DVT prophylaxis Attestations Medical Necessity Statement*: Patient requires hospitalization for new onset CHF Coding Level of Care Code Acute Head Counselor for [facility] Fwd Diagnoses Acute on chronic congestive heart failure I50.9 Heart failure with reduced ejection fraction I50.20 Left ventricular dysfunction with reduced left ventricular function I51.89 Severe methamphetamine use disorder F15.20 Hyperlipidemia due to dietary fat intake E78.49 Major depressive disorder, recurrent episode, moderate with anxious distress F33.1 Hypertension I10 Hypertension type: essential hypertension
[2022-01-10] MEDS: atorvastatin 40 mg Tablet PO (20:37)
[2022-01-11] VITALS (13 sets, daily range): BP systolic 110–143; BP diastolic 74–88; PULSE 60–74; RESP 13–24; TEMP 36.3–36.8; O2SAT 93–98
[2022-01-11] MEDS: FUROsemide 10 mg/mL SDV 4mL 40 MG IVP (02:29)
--- NOTE | 2022-01-11 04:16 | PC.NURSE ---
Pt lying in bed resting with eyes closed. Pt resp even and non-labored no distress or sob noted. Pt sleeping with C-pap. Pt had no c/o pain or discomfort at the present time. No needs voiced. Call light in reach.
[2022-01-11 04:54] LABS: Basophils # 0.1 10^3/uL (0.0-0.1); Basophils % 1.2 %; Eosinophils # 0.5 10^3/uL (0.0-0.8); Eosinophils % 4.1 %; Hematocrit 46.3 % (42.0-52.0); Hemoglobin 13.5 g/dL (11.7-16.6); Lymphocytes # 2.8 10^3/uL (0.8-4.8); Lymphocytes % 24.5 %; Mean Corpuscular HGB Conc 29.2 g/dL (30.0-36.0); Mean Corpuscular Hemoglobin 23.2 pg (28.0-34.0); Mean Corpuscular Volume 79.7 fl (80-94); Mean Platelet Volume 10.5 fL (7.4-10.4); Monocytes # 1.1 10^3/uL (0.2-0.9); Monocytes % 9.9 %; Neutrophils # 6.75 10^3/uL (1.8-7.7); Nucleated Red Blood Cells % 0 %; Platelet Count 392 10^3/cmm (130-400); Red Blood Count 5.81 10^6/uL (4.1-5.3); Red Cell Distribution Width 15.5 % (12.1-15.1); White Blood Count 11.2 10^3/uL (4.0-10.0)
[2022-01-11 05:10] LABS: Alanine Aminotransferase 14 U/L (0-41); Albumin Level 3.7 g/dL (3.5-5.2); Alkaline Phosphatase 74 IU/L (40-130); Anion Gap 15.4 (5-19); Aspartate Amino Transferase 14 U/L (0-40); Blood Urea Nitrogen 33 mg/dL (6-20); Calcium 9.6 mg/dL (8.5-10.5); Carbon Dioxide 31 mmol/L (22-29); Chloride 98 mmol/L (98-107); Globulin 2.9 g/dL (1.3-4.6); Glomerular Filtration Rate 39.7 mL/min (90-130); Glucose 101 mg/dL (65-115); Magnesium 2.1 mg/dL (1.7-2.3); Osmolality Calculated 297 mOsm/kg (285-295); Phosphorus 5.7 mg/dL (2.5-4.5); Potassium 4.4 mmol/L (3.5-5.1); Sodium 140 mmol/L (136-145); Total Bilirubin 0.4 mg/dL (0.15-1.2); Total Protein 6.6 g/dL (6.6-8.7)
[2022-01-11] MEDS: potassium chloride ER 20 mEq Tablet PO (05:56)
[2022-01-11] MEDS: buPROPion XL (24 HR) 300 mg Tablet PO (05:56)
--- NOTE | 2022-01-11 08:11 | PC.NURSE ---
received bedside report from mata. pt resting comfortably on cpap. planned for cardiac cath lab manager today. assumed care of patient.
[2022-01-11] MEDS: aspirin 81 mg EC Tablet PO (08:34)
[2022-01-11] MEDS: cholecalciferol (vitamin D3) 1,000 unit Tablet 1000 UNIT PO (08:34)
[2022-01-11] MEDS: metoprolol tartrate 50 mg Tablet PO ×2 (08:34→17:37)
[2022-01-11] MEDS: losartan 50 mg Tablet PO (08:34)
[2022-01-11] MEDS: pantoprazole DR 40 mg Tablet PO (08:35)
[2022-01-11] MEDS: spironolactone 25 mg Tablet PO (09:19)
[2022-01-11] MEDS: sodium chloride 0.9% 1,000 ML 75 ML IV (11:22)
[2022-01-11] MEDS: acetaminophen 325 mg Tablet 650 MG PO (11:27)
--- NOTE | 2022-01-11 11:40 | PC.NURSE ---
dr gant notified that pts left arm is swollen and painful. iv dc'd yesterday from that side. requested ultrasound to rule out dvt. He verbalized that he did want an ultrasound and that he would order it.
--- NOTE | 2022-01-11 12:46 | PM.PN ---
Subjective Subjective: Patient was seen this morning, his edema is improving, he tells me he is feeling a lot better, no chest pain overnight, no nausea, no vomiting Vitals/I&O/Wt Last Vital Signs Temp 97.6 F 01/11/22 11:41 Pulse 68 01/11/22 11:41 Resp 18 01/11/22 11:41 BP 110/83 01/11/22 11:41 Pulse Ox 93 01/11/22 11:41 01/10/22 01/11/22 01/11/22 22:59 06:59 14:59 Intake Total 50 / 50 0 / 50 Output Total 700 / 1350 430 / 430 Balance 50 / -600 -700 / -1300 -430 / -430 Physical Exam Const: COMMON NORMALS: no acute distress and patient oriented x3 Resp: COMMON NORMALS: normal respiratory effort, No retractions, No use of accessory muscles and clear to auscultation bilaterally AUSCULTATION: clear to auscultation bilaterally Cardio: COMMON NORMALS: regular rate, regular rhythm, S1 normal heart sound present and S2 normal heart sound present RATE: regular rate RHYTHM: regular rhythm HEART SOUNDS: S1 normal heart sound present and S2 normal heart sound present GI: COMMON NORMALS: Normal to inspection, nondistended, normoactive bowel sounds present, Soft to palpation, non-tender, no masses and no bruits PALPATION: Yes Soft to palpation Extremity: NARRATIVE EXTREMITY EXAM: 1+ pitting edema bilateral extremity Neuro: COMMON NORMALS: patient oriented x3 Psych: COMMON NORMALS: mental status grossly normal Data : 01/11/22 04:43 01/11/22 04:43 A&P Assessment and plan (1) Acute on chronic congestive heart failure: Status: Acute (2) Heart failure with reduced ejection fraction: Status: Acute (3) Left ventricular dysfunction with reduced left ventricular function: Status: Acute (4) Severe methamphetamine use disorder: Status: Acute (5) Hyperlipidemia due to dietary fat intake: Status: Acute (6) Major depressive disorder, recurrent episode, moderate with anxious distress: Status: Chronic (7) Hypertension: Status: Chronic Qualifiers: Hypertension type: essential hypertension Qualified Code(s): I10 - Essential (primary) hypertension Plan New onset CHF systolic -Acute exacerbation, fluid overload, bilateral lower extremity edema, shortness of breath Severely increased left ventricular cavity size. Decreased left ?ventricular wall thickness. Severely decreased left ventricular ?systolic function. No regional wall motion abnormalities. Grade ?III/IV diastolic dysfunction (restrictive filling pattern), ?severely elevated filling pressures. Left ventricular ejection ?fraction is estimated at 15%. ?Normal right ventricular size and systolic function. Mild ?pulmonary hypertension, RVSP 44.1 mmHg. ?Structurally normal mitral valve. Mild mitral valve ?regurgitation. ?Trivial pericardial effusion. Echocardiographic findings suggest ?a non hemodynamically significant pericardial effusion. ?There are no prior echocardiogram studies to compare. ?I called the family nurse practitioner who oversees his care. -Possibly secondary to methamphetamine abuse, but could be secondary to underlying CAD -Also severe LVH, possible hypertrophic cardiomyopathy Plan -Admit to cardiac stepdown unit Is -6.5 L -Creatinine 1.9, hold Lasix -Potassium, mag -Fluid restriction 1000 cc -Aspirin, statin, beta-maxwell -Continue lisinopril, spironolactone Cardiac stress test shows 1. Abnormal myocardial perfusion imaging with large sized prior infarct seen in ?apical lateral , apical inferior, inferior and apical anterior carrizales with small ?area of lobo-infarct ischemia ?2. LV systolic function is severely reduced with EF of 24% -Also has sleep apnea, continue CPAP during the night -Consult cardiology, plans on cardiac catheterization -Full code -Lovenox for DVT prophylaxis Attestations Medical Necessity Statement*: Patient requires hospitalization for new onset CHF, positive stress test, proceeding with coronary angiography Coding Level of Care Code Acute Student Development Coordinator for Chg Fwd Diagnoses Acute on chronic congestive heart failure I50.9 Heart failure with reduced ejection fraction I50.20 Left ventricular dysfunction with reduced left ventricular function I51.89 Severe methamphetamine use disorder F15.20 Hyperlipidemia due to dietary fat intake E78.49 Major depressive disorder, recurrent episode, moderate with anxious distress F33.1 Hypertension I10 Hypertension type: essential hypertension
--- NOTE | 2022-01-11 14:40 | PC.NURSE ---
rn from [facility] came and used ultrasound to obtain iv.
--- NOTE | 2022-01-11 16:38 | PM.PN ---
Subjective Subjective: Denies any chest pain or shortness of breath. No fever or chills. No cough. Mainly complaining of left arm pain from the intraventricular conduction delay insertion site. Lower extremity swelling seems to be improving. Responding to the IV diuresis appropriately. The BUN/creatinine is going up. Medications: Medication Review Details: Current Medications Acetaminophen (Acetaminophen 325 Mg Tablet) 650 mg PO Q6H PRN PRN Reason: Mild/Mod Pain Or Temp >/= 101 Last Admin: 01/11/22 11:27 Dose: 650 mg Documented by: Aspirin (Aspirin 81 Mg Ec Tablet) 81 mg PO DAILY [facility] Last Admin: 01/11/22 08:34 Dose: 81 mg Documented by: Atorvastatin Calcium (Atorvastatin 40 Mg Tablet) 40 mg PO BEDTIME [facility] Last Admin: 01/10/22 20:37 Dose: 40 mg Documented by: Bisacodyl (Bisacodyl 5 Mg Tablet) 10 mg PO DAILY PRN; Protocol PRN Reason: Constipation (see protocol) Bupropion HCl (Bupropion Xl (24 Hr) 300 Mg Tablet) 300 mg PO QAM [facility] Last Admin: 01/11/22 05:56 Dose: 300 mg Documented by: Sodium Chloride (Sodium Chloride 0.9%) 1,000 mls @ 75 mls/hr IV .[id number] [facility] Last Admin: 01/11/22 11:22 Dose: 75 mls/hr Documented by: Losartan Potassium (Losartan 50 Mg Tablet) 50 mg PO DAILY [facility] Last Admin: 01/11/22 08:34 Dose: 50 mg Documented by: Metoprolol Tartrate (Metoprolol Tartrate 50 Mg Tablet) 50 mg PO BID [facility] Last Admin: 01/11/22 08:34 Dose: 50 mg Documented by: Ondansetron HCl (Ondansetron 2 Mg/Ml Sdv 2 Ml) 4 mg IVP Q8H PRN PRN Reason: vomiting, or N/V if npo Ondansetron HCl (Ondansetron 2 Mg/Ml Sdv 2 Ml) 4 mg IVP Q2M PRN PRN Reason: NAUSEA Last Admin: 01/09/22 07:59 Dose: 4 mg Documented by: Pantoprazole Sodium (Pantoprazole Dr 40 Mg Tablet) 40 mg PO DAILY [facility] Last Admin: 01/11/22 08:35 Dose: 40 mg Documented by: Spironolactone (Spironolactone 25 Mg Tablet) 25 mg PO DAILY [facility] Last Admin: 01/11/22 09:19 Dose: 25 mg Documented by: Vitamin D (Cholecalciferol (Vitamin D3) 1,000 Unit Tablet) 1,000 unit PO DAILY [facility] Last Admin: 01/11/22 08:34 Dose: 1,000 unit Documented by: Vitals/I&O/Wt Last Vital Signs Temp 97.4 F L 01/11/22 15:30 Pulse 72 01/11/22 15:30 Resp 24 H 01/11/22 15:30 BP 118/74 01/11/22 15:30 Pulse Ox 97 01/11/22 15:30 01/11/22 01/11/22 01/11/22 06:59 14:59 22:59 Intake Total 0 / 50 Output Total 700 / 1350 430 / 430 Balance -700 / -1300 -430 / -430 Physical Exam Narrative: GENERAL: The patient is alert and oriented times three. Not in any acute distress. HEENT: No significant pallor, icterus or lymphadenopathy. The pupils are reactant to light. Oral cavity: There are no mucous membrane lesions. NECK: Trachea appears to be central. No masses noted. RESPIRATORY: Chest is symmetrical. No intercostals muscle retraction or any accessory muscle activation. There is no chest wall tenderness. Breath sounds are heard bilaterally. No rales or rhonchi heard. No evidence of any consolidation. BREASTS: Deferred. HEART: The PMI could not be palpated. No other palpable precordial events. No palpable precordial events. S1 and S2 are normal. No S3 or S4 heard. No pericardial rub or any click heard. Short systolic murmur in the left sternal border. No diastolic murmurs. ABDOMEN: No vessel pulsations or distention. No tenderness. No organomegaly appreciated. No abdominal bruit. Bowel sounds are normally heard. : Deferred. RECTAL: Deferred. LYMPHATIC: No lymphadenopathy noted in the neck or groin. EXTREMITIES: 1+ edema both lower extremities. MUSCULOSKELETAL: No acute joint deformities or swelling. SKIN: Generalized skin rashes in the upper extremities and the trunk. Healed/healing blisters in the lower extremities NEUROPSYCHIATRIC: The patient is alert and oriented x3. Appears to be in a good mood. The higher functions are grossly within normal limits. No tremors or rigidity noted. Data : 05/08/22 04:43 01/11/22 04:43 A&P Assessment and plan (1) Acute kidney injury superimposed on chronic kidney disease: The patient's albumin creatinine is going up. At this point, it may appropriate to cut back on the furosemide. He will be carefully hydrated. A repeat BMP will be performed in the morning. If it is acceptable, we may go ahead with the cardiac catheterization. Status: Acute (2) Acute on chronic congestive heart failure: Since the patient is hemodynamically stable, I may start him on Entresto , tomorrow. Patient had a myocardial perfusion imaging yesterday. He was found to have areas of fixed severe to the small areas of reversible defect. For further evaluation of his coronary status, he requires a cardiac catheterization. We they are planning to have the angiogram done today. Because of the increasing BUN and creatinine levels, there was thought to be appropriate to postpone this. We may consider doing the procedure sometime tomorrow. Status: Acute (3) Recurrent syncope: Etiology is not clear. Possibility of high degree heart block/malignant tachyarrhythmias are considerations. Patient needs to be closely monitored on telemetry. So far there is no malignant arrhythmias on the monitor. Patient's sleep apnea may be a contributing factor. Apparently he has not had any recurrence of these syncopal or near syncopal episodes since he was placed on CPAP in the hospital. Status: Acute (4) Benign essential hypertension with target blood pressure below 140/90: Currently the blood pressure is under control. Patient may continue on the current medications. Status: Acute (5) Sarcoidosis: This may require further evaluations. Status: Acute (6) Dyslipidemia: May continue on the current medications. Status: Acute (7) Family history of premature coronary artery disease: The EKG shows possible old inferior wall [place]. The results of the myocardial perfusion imaging was discussed with the patient. In view of his presenting history and the abnormal objective findings, he may benefit from a cardiac catheterization. The risk of bleeding, hematoma, vascular injury, myocardial infarction, CVA, renal failure and other concomitant complications were explained in detail. Patient understood this well and consented to proceed. After reviewing the BMP in the morning, will make the decision on the angiogram. Status: Acute (8) Obstructive sleep apnea: May continue on the CPAP. Patient requires a sleep study as an outpatient Status: Acute Plan Based on the patient's clinical progress and the results of the above, further management decisions will be made. Attestations Medical Necessity Statement*: Patient requires continued hospital stay for close monitoring and further management Coding Level of Care Code Acute Human Resources Team Member for Chg Fwd History Expanded Problem Focused Exam Detailed Medical Decision Making Moderate Complexity Diagnoses Acute on chronic congestive heart failure I50.9 Recurrent syncope R55 Benign essential hypertension with target blood pressure below 140/90 I10 Sarcoidosis D86.9 Dyslipidemia E78.5 Family history of premature coronary artery disease Z82.49 Obstructive sleep apnea G47.33 Acute kidney injury superimposed on chronic kidney disease N17.9; N18.9
[2022-01-11] MEDS: atorvastatin 40 mg Tablet PO (21:13)
[2022-01-12] VITALS (12 sets, daily range): BP systolic 114–132; BP diastolic 82–92; PULSE 67–79; RESP 16–22; TEMP 36.4–36.8; O2SAT 92–100
--- NOTE | 2022-01-12 00:28 | PC.NURSE ---
Pt sitting up i bed talking to staff. Pt resp even and non-labored no distress or sob noted. Pt had no c/o pain or discomfort at the present time. Pt education was given on remaining npo for cath procedure. Pt verbalized understanding. No needs voiced. Call light in reach. Will cont to monitor.
[2022-01-12] MEDS: sodium chloride 0.9% 1,000 ML 75 ML IV ×2 (00:48→14:07)
[2022-01-12 05:42] LABS: Basophils # 0.1 10^3/uL (0.0-0.1); Basophils % 1.2 %; Eosinophils # 0.6 10^3/uL (0.0-0.8); Eosinophils % 5.8 %; Hematocrit 43.4 % (42.0-52.0); Hemoglobin 12.8 g/dL (11.7-16.6); Lymphocytes % 21.2 %; Mean Corpuscular HGB Conc 29.5 g/dL (30.0-36.0); Mean Corpuscular Hemoglobin 23.5 pg (28.0-34.0); Mean Corpuscular Volume 79.8 fl (80-94); Mean Platelet Volume 10.9 fL (7.4-10.4); Neutrophils # 5.85 10^3/uL (1.8-7.7); Neutrophils % 61.5 %; Nucleated Red Blood Cells % 0 %; Platelet Count 393 10^3/cmm (130-400); Red Blood Count 5.44 10^6/uL (4.1-5.3); Red Cell Distribution Width 15.6 % (12.1-15.1); White Blood Count 9.5 10^3/uL (4.0-10.0)
[2022-01-12 06:03] LABS: Alanine Aminotransferase 14 U/L (0-41); Albumin Level 3.4 g/dL (3.5-5.2); Alkaline Phosphatase 73 IU/L (40-130); Anion Gap 13.5 (5-19); Aspartate Amino Transferase 17 U/L (0-40); Blood Urea Nitrogen 29 mg/dL (6-20); Carbon Dioxide 30 mmol/L (22-29); Chloride 103 mmol/L (98-107); Globulin 3.2 g/dL (1.3-4.6); Glomerular Filtration Rate 56.4 mL/min (90-130); Glucose 107 mg/dL (65-115); Magnesium 2.1 mg/dL (1.7-2.3); Osmolality Calculated 300 mOsm/kg (285-295); Phosphorus 4.5 mg/dL (2.5-4.5); Potassium 4.5 mmol/L (3.5-5.1); Sodium 142 mmol/L (136-145); Total Bilirubin 0.4 mg/dL (0.15-1.2); Total Protein 6.6 g/dL (6.6-8.7)
[2022-01-12] MEDS: buPROPion XL (24 HR) 300 mg Tablet PO (06:20)
[2022-01-12] MEDS: aspirin 81 mg EC Tablet PO (09:12)
[2022-01-12] MEDS: cholecalciferol (vitamin D3) 1,000 unit Tablet 1000 UNIT PO (09:12)
[2022-01-12] MEDS: pantoprazole DR 40 mg Tablet PO (09:12)
[2022-01-12] MEDS: losartan 50 mg Tablet PO (09:12)
[2022-01-12] MEDS: metoprolol tartrate 50 mg Tablet PO ×2 (09:12→17:28)
[2022-01-12] MEDS: spironolactone 25 mg Tablet PO (09:13)
--- NOTE | 2022-01-12 09:25 | PM.PN ---
Subjective Subjective: Patient is feeling okay. He has some difficulty in sleeping because of the CPAP. He still getting adjusted to it. Denies any chest pain. No unusual shortness of breath. He complains of some pain and swelling of the left upper extremity at the IV site. Medications: Medication Review Details: Current Medications Acetaminophen (Acetaminophen 325 Mg Tablet) 650 mg PO Q6H PRN PRN Reason: Mild/Mod Pain Or Temp >/= 101 Last Admin: 01/11/22 11:27 Dose: 650 mg Documented by: Aspirin (Aspirin 81 Mg Ec Tablet) 81 mg PO DAILY [facility] Last Admin: 01/12/22 09:12 Dose: 81 mg Documented by: Atorvastatin Calcium (Atorvastatin 40 Mg Tablet) 40 mg PO BEDTIME [facility] Last Admin: 01/11/22 21:13 Dose: 40 mg Documented by: Bisacodyl (Bisacodyl 5 Mg Tablet) 10 mg PO DAILY PRN; Protocol PRN Reason: Constipation (see protocol) Bupropion HCl (Bupropion Xl (24 Hr) 300 Mg Tablet) 300 mg PO QAM [facility] Last Admin: 01/12/22 06:20 Dose: 300 mg Documented by: Enoxaparin Sodium (Enoxaparin 40 Mg/0.4 Ml Syringe) 40 mg SUBCUT Q24H [facility] Sodium Chloride (Sodium Chloride 0.9%) 1,000 mls @ 75 mls/hr IV .[id number] [facility] Last Admin: 01/12/22 00:48 Dose: 75 mls/hr Documented by: Metoprolol Tartrate (Metoprolol Tartrate 50 Mg Tablet) 50 mg PO BID [facility] Last Admin: 01/12/22 09:12 Dose: 50 mg Documented by: Ondansetron HCl (Ondansetron 2 Mg/Ml Sdv 2 Ml) 4 mg IVP Q8H PRN PRN Reason: vomiting, or N/V if npo Ondansetron HCl (Ondansetron 2 Mg/Ml Sdv 2 Ml) 4 mg IVP Q2M PRN PRN Reason: NAUSEA Last Admin: 01/09/22 07:59 Dose: 4 mg Documented by: Pantoprazole Sodium (Pantoprazole Dr 40 Mg Tablet) 40 mg PO DAILY [facility] Last Admin: 01/12/22 09:12 Dose: 40 mg Documented by: Sacubitril/Valsartan (Sacubitril/Valsartan 24-26 Mg Tablet) 1 each PO BID [facility] Spironolactone (Spironolactone 25 Mg Tablet) 25 mg PO DAILY [facility] Last Admin: 01/12/22 09:13 Dose: 25 mg Documented by: Vitamin D (Cholecalciferol (Vitamin D3) 1,000 Unit Tablet) 1,000 unit PO DAILY [facility] Last Admin: 01/12/22 09:12 Dose: 1,000 unit Documented by: Vitals/I&O/Wt Last Vital Signs Temp 98.1 F 01/12/22 07:10 Pulse 73 01/12/22 07:33 Resp 18 01/12/22 07:10 BP 114/90 01/12/22 09:12 Pulse Ox 96 01/12/22 07:33 01/11/22 01/12/22 01/12/22 22:59 06:59 14:59 Intake Total 240 / 240 1000 / 1240 Output Total 300 / 730 525 / 1255 450 / 450 Balance -60 / -490 475 / -15 -450 / -450 Physical Exam Narrative: GENERAL: The patient is alert and oriented times three. Not in any acute distress. HEENT: No significant pallor, icterus or lymphadenopathy. The pupils are reactant to light. Oral cavity: There are no mucous membrane lesions. NECK: Trachea appears to be central. No masses noted. RESPIRATORY: Chest is symmetrical. No intercostals muscle retraction or any accessory muscle activation. There is no chest wall tenderness. Breath sounds are heard bilaterally. No rales or rhonchi heard. No evidence of any consolidation. BREASTS: Deferred. HEART: The PMI could not be palpated. No other palpable precordial events. No palpable precordial events. S1 and S2 are normal. No S3 or S4 heard. No pericardial rub or any click heard. Short systolic murmur in the left sternal border. No diastolic murmurs. ABDOMEN: No vessel pulsations or distention. No tenderness. No organomegaly appreciated. No abdominal bruit. Bowel sounds are normally heard. : Deferred. RECTAL: Deferred. LYMPHATIC: No lymphadenopathy noted in the neck or groin. EXTREMITIES: 1+ edema both lower extremities. Minimal swelling and diffuse tenderness in the left upper extremity around the elbow. MUSCULOSKELETAL: No acute joint deformities or swelling. SKIN: Generalized skin rashes in the upper extremities and the trunk. Healed/healing blisters in the lower extremities NEUROPSYCHIATRIC: The patient is alert and oriented x3. Appears to be in a good mood. The higher functions are grossly within normal limits. No tremors or rigidity noted. Data : 01/13/22 02:09 01/13/22 02:09 Other Labs: Laboratory Last Values WBC 9.5 10^3/uL (4.0-10.0) 01/12/22 04:53 RBC 5.44 10^6/uL (4.1-5.3) H 01/12/22 04:53 Hgb 12.8 g/dL (11.7-16.6) 01/12/22 04:53 Hct 43.4 % (42.0-52.0) 01/12/22 04:53 MCV 79.8 fl (80-94) L 01/12/22 04:53 MCH 23.5 pg (28.0-34.0) L 01/12/22 04:53 MCHC 29.5 g/dL (30.0-36.0) L 01/12/22 04:53 RDW 15.6 % (12.1-15.1) H 01/12/22 04:53 Plt Count 393 10^3/cmm (130-400) 01/12/22 04:53 MPV 10.9 fL (7.4-10.4) H 01/12/22 04:53 Neut % (Auto) 61.5 % 01/12/22 04:53 Lymph % (Auto) 21.2 % 01/12/22 04:53 [place] % (Auto) 10.0 % 01/12/22 04:53 Eos % (Auto) 5.8 % 01/12/22 04:53 Baso % (Auto) 1.2 % 01/12/22 04:53 Neut # (Auto) 5.85 10^3/uL (1.8-7.7) 01/12/22 04:53 Lymph # (Auto) 2.0 10^3/uL (0.8-4.8) 01/12/22 04:53 [place] # (Auto) 1.0 10^3/uL (0.2-0.9) H 01/12/22 04:53 Eos # (Auto) 0.6 10^3/uL (0.0-0.8) 01/12/22 04:53 Baso # (Auto) 0.1 10^3/uL (0.0-0.1) 01/12/22 04:53 Nucleated RBC % (auto) 0 % 01/12/22 04:53 Nucleated RBCs # 0.0 /100WBC 01/12/22 04:53 ESR 7 mm/hr (0-10) 01/08/22 15:01 Sodium 142 mmol/L (136-145) 01/12/22 04:53 Potassium 4.5 mmol/L (3.5-5.1) 01/12/22 04:53 Chloride 103 mmol/L (98-107) 01/12/22 04:53 Carbon Dioxide 30 mmol/L (22-29) H 01/12/22 04:53 Anion Gap 13.5 (5-19) 01/12/22 04:53 BUN 29 mg/dL (6-20) H 01/12/22 04:53 Creatinine 1.4 mg/dL (0.7-1.2) H 01/12/22 04:53 GFR Calculation 56.4 mL/min (90-130) L 01/12/22 04:53 Glucose 107 mg/dL (65-115) 01/12/22 04:53 Estimat Average Glucose 131 01/09/22 10:00 Hemoglobin A1c 6.2 % (4.0-6.0) H 01/09/22 10:00 Calculated Osmolality 300 mOsm/kg (285-295) H 01/12/22 04:53 Calcium 9.0 mg/dL (8.5-10.5) 01/12/22 04:53 Phosphorus 4.5 mg/dL (2.5-4.5) 01/12/22 04:53 Magnesium 2.1 mg/dL (1.7-2.3) 01/12/22 04:53 Total Bilirubin 0.4 mg/dL (0.15-1.2) 01/12/22 04:53 AST 17 U/L (0-40) 01/12/22 04:53 ALT 14 U/L (0-41) 01/12/22 04:53 Alkaline Phosphatase 73 IU/L (40-130) 01/12/22 04:53 Troponin T Gen 5 ng/L 32 ng/L (0-15) H 01/08/22 15:01 C-Reactive Protein 16.2 mg/L (0.0-4.9) H 01/08/22 15:01 NT-Pro-B Natriuret Pep 2710 pg/mL (0-125) H 01/09/22 10:00 Total Protein 6.6 g/dL (6.6-8.7) 01/12/22 04:53 Albumin 3.4 g/dL (3.5-5.2) L 01/12/22 04:53 Globulin 3.2 g/dL (1.3-4.6) 01/12/22 04:53 Triglycerides 95 mg/dL (0-150) 01/09/22 10:00 Cholesterol 135 mg/dL (0-200) 01/09/22 10:00 LDL Cholesterol, Calc 88 mg/dL (50-129) 01/09/22 10:00 HDL Cholesterol 28 mg/dL (60-100) L 01/09/22 10:00 LDL/HDL Ratio 3.14 RATIO (0.00-3.22) 01/09/22 10:00 Cholesterol/HDL Ratio 4.82 mg/dL (1.0-5.00) 01/09/22 10:00 Procalcitonin 0.04 ng/mL (0-0.5) 01/08/22 15:01 TSH 2.15 uIU/mL (0.27-4.20) 01/09/22 10:00 Urine Opiates Screen Negative ng/mL (Negative) 01/08/22 17:43 Ur Barbiturates Screen Negative ng/mL (Negative) 01/08/22 17:43 Ur Phencyclidine Scrn Negative ng/mL (Negative) 01/08/22 17:43 Ur Amphetamines Screen Negative ng/mL (Negative) 01/08/22 17:43 U Benzodiazepines Scrn Negative ng/mL (Negative) 01/08/22 17:43 Urine Cocaine Screen Negative ng/mL (Negative) 01/08/22 17:43 U Marijuana (THC) Screen Negative ng/mL (Negative) 01/08/22 17:43 A&P Assessment and plan (1) Acute kidney injury superimposed on chronic kidney disease: The patient's albumin creatinine is going up. At this point, it may appropriate to cut back on the furosemide. He will be carefully hydrated. A repeat BMP will be performed in the morning. If it is acceptable, we may go ahead with the cardiac catheterization. Status: Acute (2) Left arm pain: Possibility of venous thrombosis causing the left arm pain and swelling is a consideration. We may go ahead and do a venous duplex of the left upper extremity and then decide on further management Status: Acute (3) Acute on chronic congestive heart failure: Since the patient is hemodynamically stable, I may start him on Entresto , tomorrow. Patient had a myocardial perfusion imaging yesterday. He was found to have areas of fixed severe to the small areas of reversible defect. For further evaluation of his coronary status, he requires a cardiac catheterization. Since the BUN/creatinine is coming down, we may go ahead and do the cardiac catheterization this evening. I also may go ahead and start him on Entresto 24/ twice daily Patient was on subcu Lovenox for DVT prophylaxis. For some reason, it was discontinued. I may go ahead and restart it today. Status: Acute (4) Recurrent syncope: Etiology is not clear. Possibility of high degree heart block/malignant tachyarrhythmias are considerations. Patient needs to be closely monitored on telemetry. So far there is no malignant arrhythmias on the monitor. Patient's sleep apnea may be a contributing factor. Apparently he has not had any recurrence of these syncopal or near syncopal episodes since he was placed on CPAP in the hospital. Status: Acute (5) Benign essential hypertension with target blood pressure below 140/90: Currently the blood pressure is under control. Patient may continue on the current medications. Status: Acute (6) Sarcoidosis: This may require further evaluations. Status: Acute (7) Dyslipidemia: May continue on the current medications. Status: Acute (8) Family history of premature coronary artery disease: The EKG shows possible old inferior wall [place]. The results of the myocardial perfusion imaging was discussed with the patient. In view of his presenting history and the abnormal objective findings, he may benefit from a cardiac catheterization. The risk of bleeding, hematoma, vascular injury, myocardial infarction, CVA, renal failure and other concomitant complications were explained in detail. Patient understood this well and consented to proceed. He carries a high risk for contrast-induced nephropathy in view of the abnormal kidney function. This was explained to the patient detail which is understood well Status: Acute (9) Obstructive sleep apnea: May continue on the CPAP. Patient requires a sleep study as an outpatient Status: Acute Plan Based on the patient's clinical progress and the results of the above, further management decisions will be made. If he has any acute DVT, we may to hold off on the angiogram today Attestations Medical Necessity Statement*: Patient requires continued hospital stay for close monitoring and further management Coding Level of Care Code Acute Sample Coordinator for Chg Fwd History Expanded Problem Focused Exam Detailed Medical Decision Making Moderate Complexity Diagnoses Acute kidney injury superimposed on chronic kidney disease N17.9; N18.9 Acute on chronic congestive heart failure I50.9 Recurrent syncope R55 Benign essential hypertension with target blood pressure below 140/90 I10 Sarcoidosis D86.9 Dyslipidemia E78.5 Family history of premature coronary artery disease Z82.49 Obstructive sleep apnea G47.33 Left arm pain M79.602
--- NOTE | 2022-01-12 09:26 | USCV_ITS ---
Tenzin Jones Age: 41 Gender: M : 1980 Exam Date: 01/12/2022 10:18 Ordering Phys: Jg Morin MD ([email or web address]) Technologist: Gilmar Ernandez [place]am Location[place] [facility] [place]: pedal edema HISTORY: Lower extremity swelling. PROCEDURES: The venous duplex Doppler examination of both lower extremities was performed in the standard fashion. The following venous structures were evaluated: common femoral vein, profunda vein, proximal portion of the greater saphenous vein, superficial femoral vein, and the popliteal vein. In addition, the posterior tibial and peroneal trunk were evaluated. Bilaterally, the common femoral, superficial femoral, profunda femoral, popliteal, posterior tibial, greater saphenous veins, and the peroneal trunk were identified and interrogated in the standard fashion. These veins were found to be easily compressible with spontaneous blood flow. No evidence of insufficiency or thrombus noted. FINDINGS: Normal 2-D Doppler and augmentation and compressibility throughout the lower extremity venous structures. Additional imaging through the proximal calf veins also reveals no thrombus. Limited evaluation of the greater saphenous vein is patent with no thrombus.. The veins were found to be easily compressible with spontaneous blood flow. Non pulsatile flow pattern. CONCLUSIONS No evidence of DVT in the above-mentioned identifiable veins. Dr Jg Morin MD [facility] (Electronically Signed) Final Date: 12 Jan 2022 21:29 S
--- NOTE | 2022-01-12 09:38 | USCV_ITS ---
Tenzin Jones Age: 41 Gender: M : 1980 Exam Date: 01/12/2022 10:27 Ordering Phys: Jg Morin MD ([email or web address]) Technologist: Gilmar Ernandez Exam Location: [facility] [place] Indication: lt arm iv extravisation lt arm swelling PROCEDURES: Venous duplex imaging was performed in bilateral upper extremities. The following venous structures were evaluated: internal jugular vein, subclavian vein, axillary vein, and brachial veins. In addition, the basilic vein, cephalic vein, radial vein, and ulnar vein. FINDINGS: THERE IS [place] IN THE LT AXILLARY AND LT BRACHIAL ALL OTHER VEINS ARE NORMAL Echogenic material within the lumen of the axillary and brachial veins on the left side. These veins were found to be noncompressible. CONCLUSIONS Features of deep vein thrombosis involving the left axillary and brachial vein causing near total occlusion. All the other venous segments were found to be easily compressible with spontaneous flow Dr Jg Morin MD [facility] (Electronically Signed) Final Date: 12 Jan 2022 13:09 S
[2022-01-12] MEDS: enoxaparin 40 mg/0.4 mL Syringe SUBCUT (10:30)
[2022-01-12 12:53] LABS: Anion Gap 13.5 (5-19); Blood Urea Nitrogen 29 mg/dL (6-20); Calcium 9.3 mg/dL (8.5-10.5); Carbon Dioxide 30 mmol/L (22-29); Chloride 104 mmol/L (98-107); Glomerular Filtration Rate 56.4 mL/min (90-130); Glucose 135 mg/dL (65-115); Osmolality Calculated 304 mOsm/kg (285-295); Potassium 4.5 mmol/L (3.5-5.1); Sodium 143 mmol/L (136-145)
[2022-01-12] MEDS: heparin drip 25,000 UNIT/500 ML PREMIX 36 UNIT IV (13:56)
[2022-01-12] MEDS: sacubitril/valsartan 24-26 mg Tablet 1 EACH PO (17:28)
--- NOTE | 2022-01-12 18:14 | P.PN_ITS ---
Subjective Subjective: Denies chest pain or pressure. Leg and groin as well as lower abdominal edema has been decreasing. Vitals/I&O/Wt Last Vital Signs Temp 97.6 F 01/12/22 15:46 Pulse 74 01/12/22 15:46 Resp 22 H 01/12/22 15:46 BP 119/87 01/12/22 15:46 Pulse Ox 97 01/12/22 15:46 01/12/22 01/12/22 01/12/22 06:59 14:59 22:59 Intake Total 1000 / 1240 998.75 / 998.75 1170 / 2168.75 Output Total 525 / 1255 1030 / 1030 250 / 1280 Balance 475 / -15 -31.25 / -31.25 920 / 888.75 Physical Exam Const: COMMON NORMALS: alert GENERAL APPEARANCE: cooperative NUTRITIONAL APPEARANCE: obese ORIENTATION/CONSCIOUSNESS: Yes awake HENMT: COMMON NORMALS: normocephalic, EAC's normal, Normal external nose present and moist oral mucous membranes HEAD & SCALP: normocephalic NOSE: Normal external nose present EXTERNAL AUDITORY CANAL: EAC's normal Neck/C-Spine: COMMON NORMALS: no meningeal signs Chest: CHEST: Yes Symmetrical chest wall rise Resp: COMMON NORMALS: clear to auscultation bilaterally AUSCULTATION: clear to auscultation bilaterally Cardio: COMMON NORMALS: regular rate, regular rhythm and No murmurs present ( Cardio) RATE: regular rate RHYTHM: regular rhythm GI: COMMON NORMALS: Normal to inspection, nondistended, normoactive bowel sounds present, Soft to palpation and non-tender PALPATION: Yes Soft to palpation Extremity: GENERAL: Yes edema (2+ LE, lower abdomen) Neuro: COMMON NORMALS: moves all extremities SENSORIUM/ORIENTATION: Yes alert MENINGEAL SIGNS: Yes no meningeal signs Psych: COMMON NORMALS: mental status grossly normal Skin: COMMON NORMALS: no wounds RASHES: no rashes OTHER: Healed maculopapular hyperpigmented lesions over most of the body Data : 01/12/22 04:53 01/12/22 12:24 A&P Assessment and plan (1) Acute on chronic congestive heart failure: Pending additional assessment with coronary angiography, but with finding of DVT in both upper extremity, test for now delayed. He is started on anticoagulation. Diffuse edema of lower extremities, lower abdomen has been improving. Currently he is off IV diuretic, receiving gentle hydration in anticipation of coronary angiogram. With history of sarcoidosis: Schedule follow-up with specialist. Started on Entresto. Status: Acute (2) Heart failure with reduced ejection fraction: Severely increased left ventricular cavity size. Decreased left ?ventricular wall thickness. Severely decreased left ventricular ?systolic function. No regional wall motion abnormalities. Grade ?III/IV diastolic dysfunction (restrictive filling pattern), ?severely elevated filling pressures. Left ventricular ejection ?fraction is estimated at 15%. ?Normal right ventricular size and systolic function. Mild ?pulmonary hypertension, RVSP 44.1 mmHg. ?Structurally normal mitral valve. Mild mitral valve ?regurgitation. ?Trivial pericardial effusion. Echocardiographic findings suggest ?a non hemodynamically significant pericardial effusion. ?There are no prior echocardiogram studies to compare. Status: Acute (3) Left ventricular dysfunction with reduced left ventricular function: Status: Acute (4) DVT (deep venous thrombosis): LUE Heparin drip Status: Acute (5) Severe methamphetamine use disorder: Status: Acute (6) Hyperlipidemia due to dietary fat intake: Status: Acute (7) Major depressive disorder, recurrent episode, moderate with anxious distress: Status: Chronic (8) Hypertension: Status: Chronic Qualifiers: Hypertension type: essential hypertension Qualified Code(s): I10 - E ssential (primary) hypertension Plan Also has sleep apnea, continue CPAP during the night Recurrent syncope: Unclear etiology, but possible tachyarrhythmia in setting of HFrEF, less than 30% EF. Pending additional assessment. Attestations Medical Necessity Statement*: Evaluation for sleep management of new HFrEF, DVT Coding Level of Care Code Acute Talent Sourcing Specialist for Chg Fwd Diagnoses Acute on chronic congestive heart failure I50.9 Heart failure with reduced ejection fraction I50.20 Left ventricular dysfunction with reduced left ventricular function I51.89 Severe methamphetamine use disorder F15.20 Hyperlipidemia due to dietary fat intake E78.49 Major depressive disorder, recurrent episode, moderate with anxious distress F33.1 Hypertension I10 Hypertension type: essential hypertension DVT (deep venous thrombosis) I82.409
[2022-01-12 19:44] LABS: Partial Thromboplastin Time 76.9 SECONDS (23.9-36.7)
[2022-01-12] MEDS: atorvastatin 40 mg Tablet PO (19:51)
[2022-01-13] VITALS (14 sets, daily range): BP systolic 116–150; BP diastolic 70–105; PULSE 51–89; RESP 14–24; TEMP 36.6–37; O2SAT 95–99
[2022-01-13] MEDS: heparin drip 25,000 UNIT/500 ML PREMIX 33 UNIT IV (02:02)
[2022-01-13] MEDS: sodium chloride 0.9% 1,000 ML 75 ML IV (02:03)
[2022-01-13 02:43] LABS: Basophils # 0.1 10^3/uL (0.0-0.1); Basophils % 1.1 %; Eosinophils # 0.4 10^3/uL (0.0-0.8); Eosinophils % 4.3 %; Hematocrit 44.2 % (42.0-52.0); Hemoglobin 12.8 g/dL (11.7-16.6); Lymphocytes # 2.3 10^3/uL (0.8-4.8); Lymphocytes % 24.1 %; Mean Corpuscular Hemoglobin 23.4 pg (28.0-34.0); Monocytes # 1.1 10^3/uL (0.2-0.9); Monocytes % 11.5 %; Neutrophils # 5.54 10^3/uL (1.8-7.7); Neutrophils % 58.7 %; Nucleated Red Blood Cells % 0 %; Platelet Count 361 10^3/cmm (130-400); Red Blood Count 5.46 10^6/uL (4.1-5.3); Red Cell Distribution Width 15.7 % (12.1-15.1); White Blood Count 9.4 10^3/uL (4.0-10.0)
[2022-01-13 02:51] LABS: Partial Thromboplastin Time 55.8 SECONDS (23.9-36.7)
[2022-01-13 03:19] LABS: Alanine Aminotransferase 17 U/L (0-41); Albumin Level 3.4 g/dL (3.5-5.2); Alkaline Phosphatase 68 IU/L (40-130); Anion Gap 16.3 (5-19); Aspartate Amino Transferase 19 U/L (0-40); Blood Urea Nitrogen 27 mg/dL (6-20); Calcium 9.2 mg/dL (8.5-10.5); Carbon Dioxide 26 mmol/L (22-29); Chloride 104 mmol/L (98-107); Globulin 3.4 g/dL (1.3-4.6); Glomerular Filtration Rate 61.5 mL/min (90-130); Glucose 92 mg/dL (65-115); Magnesium 1.9 mg/dL (1.7-2.3); Osmolality Calculated 299 mOsm/kg (285-295); Phosphorus 4.1 mg/dL (2.5-4.5); Potassium 4.3 mmol/L (3.5-5.1); Sodium 142 mmol/L (136-145); Total Bilirubin 0.4 mg/dL (0.15-1.2); Total Protein 6.8 g/dL (6.6-8.7)
[2022-01-13] MEDS: buPROPion XL (24 HR) 300 mg Tablet PO (06:14)
--- NOTE | 2022-01-13 07:59 | PM.PN ---
Subjective Subjective: Patient is feeling better. He has no chest pain or unusual shortness of breath. Still has left arm pain. He is getting the IV heparin. The left arm swelling is improving. He has some dry cough and chest tightness today, somewhat similar to the symptoms that he came in with. Medications: Medication Review Details: Current Medications Acetaminophen (Acetaminophen 325 Mg Tablet) 650 mg PO Q6H PRN PRN Reason: Mild/Mod Pain Or Temp >/= 101 Last Admin: 01/11/22 11:27 Dose: 650 mg Documented by: Aspirin (Aspirin 81 Mg Ec Tablet) 81 mg PO DAILY [facility] Last Admin: 01/12/22 09:12 Dose: 81 mg Documented by: Atorvastatin Calcium (Atorvastatin 40 Mg Tablet) 40 mg PO BEDTIME [facility] Last Admin: 01/12/22 19:51 Dose: 40 mg Documented by: Bisacodyl (Bisacodyl 5 Mg Tablet) 10 mg PO DAILY PRN; Protocol PRN Reason: Constipation (see protocol) Bupropion HCl (Bupropion Xl (24 Hr) 300 Mg Tablet) 300 mg PO QAM [facility] Last Admin: 01/13/22 06:14 Dose: 300 mg Documented by: Heparin Sodium (Porcine) (Heparin 5,000 Unit/Ml Inj 1 Ml) 0 unit IV PRN PRN; Protocol PRN Reason: Heparin weight-base protocol Sodium Chloride (Sodium Chloride 0.9%) 1,000 mls @ 75 mls/hr IV .[id number] [facility] Last Admin: 01/13/22 02:03 Dose: 75 mls/hr Documented by: Heparin Sodium/Sodium Chloride (Heparin Drip) 25,000 unit in 500 mls @ 0 mls/hr IV .Q0M [facility]; Protocol Last Titration: 01/13/22 03:05 Dose: 11.93 unit/kg/hr, 33 mls/hr Documented by: Metoprolol Tartrate (Metoprolol Tartrate 50 Mg Tablet) 50 mg PO BID [facility] Last Admin: 01/12/22 17:28 Dose: 50 mg Documented by: Ondansetron HCl (Ondansetron 2 Mg/Ml Sdv 2 Ml) 4 mg IVP Q8H PRN PRN Reason: vomiting, or N/V if npo Ondansetron HCl (Ondansetron 2 Mg/Ml Sdv 2 Ml) 4 mg IVP Q2M PRN PRN Reason: NAUSEA Last Admin: 01/09/22 07:59 Dose: 4 mg Documented by: Pantoprazole Sodium (Pantoprazole Dr 40 Mg Tablet) 40 mg PO DAILY [facility] Last Admin: 01/12/22 09:12 Dose: 40 mg Documented by: Sacubitril/Valsartan (Sacubitril/Valsartan 24-26 Mg Tablet) 1 each PO BID [facility] Last Admin: 01/12/22 17:28 Dose: 1 each Documented by: Spironolactone (Spironolactone 25 Mg Tablet) 25 mg PO DAILY [facility] Last Admin: 01/12/22 09:13 Dose: 25 mg Documented by: Vitamin D (Cholecalciferol (Vitamin D3) 1,000 Unit Tablet) 1,000 unit PO DAILY [facility] Last Admin: 01/12/22 09:12 Dose: 1,000 unit Documented by: Vitals/I&O/Wt Last Vital Signs Temp 98.5 F 01/13/22 03:39 Pulse 77 01/13/22 04:28 Resp 14 01/13/22 03:39 BP 126/87 01/13/22 03:39 Pulse Ox 96 01/13/22 04:01 01/12/22 01/13/22 01/13/22 22:59 06:59 14:59 Intake Total 1621.8 / 2620.55 1837.85 / 4458.40 Output Total 1000 / 2030 1150 / 3180 Balance 621.8 / 590.55 687.85 / 1278.40 Physical Exam Narrative: GENERAL: The patient is alert and oriented times three. Not in any acute distress. HEENT: No significant pallor, icterus or lymphadenopathy. The pupils are reactant to light. Oral cavity: There are no mucous membrane lesions. NECK: Trachea appears to be central. No masses noted. RESPIRATORY: Chest is symmetrical. No intercostals muscle retraction or any accessory muscle activation. There is no chest wall tenderness. Breath sounds are heard bilaterally. No rales or rhonchi heard. No evidence of any consolidation. BREASTS: Deferred. HEART: The PMI could not be palpated. No other palpable precordial events. No palpable precordial events. S1 and S2 are normal. No S3 or S4 heard. No pericardial rub or any click heard. Short systolic murmur in the left sternal border. No diastolic murmurs. ABDOMEN: No vessel pulsations or distention. No tenderness. No organomegaly appreciated. No abdominal bruit. Bowel sounds are normally heard. : Deferred. RECTAL: Deferred. LYMPHATIC: No lymphadenopathy noted in the neck or groin. EXTREMITIES: 1+ edema both lower extremities. Minimal tenderness in the left arm around the elbow MUSCULOSKELETAL: No acute joint deformities or swelling. SKIN: Generalized skin rashes in the upper extremities and the trunk. Healed/healing blisters in the lower extremities NEUROPSYCHIATRIC: The patient is alert and oriented x3. Appears to be in a good mood. The higher functions are grossly within normal limits. No tremors or rigidity noted. Data : 01/13/22 02:09 01/13/22 02:09 Other Labs: Laboratory Last Values WBC 9.4 10^3/uL (4.0-10.0) 01/13/22 02:09 RBC 5.46 10^6/uL (4.1-5.3) H 01/13/22 02:09 Hgb 12.8 g/dL (11.7-16.6) 01/13/22 02:09 Hct 44.2 % (42.0-52.0) 01/13/22 02:09 MCV 81.0 fl (80-94) 01/13/22 02:09 MCH 23.4 pg (28.0-34.0) L 01/13/22 02:09 MCHC 29.0 g/dL (30.0-36.0) L 01/13/22 02:09 RDW 15.7 % (12.1-15.1) H 01/13/22 02:09 Plt Count 361 10^3/cmm (130-400) 01/13/22 02:09 MPV 11.0 fL (7.4-10.4) H 01/13/22 02:09 Neut % (Auto) 58.7 % 01/13/22 02:09 Lymph % (Auto) 24.1 % 01/13/22 02:09 [place] % (Auto) 11.5 % 01/13/22 02:09 Eos % (Auto) 4.3 % 01/13/22 02:09 Baso % (Auto) 1.1 % 01/13/22 02:09 Neut # (Auto) 5.54 10^3/uL (1.8-7.7) 01/13/22 02:09 Lymph # (Auto) 2.3 10^3/uL (0.8-4.8) 01/13/22 02:09 [place] # (Auto) 1.1 10^3/uL (0.2-0.9) H 01/13/22 02:09 Eos # (Auto) 0.4 10^3/uL (0.0-0.8) 01/13/22 02:09 Baso # (Auto) 0.1 10^3/uL (0.0-0.1) 01/13/22 02:09 Nucleated RBC % (auto) 0 % 01/13/22 02:09 Nucleated RBCs # 0.0 /100WBC 01/13/22 02:09 ESR 7 mm/hr (0-10) 01/08/22 15:01 APTT 55.8 SECONDS (23.9-36.7) H 01/13/22 02:09 Sodium 142 mmol/L (136-145) 01/13/22 02:09 Potassium 4.3 mmol/L (3.5-5.1) 01/13/22 02:09 Chloride 104 mmol/L (98-107) 01/13/22 02:09 Carbon Dioxide 26 mmol/L (22-29) 01/13/22 02:09 Anion Gap 16.3 (5-19) 01/13/22 02:09 BUN 27 mg/dL (6-20) H 01/13/22 02:09 Creatinine 1.3 mg/dL (0.7-1.2) H 01/13/22 02:09 GFR Calculation 61.5 mL/min (90-130) L 01/13/22 02:09 Glucose 92 mg/dL (65-115) 01/13/22 02:09 Estimat Average Glucose 131 01/09/22 10:00 Hemoglobin A1c 6.2 % (4.0-6.0) H 01/09/22 10:00 Calculated Osmolality 299 mOsm/kg (285-295) H 01/13/22 02:09 Calcium 9.2 mg/dL (8.5-10.5) 01/13/22 02:09 Phosphorus 4.1 mg/dL (2.5-4.5) 01/13/22 02:09 Magnesium 1.9 mg/dL (1.7-2.3) 01/13/22 02:09 Total Bilirubin 0.4 mg/dL (0.15-1.2) 01/13/22 02:09 AST 19 U/L (0-40) 01/13/22 02:09 ALT 17 U/L (0-41) 01/13/22 02:09 Alkaline Phosphatase 68 IU/L (40-130) 01/13/22 02:09 Troponin T Gen 5 ng/L 32 ng/L (0-15) H 01/08/22 15:01 C-Reactive Protein 16.2 mg/L (0.0-4.9) H 01/08/22 15:01 NT-Pro-B Natriuret Pep 2710 pg/mL (0-125) H 01/09/22 10:00 Total Protein 6.8 g/dL (6.6-8.7) 01/13/22 02:09 Albumin 3.4 g/dL (3.5-5.2) L 01/13/22 02:09 Globulin 3.4 g/dL (1.3-4.6) 01/13/22 02:09 Triglycerides 95 mg/dL (0-150) 01/09/22 10:00 Cholesterol 135 mg/dL (0-200) 01/09/22 10:00 LDL Cholesterol, Calc 88 mg/dL (50-129) 01/09/22 10:00 HDL Cholesterol 28 mg/dL (60-100) L 01/09/22 10:00 LDL/HDL Ratio 3.14 RATIO (0.00-3.22) 01/09/22 10:00 Cholesterol/HDL Ratio 4.82 mg/dL (1.0-5.00) 01/09/22 10:00 Procalcitonin 0.04 ng/mL (0-0.5) 01/08/22 15:01 TSH 2.15 uIU/mL (0.27-4.20) 01/09/22 10:00 Urine Opiates Screen Negative ng/mL (Negative) 01/08/22 17:43 Ur Barbiturates Screen Negative ng/mL (Negative) 01/08/22 17:43 Ur Phencyclidine Scrn Negative ng/mL (Negative) 01/08/22 17:43 Ur Amphetamines Screen Negative ng/mL (Negative) 01/08/22 17:43 U Benzodiazepines Scrn Negative ng/mL (Negative) 01/08/22 17:43 Urine Cocaine Screen Negative ng/mL (Negative) 01/08/22 17:43 U Marijuana (THC) Screen Negative ng/mL (Negative) 01/08/22 17:43 A&P Assessment and plan (1) Acute on chronic congestive heart failure: Since the patient is hemodynamically stable, I may start him on Entresto , tomorrow. Patient had a myocardial perfusion imaging yesterday. He was found to have areas of fixed severe to the small areas of reversible defect. For further evaluation of his coronary status, he requires a cardiac catheterization. Since the BUN/creatinine is coming down, we may go ahead and do the cardiac catheterization this evening. I also may go ahead and start him on Entresto 24/ twice daily. The risk of bleeding, hematoma, vascular injury, myocardial infarction, CVA, renal failure and other concomitant complications were explained in detail. Patient understood this well and consented to proceed. In view of his kidney disease, possibility of contrast-induced nephropathy was explained in detail. Status: Acute (2) Acute kidney injury superimposed on chronic kidney disease: The BUN/creatinine levels seems to be coming down and stable at this time. Status: Acute (3) Recurrent syncope: Etiology is not clear. Possibility of high degree heart block/malignant tachyarrhythmias are considerations. Patient needs to be closely monitored on telemetry. So far there is no malignant arrhythmias on the monitor. Patient's sleep apnea may be a contributing factor. Apparently he has not had any recurrence of these syncopal or near syncopal episodes since he was placed on CPAP in the hospital. Status: Acute (4) Benign essential hypertension with target blood pressure below 140/90: Currently the blood pressure is under control. Patient may continue on the current medications. Status: Acute (5) Sarcoidosis: This may require further evaluations. Status: Acute (6) Dyslipidemia: May continue on the current medications. Status: Acute (7) Family history of premature coronary artery disease: Status: Acute (8) Obstructive sleep apnea: May continue on the CPAP. Patient requires a sleep study as an outpatient Status: Acute (9) Acute axillary vein thrombosis: He was found to have a thrombosis of the brachial and axillary vein. Currently he is on IV anticoagulation. This can be continued. Left arm elevation also be appropriate. He may be started on subcu Lovenox because of the concern of fluid overload and ease of administration Status: Acute Plan We may consider going ahead with the cardiac catheterization tomorrow. Based on the angiogram findings, further recommendations will be made. We will keep n.p.o. after midnight Attestations Medical Necessity Statement*: Patient requires continued hospital stay for close monitoring and further management Coding Level of Care Code Acute Criminal Justice Lawyer for Chg Fwd History Expanded Problem Focused Exam Detailed Medical Decision Making Moderate Complexity Diagnoses Acute kidney injury superimposed on chronic kidney disease N17.9; N18.9 Acute on chronic congestive heart failure I50.9 Recurrent syncope R55 Benign essential hypertension with target blood pressure below 140/90 I10 Sarcoidosis D86.9 Dyslipidemia E78.5 Family history of premature coronary artery disease Z82.49 Obstructive sleep apnea G47.33 Acute axillary vein thrombosis I82.A19
[2022-01-13] MEDS: aspirin 81 mg EC Tablet PO (08:46)
[2022-01-13] MEDS: spironolactone 25 mg Tablet PO (08:46)
[2022-01-13] MEDS: sacubitril/valsartan 24-26 mg Tablet 1 EACH PO ×2 (08:46→18:39)
[2022-01-13] MEDS: cholecalciferol (vitamin D3) 1,000 unit Tablet 1000 UNIT PO (08:46)
[2022-01-13] MEDS: pantoprazole DR 40 mg Tablet PO (08:46)
[2022-01-13] MEDS: metoprolol tartrate 50 mg Tablet PO ×2 (08:49→18:40)
[2022-01-13] MEDS: acetaminophen 325 mg Tablet 650 MG PO (09:42)
[2022-01-13 09:46] LABS: Partial Thromboplastin Time 55.3 SECONDS (23.9-36.7)
[2022-01-13] MEDS: enoxaparin 150 mg/mL Syringe 140 MG SUBCUT (13:16)
[2022-01-13] MEDS: FUROsemide 10 mg/mL SDV 4mL 40 MG IVP (13:17)
--- NOTE | 2022-01-13 13:38 | P.PN_ITS ---
Subjective Subjective: Denies chest pain or pressure. Is not short of breath, but started having some dry cough. Reported some congestion to gunstock repairer. He is also a difficult stick, requiring several sticks to draw labs. He and family asked about PICC line, however, discussed DVT in left upper extremity, and risk of DVT also with PICC line, as long as labs can be drawn, they are agreeable to continue with peripheral IV at this time. Discussed we may request lidocaine jelly to help numb up before withdrawing. He is also having episodes of anxiety, has history of PTSD. At home takes naltrexone. Discussed may consider resuming naltrexone. However, on discussion with cardiology he is anticipated may need opioids during procedure tomorrow, so for now hold off naltrexone. To his nurse he also reported back pain/discomfort. Vitals/I&O/Wt Last Vital Signs Temp 98 F 01/13/22 08:00 Pulse 89 01/13/22 08:06 Resp 23 H 01/13/22 08:00 BP 150/105 01/13/22 08:00 Pulse Ox 99 01/13/22 08:06 01/12/22 01/13/22 01/13/22 22:59 06:59 14:59 Intake Total 1621.8 / 2620.55 1837.85 / 4458.40 360 / 360 Output Total 999 / 2029 1150 / 3180 1040 / 1040 Balance 621.8 / 590.55 687.85 / 1278.40 -680 / -680 Physical Exam Const: COMMON NORMALS: alert GENERAL APPEARANCE: cooperative NUTRITIONAL APPEARANCE: obese ORIENTATION/CONSCIOUSNESS: Yes awake HENMT: COMMON NORMALS: normocephalic, EAC's normal, Normal external nose present and moist oral mucous membranes HEAD & SCALP: normocephalic NOSE: Normal external nose present EXTERNAL AUDITORY CANAL: EAC's normal Neck/C-Spine: COMMON NORMALS: no meningeal signs Chest: CHEST: Yes Symmetrical chest wall rise Resp: COMMON NORMALS: clear to auscultation bilaterally AUSCULTATION: clear to auscultation bilaterally Cardio: COMMON NORMALS: regular rate, regular rhythm and No murmurs present (Cardio) RATE: regular rate RHYTHM: regular rhythm GI: COMMON NORMALS: Normal to inspection, nondistended, normoactive bowel sounds present, Soft to palpation and non-tender PALPATION: Yes Soft to palpation Extremity: COMMON NORMALS: no pedal edema GENERAL: Yes edema (2+ LE to thighs, lower abdomen) Neuro: COMMON NORMALS: moves all extremities SENSORIUM/ORIENTATION: Yes alert MENINGEAL SIGNS: Yes no meningeal signs Psych: COMMON NORMALS: mental status grossly normal Skin: COMMON NORMALS: no wounds RASHES: no rashes OTHER: Healed maculopapular hyperpigmented lesions Data : 01/13/22 02:09 01/13/22 02:09 A&P Assessment and plan (1) Acute on chronic congestive heart failure: Pending additional assessment with coronary angiography, but with finding of DVT in both upper extremity, test for now delayed. Discussed with cardiology. Angiogram is planned for tomorrow. DC IVF Lasix IV 40 x1 Diffuse edema of lower extremities, lower abdomen has been improving. With history of sarcoidosis: will need follow-up with specialist. Started on Entresto. Status: Acute (2) Heart failure with reduced ejection fraction: Severely increased left ventricular cavity size. Decreased left ?ventricular wall thickness. Severely decreased left ventricular ?systolic function. No regional wall motion abnormalities. Grade ?III/IV diastolic dysfunction (restrictive filling pattern), ?severely elevated filling pressures. Left ventricular ejection ?fraction is estimated at 15%. ?Normal right ventricular size and systolic function. Mild ?pulmonary hypertension, RVSP 44.1 mmHg. ?Structurally normal mitral valve. Mild mitral valve ?regurgitation. ?Trivial pericardial effusion. Echocardiographic findings suggest ?a non hemodynamically significant pericardial effusion. ?There are no prior echocardiogram studies to compare. Status: Acute (3) Left ventricular dysfunction with reduced left ventricular function: Status: Acute (4) DVT (deep venous thrombosis): PASCUAL Christianson Status: Acute (5) Severe methamphetamine use disorder: Status: Acute (6) Hyperlipidemia due to dietary fat intake: Status: Acute (7) Major depressive disorder, recurrent episode, moderate with anxious distress: Status: Chronic (8) Hypertension: Status: Chronic Qualifiers: Hypertension type: essential hypertension Qualified Code(s): I10 - Essential (primary) hypertension Plan Also has sleep apnea, continue CPAP during the night. Will need sleep study. Recurrent syncope: Unclear etiology, but possible tachyarrhythmia in setting of HFrEF, less than 30% EF. Pending additional assessment. PTSD: At home takes naltrexone, however, anticipated to be receiving opioids tomorrow, naltrexone has been on hold. Resume naltrexone when not needing opioids. Attestations Medical Necessity Statement*: Continue admission for surgical management of CHF, pending additional assessment with coronary angiography, anticoagulation with finding of DVT. Coding Level of Care Code Acute Application Performance Engineer for Chg Fwd Diagnoses Acute on chronic congestive heart failure I50.9 Heart failure with reduced ejection fraction I50.20 Left ventricular dysfunction with reduced left ventricular function I51.89 DVT (deep venous thrombosis) I82.409 Severe methamphetamine use disorder F15.20 Hyperlipidemia due to dietary fat intake E78.49 Major depressive disorder, recurrent episode, moderate with anxious distress F33.1 Hypertension I10 Hypertension type: essential hypertension
[2022-01-13] MEDS: atorvastatin 40 mg Tablet PO (20:28)
[2022-01-14] VITALS (9 sets, daily range): BP systolic 130–170; BP diastolic 89–94; PULSE 70–77; RESP 16–31; TEMP 36.4–36.7; O2SAT 93–100
[2022-01-14] MEDS: buPROPion XL (24 HR) 300 mg Tablet PO (05:10)
[2022-01-14 05:35] LABS: Basophils # 0.1 10^3/uL (0.0-0.1); Basophils % 0.7 %; Eosinophils # 0.4 10^3/uL (0.0-0.8); Eosinophils % 4.4 %; Hematocrit 47.9 % (42.0-52.0); Hemoglobin 14.2 g/dL (11.7-16.6); Lymphocytes # 1.9 10^3/uL (0.8-4.8); Lymphocytes % 19.2 %; Mean Corpuscular HGB Conc 29.6 g/dL (30.0-36.0); Mean Corpuscular Hemoglobin 23.7 pg (28.0-34.0); Mean Platelet Volume 11.6 fL (7.4-10.4); Monocytes # 1.2 10^3/uL (0.2-0.9); Monocytes % 11.9 %; Neutrophils # 6.37 10^3/uL (1.8-7.7); Neutrophils % 63.4 %; Nucleated Red Blood Cells % 0 %; Platelet Count 313 10^3/cmm (130-400); Red Blood Count 5.99 10^6/uL (4.1-5.3); Red Cell Distribution Width 15.9 % (12.1-15.1); White Blood Count 10.1 10^3/uL (4.0-10.0)
--- NOTE | 2022-01-14 05:41 | XACV_ITS ---
Exam Room: [facility] Ht: 178 cm Wt: 138 kg BSA: 2.68 m2 Gender: Male : 1980 Any Known Allergies: Other Exam Priority: Routine Procedure(s): Procedure Description: Diagnostic procedure Procedure Description: Left Heart Catheterization Procedure Description: Left ventriculography Procedure Description: Coronary Angiography Mikel MAJANO; Diagnostic Cath Status: Elective Diagnostic Findings * The left main is a medium caliber vessel with no significant stenotic lesions. * The left anterior descending artery is a medium caliber vessel which appears to wrap around the LV apex. Mild diffuse intimal irregularities were noted in the vessel. * The left circumflex artery is a medium to large caliber vessel which gives off multiple obtuse marginal branches. Minimal intimal irregularities were noted. No significant stenotic lesions. * The right coronary artery is a medium caliber dominant vessel which was found to have minimal intimal irregularities in the mid and distal segment. No significant stenotic lesions were noted. Conclusions 1. This is a 41-year-old white male, presenting with complaints of atypical chest pain and shortness of breath. He was found to be in congestive heart failure. His LV ejection fraction was severely decreased, based on the echocardiogram(15%). He had a myocardial perfusion imaging which revealed a small area of ischemia in the distribution of the right coronary artery. In view of his clinical presentation and the abnormal objective findings, in order to further evaluate his coronary status, a cardiac catheterization was recommended. Patient underwent left heart catheterization with left and right coronary angiogram and LV angiogram today. The findings are as follows. 2. Minimal intimal irregularities are noted in all the 3 coronary vessels. No significant obstructive lesions. The LV ejection fraction was around 20%. Severe diffuse hypokinesia of the left ventricle was noted. LV cavity was found to be dilated. Mild to moderate mitral regurgitation. LVEDP of 30 mmHg. Diagnostic RX Recommendation: medical therapy and/or counseling LV EDP: 30 mmHg Ventriculography Ejection Fraction: 20.0 % Left Ventriculography Findings: * The LV gram was performed in the the LV gram was performed in the GRUBER projection. LV cavity appears to be dilated. The overall LV ejection fraction was around 20%. Severe diffuse hypokinesia there is no filling defect. Mild to moderate mitral regurgitation. No significant mitral valve prolapse.. Pressures Phase:Rest AO : 126 / 94 ( 109 ) @ 7:26:00 AM 133 / 91 ( 107 ) @ 7:32:00 AM 133 / 77 ( 101 ) @ 7:32:00 AM LV : 135 / 15 / 35 @ 7:30:00 AM 130 / 10 / 33 @ 7:30:00 AM 133 / 14 / 34 @ 7:31:00 AM 133 / 12 / 33 @ 7:32:00 AM Valves Phase:DefaultPhase AV : 0.0 @ 6:37:36 AM 0.0 @ 6:37:36 AM AV Mean Gradient: 0.0 @ 6:37:36 AM Clinical Evaluation EBL: 5mL-10mL Procedural Details Procedure Consent Obtained. Admit Source: In Patient. Pre-Procedure Time Out. Identified patient by full name and date of as verbalized by the patient/guarantor. Does the consent match the physician's order: Yes. Accurate & Complete Informed Consent: Yes. Inpatient/Outpatient History & Physical on Chart: Yes. If H&P is completed, is and addenduem needed: N/A; If yes, is the addendum complete: N/A. Visualize and Verify Site with Patient/Guarantor: N/A. Relevant Radiology Images available: N/A. Pre-op teaching completed and patient verbalized understanding. The risks, benefits, and alternatives of sedation and/or procedure were discussed by physician. The patient agrees to continue. Procedure started. 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 Chest Pain Symptom Assessment: Atypical Angina. Correct patient, site and procedure confirmed by cath team. Current diagnosis: Chest Pain. PERRLA. Strong, equal hand public relations consultant bilaterally. Lungs clear x 5 lobes. IV Site on Arrival: 20 gauge in the right anticubital. IV Fluids: 0.9% NaCl at KVO. 0 mL infused prior to catheter finisher and inspector. Pre Procedural Pulses: right radial was 2+. Pre Procedural Pulses: bilateral dorsalis pedis was 2+. Oxygen started at 2liters/min via nasal canula. right groin was prepped with chloroprep then draped in the usual sterile fashion. right radial was prepped with chloroprep then draped in the usual sterile fashion. Physician notified. Baseline sample Acquired. HR: 74 BPM. Physician arrived. Physician scrubbed in. Immediate Pre-Procedure Time Out. Correct Patient: Yes; Correct Procedure: Yes; Correct Site: Yes; Correct Patient Position: Yes; Correct Supplies: Yes; Dried Flammable Prep: Yes; Blood Products Available: N/A;. Lidocaine 1% infiltrated to the right radial. Arterial access obtained. A 5 israeli Charles catheter in over wire. Multiple views taken of left coronary artery. Catheter redirected to the RCA. Catheter out. A 5 israeli JR4 catheter in over wire. Multiple views taken of right coronary artery. Catheter out. A 5 israeli Angled Pig catheter in over wire. EDP Sample taken: LV 135/15,35; HR: 74 BPM; SpO2: 97%. EDP Sample taken: LV 130/10,33; HR: 74 BPM; SpO2: 98%. LV gram performed in GRUBER @ 10 mL/second for a total of 30 mL. EDP Sample taken: LV 133/14,34; HR: 89 BPM; SpO2: 98%. Pullback taken: LV 133/12,33; AO 133/91(107); Mean: 0mmHg, Peak to Peak: 0mmHg, SEP: 11sec/min; HR: 78 BPM; SpO2: 96%. Physician review of cine films. Total IV fluids: 30 mL. Medication's Wasted: Lidocaine 1% = 4 mL. Medication's Wasted: Nitro = 49.8 mg. Post-op diagnosis: Mild CAD, Cardiomyopathy. Medication's Wasted: Heparin = 1000 u. A TR Band was successful obtaining hemostatsis at the Right Radial artery insertion site. Post Procedure: Pulses reassessed and unchanged. PERRLA. Strong, equal hand public relations consultant bilaterally. No VTE prophylaxis required. Complications: none. Estimated blood loss: 5mL-10mL. Responsiveness - Normal response to verbal stimuli; alert and oriented, PERRLA. Airway - Unaffected, no intervention required; spontaneous ventilation. Circulation: W/N/L, pulses unchanged. Nausea/Vomiting: No. Procedure completed. Patient transferred by wheelchair to 1st floor. Vital chart was stopped. Access Site Site: Right Radial artery Sheath Size: 6 Fr Hemostasis Method: TR Band Hemostasis Success: Successful Procedure Medications Start: 5:54 AM Stop: 5:54 AM Medication: 0.9% Saline Amount: 75 ml/hr Route: I.V. drip Start: 6:02 AM Stop: 6:02 AM Medication: Fentanyl Amount: 50 mcg Route: I.V. Start: 6:04 AM Stop: 6:04 AM Medication: Versed Amount: 1 mg Route: I.V. Start: 6:12 AM Stop: 6:12 AM Medication: Versed Amount: 1 mg Route: I.V. Start: 6:14 AM Stop: 6:14 AM Medication: Verapamil Amount: 5 mg Route: I.A. Start: 6:15 AM Stop: 6:15 AM Medication: Nitrogylcerin Amount: 200 mcg Route: I.A. Start: 6:18 AM Stop: 6:18 AM Medication: Heparin Amount: 5000 units Route: I.V. Start: 6:32 AM Stop: 6:32 AM Medication: Fentanyl Amount: 25 mcg Route: I.V. I, the attending physician, have reviewed and verified all procedure medications. Yes, all medications given per verbal order History/Risk Factors Hypertension: Yes Dyslipidemia: Yes Peripheral Arterial Disease (PAD): No Myocardial Infarction (OK): No Obesity: Yes Renal Disease: No Tobacco Use: Former Prior Interventions PCI: No CABG: No Valve Surgery: No Report Signatures Finalized by Dr Jg Morin MD [facility] on 01/14/2022 06:56 AM
[2022-01-14 06:00] LABS: Alanine Aminotransferase 17 U/L (0-41); Albumin Level 3.9 g/dL (3.5-5.2); Alkaline Phosphatase 72 IU/L (40-130); Blood Urea Nitrogen 19 mg/dL (6-20); Calcium 9.2 mg/dL (8.5-10.5); Carbon Dioxide 26 mmol/L (22-29); Chloride 101 mmol/L (98-107); Globulin 2.9 g/dL (1.3-4.6); Glomerular Filtration Rate 74.5 mL/min (90-130); Glucose 77 mg/dL (65-115); Magnesium 1.9 mg/dL (1.7-2.3); Osmolality Calculated 289 mOsm/kg (285-295); Phosphorus 4.2 mg/dL (2.5-4.5); Sodium 139 mmol/L (136-145); Total Bilirubin 0.6 mg/dL (0.15-1.2); Total Protein 6.8 g/dL (6.6-8.7)
[2022-01-14 06:06] LABS: Anion Gap 16.8 (5-19); Aspartate Amino Transferase 28 U/L (0-40); Potassium 4.8 mmol/L (3.5-5.1)
--- NOTE | 2022-01-14 06:06 | P.HPUD_ITS ---
Surgery/Procedure H&P Update DATE OF PROCEDURE: January 14, 2022 DATE H&P PERFORMED: 01/08/22 H&P UPDATE INFORMATION: I have reviewed H&P completed within last 30 days, I have examined patient prior to procedure and No changes to prior documentation PREOP DIAGNOSIS: CHF/Cardiomyopathy/abnormal stress test PRIMARY INDICATION FOR PROCEDURE: as above PLANNED PROCEDURE: [facility] with coronary angio and possible pci PHYSICAL EXAM: alert, oriented x 3, clear to auscultation bilaterally and regular rate & rhythm AIRWAY EVAL/ANESTHESIA PLAN: normal airway, see other exam findings, ASA III, Monitored Anesthesia, Local Anesthesia, Risks, benefits & alternatives of sedation and/or procedure discussed and Patient agrees to continue as planned
[2022-01-14] MEDS: sacubitril/valsartan 24-26 mg Tablet 1 EACH PO ×2 (08:31→17:34)
[2022-01-14] MEDS: cholecalciferol (vitamin D3) 1,000 unit Tablet 1000 UNIT PO (08:31)
[2022-01-14] MEDS: pantoprazole DR 40 mg Tablet PO (08:31)
[2022-01-14] MEDS: spironolactone 25 mg Tablet PO (08:31)
[2022-01-14] MEDS: metoprolol tartrate 50 mg Tablet PO ×2 (08:31→17:34)
[2022-01-14] MEDS: aspirin 81 mg EC Tablet PO (08:31)
[2022-01-14] MEDS: lidocaine 5% Patch 1 PATCH TOPICAL (09:20)
--- NOTE | 2022-01-14 10:38 | P.PN_ITS ---
Subjective Subjective: Denies chest pain or pressure. Overall breathing has been better. Had angiogram today, denies any complaints of procedure. TR band in place. Vitals/I&O/Wt Last Vital Signs Temp 98.0 F 01/14/22 07:10 Pulse 72 01/14/22 07:10 Resp 16 01/14/22 07:10 BP 131/94 01/14/22 07:10 Pulse Ox 94 01/14/22 07:10 01/13/22 01/14/22 01/14/22 22:59 06:59 14:59 Intake Total 720 / 2495.5 600 / 600 Output Total 1670 / 4580 1100 / 5680 625 / 625 Balance -950 / -2084.5 -1100 / -3184.5 -25 / -25 Physical Exam Const: COMMON NORMALS: alert GENERAL APPEARANCE: cooperative NUTRITIONAL APPEARANCE: obese ORIENTATION/CONSCIOUSNESS: Yes awake HENMT: COMMON NORMALS: normocephalic, EAC's normal, Normal external nose present and moist oral mucous membranes HEAD & SCALP: normocephalic NOSE: Normal external nose present EXTERNAL AUDITORY CANAL: EAC's normal Neck/C-Spine: COMMON NORMALS: no meningeal signs Chest: CHEST: Yes Symmetrical chest wall rise Resp: COMMON NORMALS: clear to auscultation bilaterally AUSCULTATION: clear to auscultation bilaterally Cardio: COMMON NORMALS: regular rate, regular rhythm and No murmurs present (Cardio) RATE: regular rate RHYTHM: regular rhythm GI: COMMON NORMALS: Normal to inspection, nondistended, normoactive bowel sounds present, Soft to palpation and non-tender PALPATION: Yes Soft to palpation Extremity: COMMON NORMALS: no pedal edema GENERAL: Yes edema (2+ LE to thighs, lower abdomen) OTHER: TR band R wrist Neuro: COMMON NORMALS: moves all extremities SENSORIUM/ORIENTATION: Yes alert MENINGEAL SIGNS: Yes no meningeal signs Psych: COMMON NORMALS: mental status grossly normal Skin: COMMON NORMALS: no wounds RASHES: no rashes OTHER: Healed maculopapular hyperpigmented lesions Data : 01/14/22 04:22 01/14/22 04:22 Micro: Microbiology 01/08/22 18:57 Blood Culture - Final Blood NO GROWTH AFTER 5 DAYS 01/08/22 18:53 Blood Culture - Final Blood NO GROWTH AFTER 5 DAYS A&P Assessment and plan (1) Acute on chronic congestive heart failure: Angiography with mild intimal irregularities, no significant coronary occlusion. Non-ischemic cardiomyopathy. Possibly toxin mediated with methamphetamine abuse, he has set up rehabilitation and will be attending after discharge. Also possibly 2/2 sarcoidosis. Needs follow up with specialist for consideration of immune suppression. Life vest Cardiology going to optimize on Entresto. Start Bumex PO in AM P.o. anticoagulation 24 hours after cath. Diffuse edema of lower extremities, lower abdomen has been improving. Status: Acute (2) DVT (deep venous thrombosis): PASCUAL Christianson Status: Acute (3) Heart failure with reduced ejection fraction: Severely increased left ventricular cavity size. Decreased left ?ventricular wall thickness. Severely decreased left ventricular ?systolic function. No regional wall motion abnormalities. Grade ?III/IV diastolic dysfunction (restrictive filling pattern), ?severely elevated filling pressures. Left ventricular ejection ?fraction is estimated at 15%. ?Normal right ventricular size and systolic function. Mild ?pulmonary hypertension, RVSP 44.1 mmHg. ?Structurally normal mitral valve. Mild mitral valve ?regurgitation. ?Trivial pericardial effusion. Echocardiographic findings suggest ?a non hemodynamically significant pericardial effusion. ?There are no prior echocardiogram studies to compare. Status: Acute (4) Left ventricular dysfunction with reduced left ventricular function: Status: Acute (5) Severe methamphetamine use disorder: Status: Acute (6) Hyperlipidemia due to dietary fat intake: Status: Acute (7) Major depressive disorder, recurrent episode, moderate with anxious distress: Status: Chronic (8) Hypertension: Status: Chronic Qualifiers: Hypertension type: essential hypertension Qualified Code(s): I10 - Essential (primary) hypertension Plan Also has sleep apnea, continue CPAP during the night. Will need sleep study. Recurrent syncope: Unclear etiology, but possible tachyarrhythmia in setting of HFrEF, less than 30% EF. Pending additional assessment. PTSD: At home takes naltrexone, however, anticipated to be receiving opioids tomorrow, naltrexone has been on hold. Resume naltrexone when not needing opioids. Attestations Medical Necessity Statement*: Continue admission for assessment management of nonischemic cardiomyopathy CHF, DVT. Coding Level of Care Code Acute Order Puller for [facility] Diagnoses Acute on chronic congestive heart failure I50.9 Heart failure with reduced ejection fraction I50.20 Left ventricular dysfunction with reduced left ventricular function I51.89 DVT (deep venous thrombosis) I82.409 Severe methamphetamine use disorder F15.20 Hyperlipidemia due to dietary fat intake E78.49 Major depressive disorder, recurrent episode, moderate with anxious distress F33.1 Hypertension I10 Hypertension type: essential hypertension
--- NOTE | 2022-01-14 18:34 | PM.PN ---
Subjective Subjective: Patient underwent left heart catheterization with left and right coronary angiogram and LV angiogram today. He was found to have mild diffuse intimal irregularities in all 3 coronary arteries. The LV ejection fraction was around 20%. The LVEDP was 30 mmHg. Based on the findings, it was decided to treat him medically. Medications: Medication Review Details: Current Medications Acetaminophen (Acetaminophen 325 Mg Tablet) 650 mg PO Q6H PRN PRN Reason: Mild/Mod Pain Or Temp >/= 101 Last Admin: 01/13/22 09:42 Dose: 650 mg Documented by: Al Hydrox/Mg Hydrox/Simethicone (Wuid-Ryo-Nuqyimksa-Kash 30 Ml Udc) 30 ml PO Q15M PRN PRN Reason: INDIGESTION Alprazolam (Alprazolam 0.5 Mg Tablet) 0.5 mg PO TID PRN PRN Reason: ANXIETY Apixaban (Apixaban 5 Mg Tablet) 10 mg PO BID@0900,2100 [facility] Aspirin (Aspirin 81 Mg Ec Tablet) 81 mg PO DAILY [facility] Last Admin: 01/14/22 08:31 Dose: 81 mg Documented by: Atorvastatin Calcium (Atorvastatin 40 Mg Tablet) 40 mg PO BEDTIME [facility] Last Admin: 01/13/22 20:28 Dose: 40 mg Documented by: Atropine Sulfate (Atropine 1 Mg/Ml Sdv 1 Ml) 0.5 mg IVP PRN PRN PRN Reason: Symptomatic bradycardia Bisacodyl (Bisacodyl 5 Mg Tablet) 10 mg PO DAILY PRN; Protocol PRN Reason: Constipation (see protocol) Bumetanide (Bumetanide 1 Mg Tablet) 2 mg PO DAILY [facility] Bupropion HCl (Bupropion Xl (24 Hr) 300 Mg Tablet) 300 mg PO QAM [facility] Last Admin: 01/14/22 05:10 Dose: 300 mg Documented by: Enoxaparin Sodium (Enoxaparin 150 Mg/Ml Syringe) 140 mg SUBCUT Q12H [facility] Last Admin: 01/13/22 13:16 Dose: 140 mg Documented by: Fentanyl (Fentanyl 50 Mcg/Ml Inj 2ml) 50 mcg IVP PRN PRN PRN Reason: Prior to sheath removal Lidocaine (Lidocaine 5% Patch) 1 patch TOPICAL [id number] [facility] Last Admin: 01/14/22 09:20 Dose: 1 patch Documented by: Lidocaine HCl (Lidocaine 2% Jelly 5 Ml) 1 applic TOPICAL PRN PRN PRN Reason: PAIN Magnesium Hydroxide (Magnesium Hydroxide 30 Ml Udc) 30 ml PO DAILY PRN PRN Reason: CONSTIPATION Metoprolol Tartrate (Metoprolol Tartrate 50 Mg Tablet) 50 mg PO BID [facility] Last Admin: 01/14/22 17:34 Dose: 50 mg Documented by: Naloxone HCl (Naloxone 0.4 Mg/Ml Sdv) 0.1 mg IVP Q2M PRN PRN Reason: RESPIRATORY RATE < 8/MIN Nitroglycerin (Nitroglycerin 0.4 Mg Sublingual Tablet) 0.4 mg SUBLINGUAL Q5M PRN PRN Reason: CHEST PAIN Ondansetron HCl (Ondansetron 2 Mg/Ml Sdv 2 Ml) 4 mg IVP Q8H PRN PRN Reason: vomiting, or N/V if npo Ondansetron HCl (Ondansetron 2 Mg/Ml Sdv 2 Ml) 4 mg IVP Q2M PRN PRN Reason: NAUSEA Last Admin: 01/09/22 07:59 Dose: 4 mg Documented by: Pantoprazole Sodium (Pantoprazole Dr 40 Mg Tablet) 40 mg PO DAILY [facility] Last Admin: 01/14/22 08:31 Dose: 40 mg Documented by: Sacubitril/Valsartan (Sacubitril/Valsartan 24-26 Mg Tablet) 1 each PO BID [facility] Last Admin: 01/14/22 17:34 Dose: 1 each Documented by: Spironolactone (Spironolactone 25 Mg Tablet) 25 mg PO DAILY [facility] Last Admin: 01/14/22 08:31 Dose: 25 mg Documented by: Vitamin D (Cholecalciferol (Vitamin D3) 1,000 Unit Tablet) 1,000 unit PO DAILY [facility] Last Admin: 01/14/22 08:31 Dose: 1,000 unit Documented by: Vitals/I&O/Wt Last Vital Signs Temp 97.5 F L 01/14/22 16:11 Pulse 71 01/14/22 16:11 Resp 20 H 01/14/22 16:11 BP 141/89 01/14/22 16:11 Pulse Ox 98 01/14/22 16:11 01/14/22 01/14/22 01/14/22 06:59 14:59 22:59 Intake Total 600 / 600 240 / 840 Output Total 1100 / 5680 625 / 625 475 / 1100 Balance -1100 / -3184.5 -25 / -25 -235 / -260 Physical Exam Narrative: GENERAL: The patient is alert and oriented times three. Not in any acute distress. HEENT: No significant pallor, icterus or lymphadenopathy. The pupils are reactant to light. Oral cavity: There are no mucous membrane lesions. NECK: Trachea appears to be central. No masses noted. RESPIRATORY: Chest is symmetrical. No intercostals muscle retraction or any accessory muscle activation. There is no chest wall tenderness. Breath sounds are heard bilaterally. No rales or rhonchi heard. No evidence of any consolidation. BREASTS: Deferred. HEART: The PMI could not be palpated. No other palpable precordial events. No palpable precordial events. S1 and S2 are normal. No S3 or S4 heard. No pericardial rub or any click heard. Short systolic murmur in the left sternal border. No diastolic murmurs. ABDOMEN: No vessel pulsations or distention. No tenderness. No organomegaly appreciated. No abdominal bruit. Bowel sounds are normally heard. : Deferred. RECTAL: Deferred. LYMPHATIC: No lymphadenopathy noted in the neck or groin. EXTREMITIES: 1+ edema both lower extremities. Minimal tenderness in the left arm around the elbow MUSCULOSKELETAL: No acute joint deformities or swelling. SKIN: Generalized skin rashes in the upper extremities and the trunk. Healed/healing blisters in the lower extremities NEUROPSYCHIATRIC: The patient is alert and oriented x3. Appears to be in a good mood. The higher functions are grossly within normal limits. No tremors or rigidity noted. Data : 01/14/22 04:22 01/14/22 04:22 Other Labs: Laboratory Last Values WBC 10.1 10^3/uL (4.0-10.0) H 01/14/22 04:22 RBC 5.99 10^6/uL (4.1-5.3) H 01/14/22 04:22 Hgb 14.2 g/dL (11.7-16.6) 01/14/22 04:22 Hct 47.9 % (42.0-52.0) 01/14/22 04:22 MCV 80.0 fl (80-94) 01/14/22 04:22 MCH 23.7 pg (28.0-34.0) L 01/14/22 04:22 MCHC 29.6 g/dL (30.0-36.0) L 01/14/22 04:22 RDW 15.9 % (12.1-15.1) H 01/14/22 04:22 Plt Count 313 10^3/cmm (130-400) 01/14/22 04:22 MPV 11.6 fL (7.4-10.4) H 01/14/22 04:22 Neut % (Auto) 63.4 % 01/14/22 04:22 Lymph % (Auto) 19.2 % 01/14/22 04:22 Canadian % (Auto) 11.9 % 01/14/22 04:22 Eos % (Auto) 4.4 % 01/14/22 04:22 Baso % (Auto) 0.7 % 01/14/22 04:22 Neut # (Auto) 6.37 10^3/uL (1.8-7.7) 01/14/22 04:22 Lymph # (Auto) 1.9 10^3/uL (0.8-4.8) 01/14/22 04:22 Canadian # (Auto) 1.2 10^3/uL (0.2-0.9) H 01/14/22 04:22 Eos # (Auto) 0.4 10^3/uL (0.0-0.8) 01/14/22 04:22 Baso # (Auto) 0.1 10^3/uL (0.0-0.1) 01/14/22 04:22 Nucleated RBC % (auto) 0 % 01/14/22 04:22 Nucleated RBCs # 0.0 /100WBC 01/14/22 04:22 ESR 7 mm/hr (0-10) 01/08/22 15:01 APTT 55.3 SECONDS (23.9-36.7) H 01/13/22 09:27 Sodium 139 mmol/L (136-145) 01/14/22 04:22 Potassium 4.8 mmol/L (3.5-5.1) 01/14/22 04:22 Chloride 101 mmol/L (98-107) 01/14/22 04:22 Carbon Dioxide 26 mmol/L (22-29) 01/14/22 04:22 Anion Gap 16.8 (5-19) 01/14/22 04: BUN 19 mg/dL (6-20) 01/14/22 04:22 Creatinine 1.1 mg/dL (0.7-1.2) 01/14/22 04:22 GFR Calculation 74.5 mL/min (90-130) L 01/14/22 04:22 Glucose 77 mg/dL (65-115) 01/14/22 04: Estimat Average Glucose 131 01/09/22 10:00 Hemoglobin A1c 6.2 % (4.0-6.0) H 01/09/22 10:00 Calculated Osmolality 289 mOsm/kg (285-295) 01/14/22 04: Calcium 9.2 mg/dL (8.5-10.5) 01/14/22 04: Phosphorus 4.2 mg/dL (2.5-4.5) 01/14/22 04: Magnesium 1.9 mg/dL (1.7-2.3) 01/14/22 04:22 Total Bilirubin 0.6 mg/dL (0.15-1.2) 01/14/22 04:22 AST 28 U/L (0-40) 01/14/22 04:22 ALT 17 U/L (0-41) 01/14/22 04:22 Alkaline Phosphatase 72 IU/L (40-130) 01/14/22 04:22 Troponin T Gen 5 ng/L 32 ng/L (0-15) H 01/08/22 15:01 C-Reactive Protein 16.2 mg/L (0.0-4.9) H 01/08/22 15:01 NT-Pro-B Natriuret Pep 2710 pg/mL (0-125) H 01/09/22 10:00 Total Protein 6.8 g/dL (6.6-8.7) 01/14/22 04:22 Albumin 3.9 g/dL (3.5-5.2) 01/14/22 04:22 Globulin 2.9 g/dL (1.3-4.6) 01/14/22 04:22 Triglycerides 95 mg/dL (0-150) 01/09/22 10:00 Cholesterol 135 mg/dL (0-200) 01/09/22 10:00 LDL Cholesterol, Calc 88 mg/dL (50-129) 01/09/22 10:00 HDL Cholesterol 28 mg/dL (60-100) L 01/09/22 10:00 LDL/HDL Ratio 3.14 RATIO (0.00-3.22) 01/09/22 10:00 Cholesterol/HDL Ratio 4.82 mg/dL (1.0-5.00) 01/09/22 10:00 Procalcitonin 0.04 ng/mL (0-0.5) 01/08/22 15:01 TSH 2.15 uIU/mL (0.27-4.20) 01/09/22 10:00 Urine Opiates Screen Negative ng/mL (Negative) 01/08/22 17:43 Ur Barbiturates Screen Negative ng/mL (Negative) 01/08/22 17:43 Ur Phencyclidine Scrn Negative ng/mL (Negative) 01/08/22 17:43 Ur Amphetamines Screen Negative ng/mL (Negative) 01/08/22 17:43 U Benzodiazepines Scrn Negative ng/mL (Negative) 01/08/22 17:43 Urine Cocaine Screen Negative ng/mL (Negative) 01/08/22 17:43 U Marijuana (THC) Screen Negative ng/mL (Negative) 01/08/22 17:43 Micro: Microbiology 01/08/22 18:57 Blood Culture - Final Blood NO GROWTH AFTER 5 DAYS 01/08/22 18:53 Blood Culture - Final Blood NO GROWTH AFTER 5 DAYS A&P Assessment and plan (1) Acute on chronic congestive heart failure: We will go ahead and do the cardiac catheterization today. Based on the results, further recommendations will be made. Status: Acute (2) Acute kidney injury superimposed on chronic kidney disease: The BUN/creatinine levels seems to be coming down and stable at this time. Status: Acute (3) Recurrent syncope: Patient has not had any recurrence of syncope,, since he was started on the CPAP. Status: Acute (4) Benign essential hypertension with target blood pressure below 140/90: Currently the blood pressure is under control. Patient may continue on the current medications. Status: Acute (5) Sarcoidosis: This may require further evaluations. Status: Acute (6) Dyslipidemia: May continue on the current medications. Status: Acute (7) Family history of premature coronary artery disease: Continue on the current management Status: Acute (8) Obstructive sleep apnea: May continue on the CPAP. Patient requires a sleep study as an outpatient Status: Acute (9) Acute axillary vein thrombosis: He was found to have a thrombosis of the brachial and axillary vein. Currently he is on IV anticoagulation. This can be continued. Left arm elevation also be appropriate. He may be started on subcu Lovenox because of the concern of fluid overload and ease of administration Status: Acute Plan We may consider going ahead with the cardiac catheterization today.. Based on the angiogram findings, further recommendations will be made. We will keep n.p.o. after midnight Attestations Medical Necessity Statement*: In the event of the patient developing any unusual chest pain, palpitations, SOB or any other new symptoms, advised to contact our office. I may see the patient back in the office in 6 months Coding Level of Care Code Acute Stripper Soft Plastic for Vangie [facility]ian Diagnoses Acute on chronic congestive heart failure I50.9 Acute kidney injury superimposed on chronic kidney disease N17.9; N18.9 Recurrent syncope R55 Benign essential hypertension with target blood pressure below 140/90 I10 Sarcoidosis D86.9 Dyslipidemia E78.5 Family history of premature coronary artery disease Z82.49 Obstructive sleep apnea G47.33 Acute axillary vein thrombosis I82.A19
[2022-01-14] MEDS: atorvastatin 40 mg Tablet PO (20:21)
[2022-01-15] VITALS (7 sets, daily range): BP systolic 159–169; BP diastolic 85–109; PULSE 60–82; RESP 14–21; TEMP 36.9–37; O2SAT 95–100
[2022-01-15] MEDS: buPROPion XL (24 HR) 300 mg Tablet PO (05:02)
[2022-01-15] MEDS: metoprolol tartrate 50 mg Tablet PO (08:49)
[2022-01-15] MEDS: pantoprazole DR 40 mg Tablet PO (08:49)
[2022-01-15] MEDS: bumetanide 1 mg Tablet 2 MG PO (08:49)
[2022-01-15] MEDS: aspirin 81 mg EC Tablet PO (08:49)
[2022-01-15] MEDS: cholecalciferol (vitamin D3) 1,000 unit Tablet 1000 UNIT PO (08:49)
[2022-01-15] MEDS: sacubitril/valsartan 24-26 mg Tablet 1 EACH PO (08:49)
[2022-01-15] MEDS: spironolactone 25 mg Tablet PO (08:50)
[2022-01-15] MEDS: apixaban 5 mg Tablet 10 MG PO ×2 (08:54→19:37)
--- NOTE | 2022-01-15 09:28 | PM.PN ---
Subjective Subjective: Patient is feeling okay. Mainly complaining of pain at the IV insertion site on the right hand. No chest pain. No unusual shortness of breath. The blood pressure seems to be going up Medications: Medication Review Details: Current Medications Acetaminophen (Acetaminophen 325 Mg Tablet) 650 mg PO Q6H PRN PRN Reason: Mild/Mod Pain Or Temp >/= 101 Last Admin: 01/13/22 09:42 Dose: 650 mg Documented by: Al Hydrox/Mg Hydrox/Simethicone (Acsz-Ydq-Hbpmnzewo-Kash 30 Ml Udc) 30 ml PO Q15M PRN PRN Reason: INDIGESTION Alprazolam (Alprazolam 0.5 Mg Tablet) 0.5 mg PO TID PRN PRN Reason: ANXIETY Apixaban (Apixaban 5 Mg Tablet) 10 mg PO BID@0900,2100 [facility] Last Admin: 01/15/22 08:54 Dose: 10 mg Documented by: Aspirin (Aspirin 81 Mg Ec Tablet) 81 mg PO DAILY [facility] Last Admin: 01/15/22 08:49 Dose: 81 mg Documented by: Atorvastatin Calcium (Atorvastatin 40 Mg Tablet) 40 mg PO BEDTIME [facility] Last Admin: 01/14/22 20:21 Dose: 40 mg Documented by: Atropine Sulfate (Atropine 1 Mg/Ml Sdv 1 Ml) 0.5 mg IVP PRN PRN PRN Reason: Symptomatic bradycardia Bisacodyl (Bisacodyl 5 Mg Tablet) 10 mg PO DAILY PRN; Protocol PRN Reason: Constipation (see protocol) Bumetanide (Bumetanide 1 Mg Tablet) 2 mg PO DAILY [facility] Last Admin: 01/15/22 08:49 Dose: 2 mg Documented by: Bupropion HCl (Bupropion Xl (24 Hr) 300 Mg Tablet) 300 mg PO QAM [facility] Last Admin: 01/15/22 05:02 Dose: 300 mg Documented by: Carvedilol (Carvedilol 12.5 Mg Tablet) 12.5 mg PO BID [facility] Enoxaparin Sodium (Enoxaparin 150 Mg/Ml Syringe) 140 mg SUBCUT Q12H [facility] Last Admin: 01/13/22 13:16 Dose: 140 mg Documented by: Fentanyl (Fentanyl 50 Mcg/Ml Inj 2ml) 50 mcg IVP PRN PRN PRN Reason: Prior to sheath removal Lidocaine (Lidocaine 5% Patch) 1 patch TOPICAL [id number] [facility] Last Admin: 01/15/22 08:52 Dose: Not Given Documented by: Lidocaine HCl (Lidocaine 2% Jelly 5 Ml) 1 applic TOPICAL PRN PRN PRN Reason: PAIN Magnesium Hydroxide (Magnesium Hydroxide 30 Ml Udc) 30 ml PO DAILY PRN PRN Reason: CONSTIPATION Naloxone HCl (Naloxone 0.4 Mg/Ml Sdv) 0.1 mg IVP Q2M PRN PRN Reason: RESPIRATORY RATE < 8/MIN Nitroglycerin (Nitroglycerin 0.4 Mg Sublingual Tablet) 0.4 mg SUBLINGUAL Q5M PRN PRN Reason: CHEST PAIN Ondansetron HCl (Ondansetron 2 Mg/Ml Sdv 2 Ml) 4 mg IVP Q8H PRN PRN Reason: vomiting, or N/V if npo Ondansetron HCl (Ondansetron 2 Mg/Ml Sdv 2 Ml) 4 mg IVP Q2M PRN PRN Reason: NAUSEA Last Admin: 01/09/22 07:59 Dose: 4 mg Documented by: Pantoprazole Sodium (Pantoprazole Dr 40 Mg Tablet) 40 mg PO DAILY [facility] Last Admin: 01/15/22 08:49 Dose: 40 mg Documented by: Sacubitril/Valsartan (Sacubitril/Valsartan 24-26 Mg Tablet) 2 each PO BID [facility] Spironolactone (Spironolactone 25 Mg Tablet) 25 mg PO DAILY [facility] Last Admin: 01/15/22 08:50 Dose: 25 mg Documented by: Vitamin D (Cholecalciferol (Vitamin D3) 1,000 Unit Tablet) 1,000 unit PO DAILY [facility] Last Admin: 01/15/22 08:49 Dose: 1,000 unit Documented by: Vitals/I&O/Wt Last Vital Signs Temp 98.6 F 01/15/22 06:49 Pulse 74 01/15/22 06:49 Resp 21 H 01/15/22 06:49 BP 159/108 01/15/22 06:49 Pulse Ox 98 01/15/22 06:49 01/14/22 01/15/22 01/15/22 22:59 06:59 14:59 Intake Total 660 / 1260 Output Total 775 / 1400 1120 / 2520 Balance -115 / -140 -1120 / -1260 Physical Exam Narrative: GENERAL: The patient is alert and oriented times three. Not in any acute distress. HEENT: No significant pallor, icterus or lymphadenopathy. The pupils are reactant to light. Oral cavity: There are no mucous membrane lesions. NECK: Trachea appears to be central. No masses noted. RESPIRATORY: Chest is symmetrical. No intercostals muscle retraction or any accessory muscle activation. There is no chest wall tenderness. Breath sounds are heard bilaterally. No rales or rhonchi heard. No evidence of any consolidation. BREASTS: Deferred. HEART: The PMI could not be palpated. No other palpable precordial events. No palpable precordial events. S1 and S2 are normal. No S3 or S4 heard. No pericardial rub or any click heard. Short systolic murmur in the left sternal border. No diastolic murmurs. ABDOMEN: No vessel pulsations or distention. No tenderness. No organomegaly appreciated. No abdominal bruit. Bowel sounds are normally heard. : Deferred. RECTAL: Deferred. LYMPHATIC: No lymphadenopathy noted in the neck or groin. EXTREMITIES: 1+ edema both lower extremities. Has some redness around the IV insertion site in the right upper arm. MUSCULOSKELETAL: No acute joint deformities or swelling. SKIN: Generalized skin rashes in the upper extremities and the trunk. Healed/healing blisters in the lower extremities NEUROPSYCHIATRIC: The patient is alert and oriented x3. Appears to be in a good mood. The higher functions are grossly within normal limits. No tremors or rigidity noted. Data : 01/14/22 04:22 01/14/22 04:22 A&P Assessment and plan (1) Acute on chronic congestive heart failure: Patient had a cardiac catheterization yesterday. He was found to have no significant obstructive coronary artery disease. The LV ejection fraction was around 20%. The LVEDP was 30 mmHg. We may start him on Lasix 40 mg p.o. daily. Continue the spironolactone 25 mg daily. Check on the BMP today. Status: Acute (2) Nonischemic congestive cardiomyopathy: The LV ejection fraction by the LV gram was around 20%. Patient is at high risk for malignant ventricular arrhythmia. He may benefit from a LifeVest. This was discussed with the patient in detail which he understood well. We will go ahead and order this. I also may increase the dose of the Entresto, since the blood pressure is going up. He may be started on Entresto 24/26 2 tablets twice daily. Also I am is changing metoprolol to carvedilol 12.5 mg p.o. twice daily. Status: Acute (3) Acute kidney injury superimposed on chronic kidney disease: The kidney function is almost back to normal at this time. We will continue on the current treatment measures. Status: Acute (4) Recurrent syncope: Patient has not had any recurrence of syncope,, since he was started on the CPAP. Need to schedule for a sleep study as soon as possible as an outpatient. Status: Acute (5) Benign essential hypertension with target blood pressure below 140/90: I would increase the dose of the Entresto to 2 tablets of 24/ twice daily. Also switch metoprolol to carvedilol. Status: Acute (6) Sarcoidosis: This may require further evaluations. Status: Acute (7) Dyslipidemia: May continue on the current medications. Status: Acute (8) Obstructive sleep apnea: May continue on the CPAP. Patient requires a sleep study as an outpatient Status: Acute (9) Acute axillary vein thrombosis: May be restarted on the anticoagulant today. Status: Acute Plan Cellulitis at the IV site - ? Antibiotic, defer to the primary Lasix 40 mg p.o. now and daily. Other medication changes as mentioned above patient may go home once he gets the LifeVest. [facility]ointment [facility] in 1 week to be seen by the nurse practitioner. Appointment with me in the office in 1 month. 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
[2022-01-15] MEDS: sacubitril/valsartan 24-26 mg Tablet 2 EACH PO (18:12)
[2022-01-15] MEDS: carvedilol 12.5 mg Tablet PO (18:13)
[2022-01-15] MEDS: atorvastatin 40 mg Tablet PO (19:36)
--- NOTE | 2022-01-15 20:05 | PM.DCS ---
Discharge Providers Date of Admission: 01/09/22 09:19 Date of Discharge: January 15, 2022 Attending Provider at Admission: Brandon Verdugo MD Attending Provider at Discharge: Ruperto Loaiza Primary Care Provider: ANGEL Rouse Diagnoses at Discharge Discharge Diagnosis (1) Acute on chronic congestive heart failure: Status: Acute (2) Nonischemic congestive cardiomyopathy: Status: Acute (3) Acute kidney injury superimposed on chronic kidney disease: Status: Acute (4) Recurrent syncope: Status: Acute (5) Benign essential hypertension with target blood pressure below 140/90: Status: Acute (6) Sarcoidosis: Status: Acute Permanent problem details: Reported, have been unable to obtain hx documentation (7) Dyslipidemia: Status: Acute (8) Obstructive sleep apnea: Status: Acute (9) Acute axillary vein thrombosis: Status: Acute Reason for Visit Reason for Visit: SYNCOPAL EPISODE Hospital Course Hospital Course Pleasant 41-year-old gentleman with sarcoidosis. He is evaluated to [facility], but was lost to follow-up for more than 10 years. Involving multiple sites, methamphetamine use disorder, used to use methamphetamine IV up to 3 g a day up until 4 years ago. Then stopped using IV snorting or smoking methamphetamine up until a week before the admission. HTN, presented with increasing shortness of breath, anasarca, with severe edema lower extremities, abdominal wall, multiple syncopal episodes, with finding of severe LV systolic dysfunction with EF of 15% on echocardiogram on presentation, with unclear etiology of cardiomyopathy, in acute systolic and diastolic biventricular heart failure, started on treatment for CHF including IV diuresis, with good urine output, decreasing edema. Was assessed by cardiology, with stress test and appearance of large size prior infarct in apical lateral, apical inferior, inferior and apical anterior carrizales with small area of lobo-infarct ischemia reported. Eventually underwent coronary angiography which showed some intimal irregularities, but no significant stenosis indicating nonischemic cardiomyopathy. Coronary angiography was delayed due to acute kidney injury during hospitalization with creatinine as high as 1.9, transiently with diuresis was withheld, received gentle fluid challenge. [place] gradually has been improving with creatinine decreased to 1.1. Angiography was additionally delayed due to finding of DVT in left upper extremity for which she has been started and maintained on anticoagulation. Asked to follow-up with cardiology, advised to avoid further methamphetamine use, as well as follow-up with rheumatology with regards to sarcoidosis. Is on diuretic with Bumex, spironolactone, was started and titrated on Entresto. LifeVest is being arranged prior to discharge today. He has decided to quit methamphetamine, and has gotten assistance in getting in touch with rehabilitation facility in [place] where he will be attending after discharge. With also noted symptoms of sleep apnea on presentation, he has been maintained on CPAP nightly. Due to this he is additionally referred for sleep study. TTE Severely increased left ventricular cavity size. Decreased left ventricular wall thickness. Severely decreased left ventricular systolic function. No regional wall motion abnormalities. Grade III/IV diastolic dysfunction (restrictive filling pattern), severely elevated filling pressures. Left ventricular ejection fraction is estimated at 15%. Normal right ventricular size and systolic function. Mild pulmonary hypertension, RVSP 44.1 mmHg. Structurally normal mitral valve. Mild mitral valve regurgitation. Trivial pericardial effusion. Echocardiographic findings suggest a non hemodynamically significant pericardial effusion. There are no prior echocardiogram studies to compare. Physical Exam Const: COMMON NORMALS: alert GENERAL APPEARANCE: cooperative NUTRITIONAL APPEARANCE: obese ORIENTATION/CONSCIOUSNESS: Yes awake HENMT: COMMON NORMALS: normocephalic, EAC's normal, Normal external nose present and moist oral mucous membranes HEAD & SCALP: normocephalic NOSE: Normal external nose present EXTERNAL AUDITORY CANAL: EAC's normal Neck/C-Spine: COMMON NORMALS: no meningeal signs Chest: CHEST: Yes Symmetrical chest wall rise Resp: COMMON NORMALS: clear to auscultation bilaterally AUSCULTATION: clear to auscultation bilaterally Cardio: COMMON NORMALS: regular rate, regular rhythm and No murmurs present (Cardio) RATE: regular rate RHYTHM: regular rhythm GI: COMMON NORMALS: Normal to inspection, nondistended, normoactive bowel sounds present, Soft to palpation and non-tender PALPATION: Yes Soft to palpation Extremity: COMMON NORMALS: no pedal edema GENERAL: Yes edema (2+ LE to thighs, trace lower abdomen) Neuro: COMMON NORMALS: moves all extremities SENSORIUM/ORIENTATION: Yes alert MENINGEAL SIGNS: Yes no meningeal signs Psych: COMMON NORMALS: mental status grossly normal Skin: COMMON NORMALS: no wounds RASHES: no rashes OTHER: Healed maculopapular hyperpigmented lesions Discharge Data Studies Completed and Pending Completed Studies During Hospitalization Category Date Time Status 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 Routine Exams 01/14/22 05:41 Completed Sestamibi Stress Test Request Routine Exams 01/08/22 18:54 Draft XR chest 1V portable [id number] Urgent Exams 01/08/22 14:09 Completed NM richi perf SPECT r/s* [id number] Routine Nuc Med 01/09/22 06:30 [place] [id number] Routine Ultrasound 01/12/22 09:26 [place] [id number] Routine Ultrasound 01/12/22 09:38 Completed Pending at discharge Category Date Time Status Basic Metabolic Panel AM LABS Lab 01/16/22 04:00 Ordered Basic Metabolic Panel AM LABS Lab 01/17/22 04:00 Ordered Complete Blood Count w/Auto AM LABS Lab 01/16/22 04:00 Ordered Complete Blood Count w/Auto AM LABS Lab 01/17/22 04:00 Ordered Radiology Impressions Chest X-Ray 01/08/22 14:09 IMPRESSION: 1. Enlarged cardiac silhouette size with probable mild vascular congestion. 2. No obvious acute consolidation. Suboptimal lung base assessment. Followup including lateral view may be obtained if clinically indicated. Laboratory Results WBC 10.1 10^3/uL (4.0-10.0) H 01/14/22 04:22 RBC 5.99 10^6/uL (4.1-5.3) H 01/14/22 04:22 Hgb 14.2 g/dL (11.7-16.6) 01/14/22 04:22 Hct 47.9 % (42.0-52.0) 01/14/22 04:22 MCV 80.0 fl (80-94) 01/14/22 04:22 MCH 23.7 pg (28.0-34.0) L 01/14/22 04:22 MCHC 29.6 g/dL (30.0-36.0) L 01/14/22 04:22 RDW 15.9 % (12.1-15.1) H 01/14/22 04:22 Plt Count 313 10^3/cmm (130-400) 01/14/22 04:22 MPV 11.6 fL (7.4-10.4) H 01/14/22 04:22 Neut % (Auto) 63.4 % 01/14/22 04:22 Lymph % (Auto) 19.2 % 01/14/22 04:22 [place] % (Auto) 11.9 % 01/14/22 04:22 Eos % (Auto) 4.4 % 01/14/22 04:22 Baso % (Auto) 0.7 % 01/14/22 04:22 Neut # (Auto) 6.37 10^3/uL (1.8-7.7) 01/14/22 04:22 Lymph # (Auto) 1.9 10^3/uL (0.8-4.8) 01/14/22 04:22 [place] # (Auto) 1.2 10^3/uL (0.2-0.9) H 01/14/22 04:22 Eos # (Auto) 0.4 10^3/uL (0.0-0.8) 01/14/22 04: Baso # (Auto) 0.1 10^3/uL (0.0-0.1) 01/14/22 04:22 Nucleated RBC % (auto) 0 % 01/14/22 04: Nucleated RBCs # 0.0 /100WBC 01/14/22 04:22 ESR 7 mm/hr (0-10) 01/08/22 15:01 APTT 55.3 SECONDS (23.9-36.7) H 01/13/22 09:27 Sodium 139 mmol/L (136-145) 01/14/22 04:22 Potassium 4.8 mmol/L (3.5-5.1) 01/14/22 04:22 Chloride 101 mmol/L (98-107) 01/14/22 04:22 Carbon Dioxide 26 mmol/L (22-29) 01/14/22 04:22 Anion Gap 16.8 (5-19) 01/14/22 04:22 BUN 19 mg/dL (6-20) 01/14/22 04:22 Creatinine 1.1 mg/dL (0.7-1.2) 01/14/22 04:22 GFR Calculation 74.5 mL/min (90-130) L 01/14/22 04:22 Glucose 77 mg/dL (65-115) 01/14/22 04:22 Estimat Average Glucose 131 01/09/22 10:00 Hemoglobin A1c 6.2 % (4.0-6.0) H 01/09/22 10:00 Calculated Osmolality 289 mOsm/kg (285-295) 01/14/22 04:22 Calcium 9.2 mg/dL (8.5-10.5) 01/14/22 04:22 Phosphorus 4.2 mg/dL (2.5-4.5) 01/14/22 04:22 Magnesium 1.9 mg/dL (1.7-2.3) 01/14/22 04:22 Total Bilirubin 0.6 mg/dL (0.15-1.2) 01/14/22 04:22 AST 28 U/L (0-40) 01/14/22 04:22 ALT 17 U/L (0-41) 01/14/22 04:22 Alkaline Phosphatase 72 IU/L (40-130) 01/14/22 04:22 Troponin T Gen 5 ng/L 32 ng/L (0-15) H 01/08/22 15:01 C-Reactive Protein 16.2 mg/L (0.0-4.9) H 01/08/22 15:01 NT-Pro-B Natriuret Pep 2710 pg/mL (0-125) H 01/09/22 10:00 Total Protein 6.8 g/dL (6.6-8.7) 01/14/22 04:22 Albumin 3.9 g/dL (3.5-5.2) 01/14/22 04:22 Globulin 2.9 g/dL (1.3-4.6) 01/14/22 04:22 Triglycerides 95 mg/dL (0-150) 01/09/22 10:00 Cholesterol 135 mg/dL (0-200) 01/09/22 10:00 LDL Cholesterol, Calc 88 mg/dL (50-129) 01/09/22 10:00 HDL Cholesterol 28 mg/dL (60-100) L 01/09/22 10:00 LDL/HDL Ratio 3.14 RATIO (0.00-3.22) 01/09/22 10:00 Cholesterol/HDL Ratio 4.82 mg/dL (1.0-5.00) 01/09/22 10:00 Procalcitonin 0.04 ng/mL (0-0.5) 01/08/22 15:01 TSH 2.15 uIU/mL (0.27-4.20) 01/09/22 10:00 Urine Opiates Screen Negative ng/mL (Negative) 01/08/22 17:43 Ur Barbiturates Screen Negative ng/mL (Negative) 01/08/22 17:43 Ur Phencyclidine Scrn Negative ng/mL (Negative) 01/08/22 17:43 Ur Amphetamines Screen Negative ng/mL (Negative) 01/08/22 17:43 U Benzodiazepines Scrn Negative ng/mL (Negative) 01/08/22 17:43 Urine Cocaine Screen Negative ng/mL (Negative) 01/08/22 17:43 U Marijuana (THC) Screen Negative ng/mL (Negative) 01/08/22 17:43 Vitals Last Vital Signs Temp 98.6 F 01/15/22 06:49 Pulse 82 01/15/22 14:00 Resp 18 01/15/22 12:00 BP 159/85 01/15/22 12:00 Pulse Ox 100 01/15/22 12:00 Discharge Plan Discharge Patient Disposition: Home Condition: Stable Prescriptions: New apixaban 5 mg (74 tabs) tablets,dose pack See Rx Instructions .ROUTE .COMPLEX Qty: 74 0RF Rx Instructions: orally per package directions carvedilol 12.5 mg Tablet 12.5 mg PO BID Qty: 90 0RF Entresto 24-26 mg Tablet 2 ea PO BID Qty: 180 0RF bumetanide 1 mg tablet 1 mg PO DAILY Qty: 90 0RF doxycycline hyclate 100 mg capsule 100 mg PO BID 7 Days Qty: 14 0RF Continued pantoprazole 40 mg tablet,delayed release (DR/EC) 40 mg PO DAILY Qty: 90 0RF Rx Instructions: Take on empty stomach rosuvastatin 5 mg tablet 5 mg PO DAILY Qty: 90 0RF albuterol sulfate [ProAir HFA] 90 mcg/actuation HFA aerosol inhaler See Rx Instructions .ROUTE .COMPLEX Qty: 8.5 0RF Dose Instruction: INHALE 2 PUFFS BY MOUTH FOUR TIMES DAILY Rx Instructions: INHALE 2 PUFFS BY MOUTH FOUR TIMES DAILY ondansetron HCl [Zofran] 4 mg tablet 4 mg PO Q8H PRN (Reason: nausea and vomiting) Qty: 90 0RF Rx Instructions: May take one tablet every eight hours as needed for nausea/vomiting cholecalciferol (vitamin D3) 25 mcg (1,000 unit) capsule 25 mcg PO DAILY Qty: 30 3RF Rx Instructions: Take one capsule daily multivitamin [One Daily Multivitamin] Tablet 1 tab PO DAILY 0RF bupropion HCl [Wellbutrin XL] 300 mg tablet extended release 24 hr 300 mg PO QAM Qty: 30 3RF Rx Instructions: Take one tablet every morning naltrexone 50 mg tablet 50 mg PO DAILY 0RF Rx Instructions: Take one tablet every morning Changed Aldactone 50 mg tablet 25 mg PO DAILY 30 Days Qty: 60 0RF Discontinued lisinopril 10 mg tablet 10 mg PO QDAY Qty: 90 0RF ibuprofen 200 mg tablet 200 mg PO Q6H PRN (Reason: Pain) 0RF furosemide [Lasix] 40 mg tablet 40 mg PO DAILY 0RF metoprolol tartrate [Lopressor] 50 mg tablet 50 mg PO BID 30 Days Qty: 60 0RF Discharge Orders: Discharge Order (Routine); Ordered 01/15/22 Ordered By: Ruperto Loaiza Other Ambulatory Orders: Sleep Study/Titration (Routine) Timeframe: 1 Week Facility: [facility] - Location: [facility] Ordered By: Ruperto Loiaza Referrals: Jg Morin MD [Physician] - 02/17/22 1:45 pm Tex Araujo MD [Physician] - 02/11/22 9:00 am (Sarcoidosis, poss cardiac sarcoidosis) Edilson Tompkins FNP [Primary Care Provider] - 01/21/22 9:15 am Allison Jaquez FNP [Nurse Practitioner] - 01/21/22 3:15 pm Discharge Diet: Cardiac and Low Salt Patient Instructions: Bumetanide (By mouth) (Bumex), Carvedilol (By mouth), Apixaban (By mouth), Sacubitril/Valsartan (By mouth), Heart Failure (GEN), Sleep Apnea (GEN), Acute Kidney Injury (GEN), Deep Vein Thrombosis (GEN), Sarcoidosis (GEN), Methamphetamine Use Disorder (GEN), Low-Sodium Diet (GEN), Sleep Study (GEN) Activity Restrictions/Additional Instructions: Please obtain and wear a LifeVest until instructed otherwise by your heart doctor to help reduce chance of sudden from life-threatening cardiac arrhythmia associated with heart failure with low ejection fraction. Follow-up with your primary doctor, heart doctor for reassessment of congestive heart failure, volume status. Reassessment of your diuretic therapy. Other medications. Pursue rehabilitation for methamphetamine use disorder to help you quit. Avoid methamphetamine due to risk of further toxicity. Follow-up also with rheumatology for assessment of sarcoidosis since in addition to other organs it can also affect the heart. Complete antibiotic course with doxycycline and follow-up with your primary doctor for reassessment of small area of cellulitis in the right forearm at the site of removed peripheral catheter. Follow-up with primary care doctor for reassessment of blood clot in left arm. Continue blood thinner medication. In case you notice bleeding that is not subsiding, hold blood thinner medication and seek medical attention. Follow-up with a sleep study to formally diagnose sleep apnea and allow for arrangements of your own CPAP. Untreated sleep apnea may be associated with other more serious conditions. Please have your primary doctor also follow-up your renal function given you had acute kidney injury noted during hospitalization which so far has been improving. Centralized Scheduling Department will be calling with the details of your Outpatient Sleep Study. If you don'r hear from them by Wednesday morning, please give them a call at [phone]. Thank you Discharge Attestations Time Spent in Discharge Care*: greater than 30 min Quality Metrics Clinical Quality Measures [ No reported AMI, CVA or VTE this stay] Coding Level of Care Code Acute Chg FW DC note Diagnoses Acute on chronic congestive heart failure I50.9 Nonischemic congestive cardiomyopathy I42.0 Acute kidney injury superimposed on chronic kidney disease N17.9; N18.9 Recurrent syncope R55 Benign essential hypertension with target blood pressure below 140/90 I10 Sarcoidosis D86.9 Dyslipidemia E78.5 Obstructive sleep apnea G47.33 Acute axillary vein thrombosis I82.A19
== END 2022-01-15 22:00 | disposition home or self-care (01) | DRG 286 ==
LOC: ER 17:02 → CSU 18:04
PROVIDERS: Internal Medicine Cardiovascular Disease; Admitting Provider Family Medicine; Emergency Provider Emergency Medicine; PCP Registered Nurse; Visit Provider Internal Medicine
PROC: 4A023N7 Measurement of Cardiac Sampling and Pressure, Left Heart, Percutaneous Approach (ICD-10-PCS; principal; 2022-01-14 06:00)
DX: I13.0 Hypertensive heart and chronic kidney disease with heart failure and stage 1 through stage 4 chronic kidney disease, or unspecified chronic kidney disease (principal); I50.41 Acute combined systolic (congestive) and diastolic (congestive) heart failure; N17.9 Acute kidney failure, unspecified; F33.1 Major depressive disorder, recurrent, moderate; I82.622 Acute embolism and thrombosis of deep veins of left upper extremity; L03.114 Cellulitis of left upper limb; N18.9 Chronic kidney disease, unspecified; I42.9 Cardiomyopathy, unspecified; I25.2 Old myocardial infarction; D86.9 Sarcoidosis, unspecified; F15.11 Other stimulant abuse, in remission; R55 Syncope and collapse; F43.12 Post-traumatic stress disorder, chronic; E78.5 Hyperlipidemia, unspecified; I27.20 Pulmonary hypertension, unspecified; I34.0 Nonrheumatic mitral (valve) insufficiency; G47.33 Obstructive sleep apnea (adult) (pediatric); R09.02 Hypoxemia; R00.1 Bradycardia, unspecified; R21 Rash and other nonspecific skin eruption; Z87.891 Personal history of nicotine dependence; Z82.49 Family history of ischemic heart disease and other diseases of the circulatory system; Z79.82 Long term (current) use of aspirin; Z79.899 Other long term (current) drug therapy
CPT/HCPCS: 36415; 71045; 78452; 80048; 80053; 80061; 80306; 83036; 83735; 83880; 84100; 84145; 84443; 84484; 85025; 85651; 85730; 86140; 87040; 93005; 93017; 93452; 93458; 93970; 94660; 94664; 96360; 96372; 96374; 99152; 99153; 99285; A9500; C1769; C1887; C1894; G0378; J1644; J1650; J1940; J2250; J2405; J2785; J3010; J3490; J7030; Q9967

== ENCOUNTER → 2022-01-21 15:14 | Outpatient (BNVA) | payer MEDICAID, SELFPAY ==
[2021-12-10 08:32] VITALS: BMI 39.2
== END ==
PROVIDERS: PCP Registered Nurse; Visit Provider Nurse Practitioner Family
DX: I11.0 Hypertensive heart disease with heart failure (principal); I50.20 Unspecified systolic (congestive) heart failure; Z87.891 Personal history of nicotine dependence
CPT/HCPCS: 99214

== ENCOUNTER → 2022-02-03 10:48 | Outpatient (BNVA) | payer MEDICAID, SELFPAY ==
[2021-12-10 08:32] VITALS: BMI 39.2
== END ==
PROVIDERS: PCP Registered Nurse; Visit Provider Registered Nurse
DX: I50.20 Unspecified systolic (congestive) heart failure (principal); I82.409 Acute embolism and thrombosis of unspecified deep veins of unspecified lower extremity
CPT/HCPCS: 83880; 85025

== ENCOUNTER → 2022-02-06 11:01 | Outpatient (BNVA) | payer MEDICAID, SELFPAY ==
[2021-12-10 08:32] VITALS: BMI 39.2
== END ==
PROVIDERS: PCP Registered Nurse; Visit Provider Nurse Practitioner Family
DX: Z51.81 Encounter for therapeutic drug level monitoring (principal); I42.0 Dilated cardiomyopathy
CPT/HCPCS: 99213

== ENCOUNTER → 2022-02-11 08:11 | Outpatient (BNVA) | payer MEDICAID, SELFPAY ==
[2021-12-10 08:32] VITALS: BMI 39.2
== END ==
PROVIDERS: PCP Registered Nurse; Visit Provider Internal Medicine Rheumatology
DX: D86.9 Sarcoidosis, unspecified (principal); R76.8 Other specified abnormal immunological findings in serum; I42.0 Dilated cardiomyopathy; I50.9 Heart failure, unspecified; F15.21 Other stimulant dependence, in remission
CPT/HCPCS: 82164; 85651; 86140; 86160; 86162; 86235; 86255; 86376; 99205

== ENCOUNTER → 2022-02-27 09:51 | Outpatient (BNVA) | payer MEDICAID, SELFPAY ==
[2021-12-10 08:32] VITALS: BMI 39.2
== END ==
PROVIDERS: PCP Registered Nurse; Visit Provider Nurse Practitioner Psychiatric/Mental Health
DX: F33.1 Major depressive disorder, recurrent, moderate (principal); F41.1 Generalized anxiety disorder; F43.12 Post-traumatic stress disorder, chronic; F15.20 Other stimulant dependence, uncomplicated
CPT/HCPCS: 99214

== ENCOUNTER → 2022-03-12 13:04 | Outpatient (BNVA) | payer MEDICAID, SELFPAY ==
[2021-12-10 08:32] VITALS: BMI 39.2
== END ==
PROVIDERS: PCP Registered Nurse; Visit Provider Internal Medicine Cardiovascular Disease
DX: I42.0 Dilated cardiomyopathy (principal); I82.409 Acute embolism and thrombosis of unspecified deep veins of unspecified lower extremity; I13.0 Hypertensive heart and chronic kidney disease with heart failure and stage 1 through stage 4 chronic kidney disease, or unspecified chronic kidney disease; N18.9 Chronic kidney disease, unspecified; I50.9 Heart failure, unspecified; Z87.891 Personal history of nicotine dependence; F15.20 Other stimulant dependence, uncomplicated; D86.9 Sarcoidosis, unspecified
CPT/HCPCS: 99213

== ENCOUNTER 2022-04-27 12:34 | Outpatient (CLI) | payer MEDICAID, SELFPAY ==
[2021-12-10 08:32] VITALS: BMI 39.2
--- NOTE | 2022-04-27 13:00 | USCV_ITS ---
Tenzin Jones Age: 42 Gender: M : 1980 Exam Date: 04/27/2022 13:25 Ordering Phys: Quinten Chau MD ([email or web address]) Technologist: Masood Guevara [place]am [place] [facility] [place]ication: non ischemic cm BP: 109 / 66 HR: 80 Rhythm: Sinus Technical Quality: Adequate MEASUREMENTS (Male / Female) Normal Values 2D ECHO LV Diastolic Diameter PLAX 4.4 cm 4.2 - 5.9 / 3.9 - 5.3 cm LV Systolic Diameter PLAX 2.7 cm IVS Diastolic Thickness 0.7 cm 0.6 - 1.0 / 0.6 - 0.9 cm IVS Systolic Thickness 0.9 cm LVPW Diastolic Thickness 1.0 cm 0.6 - 1.0 / 0.6 - 0.9 cm LVPW Systolic Thickness 1.1 cm LVOT Diameter 2.0 cm LV Ejection Fraction 2D Teich 67.6 % LV Ejection Fraction MOD 2C 59.9 % LV Ejection Fraction 2C AL 59.8 % LA Diameter 3.3 cm LA Width 3.3 cm LA Height 4.6 cm RA Width 3.5 cm RA Height 4.2 cm Aorta at Sinotubular Diameter 2.8 cm IVC Diameter 1.6 cm M-MODE Aortic Annulus Diameter 3.1 cm LA Ao Ratio MM 1.1 MV E Point Septal Separation 0.4 cm DOPPLER AV Peak Velocity 108.0 cm/s LVOT Peak Velocity 95.0 cm/s AV Area Cont Eq vti 2.6 cm squared AV Area Cont Eq pk 2.8 cm squared MV Peak Velocity 83.0 cm/s MV Area PHT 3.6 cm squared Mitral E to A Ratio 1.0 MV E' Velocity 34.5 cm/s Mitral E to MV E' Ratio 8.8 Mitral E to LV E' Lateral Ratio 8.3 Mitral E to LV E' Septal Ratio 9.5 TR Peak Velocity 227.1 cm/s TR Peak Gradient 20.6 mmHg TR Mean Velocity 173.3 cm/s TR Mean Gradient 12.5 mmHg TR Velocity Time Integral 52.0 cm Right Atrial Pressure 3.0 mmHg Pulmonary Artery Systolic Pressu 23.6 mmHg RV Acceleration Time 0.1 s RV Ejection Time 0.2 s RV AcT/ET 0.5 FINDINGS Left Ventricle Normal left ventricular cavity size. Normal left ventricular wall thickness. Mildly decreased left ventricular systolic function. Left ventricular ejection fraction is estimated at 45- 50 %. Grade I/IV diastolic dysfunction (abnormal relaxation filling pattern), normal to mildly elevated filling pressures. Right Ventricle Normal right ventricular size and systolic function. Normal right ventricular systolic pressure. Right Atrium The right atrium is normal in size. Left Atrium The left atrium is normal in size. Mitral Valve Structurally normal mitral valve without significant stenosis or prolapse. There is no mitral regurgitation. Aortic Valve Structurally normal aortic valve without significant sclerosis or stenosis. There is no aortic regurgitation. Tricuspid Valve Structurally normal tricuspid valve without significant stenosis or regurgitation. Pulmonary artery systolic pressure is normal. Pulmonic Valve Pulmonic valve not well visualized. Pericardium Normal pericardium without effusion. Aorta Normal ascending aorta dimension. IVC Inferior vena cava not visualized. CONCLUSIONS Normal left ventricular cavity size. Normal left ventricular wall thickness. Mildly decreased left ventricular systolic function. Left ventricular ejection fraction is estimated at 45- 50 %. Grade I/IV diastolic dysfunction (abnormal relaxation filling pattern), normal to mildly elevated filling pressures. LV systolic function is greatly improved from previous evaluation of 15-20% Dr. Quinten Chau MD (Electronically Signed) Final Date: 28 April 2022 09:38 S
== END 2022-04-27 12:35 | disposition home or self-care (01) ==
LOC: RAD 12:35
PROVIDERS: PCP Registered Nurse; Visit Provider Internal Medicine Cardiovascular Disease
DX: I51.89 Other ill-defined heart diseases (principal)
CPT/HCPCS: 93306

== ENCOUNTER 2022-05-27 09:58 | Outpatient (CLI) | payer MEDICAID, SELFPAY ==
[2021-12-10 08:32] VITALS: BMI 39.2
--- NOTE | 2022-05-27 10:30 | CT_ITS ---
WS: [id number] CT CHEST TECHNIQUE: Noncontrast CT of the chest with coronal and sagittal reformatted images. CLINICAL INFORMATION: D86.9 - Sarcoidosis, unspecified COMPARISON: None. DLP: 787.[address] scans at [facility] use at least one of these dose optimization techniques: automated e xposure control; mA and/or kV adjustment per patient size (includes targeted exams where dose is matc hed to clinical indication); or iterative reconstruction. FINDINGS: No acute pulmonary infiltrates. No focal pneumonia or pleural fluid. No suspicious pulmonary parenchy mal opacities. A few calcified mediastinal and peribronchial lymph nodes. No lymphadenopathy. No axillary lymphadeno trang. Normal caliber thoracic aorta. Adrenal glands are normal. Hepatomegaly. Suggestion of splenomegaly partially visualized with low-att enuation changes. This could be further evaluated with contrast-enhanced CT abdomen pelvis. Mild circumferential thickening involving the distal esophagus and GE junction can be seen with esoph agitis. Hypertrophic changes lower thoracic and upper lumbar spine. CT/CT chest wo con [id number] IMPRESSION: 1. No suspicious pulmonary parenchymal opacities. Lungs are well aerated. 2. Hepatomegaly with splenomegaly. 3. Heterogeneous low-attenuation changes in the spleen are partially visualize d. This can be seen with sarcoidosis but indeterminant. Recommend further evalu ation with contrast-enhanced CT abdomen pelvis. 4. Mild circumferential thickening involving the distal esophagus and GE junct ion. This can be seen with esophagitis and could be further evaluated with endo scopy.
== END 2022-05-27 09:59 | disposition home or self-care (01) ==
PROVIDERS: PCP Registered Nurse; Visit Provider Internal Medicine Rheumatology
DX: D86.9 Sarcoidosis, unspecified (principal); R16.2 Hepatomegaly with splenomegaly, not elsewhere classified
CPT/HCPCS: 71250

== ENCOUNTER → 2022-06-24 11:07 | Outpatient (BNVA) | payer MEDICAID, SELFPAY ==
[2021-12-10 08:32] VITALS: BMI 39.2
== END ==
PROVIDERS: PCP Registered Nurse; Visit Provider Nurse Practitioner Family
DX: I42.0 Dilated cardiomyopathy (principal)
CPT/HCPCS: 99213

== ENCOUNTER 2022-08-18 11:48 | Outpatient (CLI) | payer MEDICAID, SELFPAY ==
[2022-08-04 11:46] VITALS: BMI 39.2
[2022-08-18] MEDS: iohexol 350 mg/mL 500 mL Btl (per mL) PO (12:26)
== END 2022-08-18 11:49 | disposition home or self-care (01) ==
LOC: RAD 11:49
PROVIDERS: PCP Registered Nurse; Visit Provider Registered Nurse
DX: Z53.9 Procedure and treatment not carried out, unspecified reason (principal); R16.1 Splenomegaly, not elsewhere classified
CPT/HCPCS: Q9967

== ENCOUNTER 2022-09-17 15:17 | Outpatient (CLI) | payer MEDICAID, SELFPAY ==
[2022-08-04 11:46] VITALS: BMI 39.2
--- NOTE | 2022-09-17 15:39 | ECG_ITS ---
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 Measurements Intervals [place] Rate: 76 P: 52 [place]: 170 QRS: -15 QRSD: 106 T: 52 QT: 368 QTc: 415 Interpretive Statements SINUS RHYTHM LOW QRS VOLTAGE IN PRECORDIAL LEADS [QRS DEFLECTION < 1.0 mV IN CHEST LEADS] POSSIBLE ANTERIOR MYOCARDIAL INFARCTION , PROBABLY OLD [30 ms Q WAVE IN V3/V4, OR R < 0.2 mV IN V4] INTERPRETATION BASED ON A DEFAULT AGE OF 40 YEARS Compared to ECG 01/08/2022 15:06:51 Low QRS voltage now present Myocardial infarct finding still present Electronically Signed On 09-17-2022 20:50:13 ASSOCIATE PROFESSOR OF ENGINEERING by Jg Morin M.D. [id number] f
== END 2022-09-17 15:18 | disposition home or self-care (01) ==
LOC: LAB 15:22
PROVIDERS: PCP Registered Nurse; Visit Provider Nurse Practitioner Psychiatric/Mental Health
DX: Z79.899 Other long term (current) drug therapy (principal)
CPT/HCPCS: 93005

== ENCOUNTER → 2022-11-02 10:21 | Outpatient (BNVA) | payer MEDICAID, SELFPAY ==
[2022-08-04 11:46] VITALS: BMI 39.2
== END ==
PROVIDERS: PCP Registered Nurse; Visit Provider Internal Medicine Cardiovascular Disease
DX: I42.8 Other cardiomyopathies (principal); G47.33 Obstructive sleep apnea (adult) (pediatric); R16.1 Splenomegaly, not elsewhere classified; Z87.891 Personal history of nicotine dependence; I82.622 Acute embolism and thrombosis of deep veins of left upper extremity
CPT/HCPCS: 99214

== ENCOUNTER → 2022-12-16 12:15 | Outpatient (BNVA) | payer OTHER, SELFPAY ==
[2022-12-14 08:19] VITALS: BMI 39.2
== END ==
PROVIDERS: PCP Registered Nurse; Visit Provider Nurse Practitioner Psychiatric/Mental Health
DX: F41.1 Generalized anxiety disorder (principal); F33.1 Major depressive disorder, recurrent, moderate; F43.12 Post-traumatic stress disorder, chronic
CPT/HCPCS: 80053; 80061; 83036

== ENCOUNTER → 2023-07-13 09:47 | Outpatient (BNVA) | payer MEDICAID, SELFPAY ==
[2022-12-30 11:49] VITALS: BMI 44.2
== END ==
PROVIDERS: PCP Registered Nurse; Visit Provider Registered Nurse
DX: I10 Essential (primary) hypertension (principal); F41.1 Generalized anxiety disorder; G43.109 Migraine with aura, not intractable, without status migrainosus
CPT/HCPCS: 80053; 85025

== ENCOUNTER → 2023-07-14 | Outpatient (BNVA) | payer MEDICAID, SELFPAY ==
[2022-12-30 11:49] VITALS: BMI 44.2
== END ==
PROVIDERS: PCP Registered Nurse; Visit Provider Registered Nurse
DX: I10 Essential (primary) hypertension (principal); F41.1 Generalized anxiety disorder; G43.109 Migraine with aura, not intractable, without status migrainosus; R73.09 Other abnormal glucose
CPT/HCPCS: 83036

== ENCOUNTER → 2023-10-26 10:09 | Outpatient (BNVA) | payer MEDICAID, SELFPAY ==
[2022-12-30 11:49] VITALS: BMI 44.2
== END ==
PROVIDERS: PCP Registered Nurse; Visit Provider Registered Nurse
DX: E11.9 Type 2 diabetes mellitus without complications (principal)
CPT/HCPCS: 80053; 83036

== ENCOUNTER → 2023-12-21 15:57 | Outpatient (BNVA) | payer OTHER, SELFPAY ==
[2022-12-30 11:49] VITALS: BMI 44.2
== END ==
PROVIDERS: PCP Registered Nurse; Visit Provider Nurse Practitioner Psychiatric/Mental Health
DX: F41.1 Generalized anxiety disorder (principal)
CPT/HCPCS: 80061

== ENCOUNTER → 2024-03-16 09:52 | Outpatient (BNVA) | payer OTHER, SELFPAY ==
[2023-12-31 14:59] VITALS: BP 134/88; BMI 42.0
== END ==
PROVIDERS: PCP Registered Nurse; Visit Provider Registered Nurse
DX: E11.9 Type 2 diabetes mellitus without complications (principal)
CPT/HCPCS: 80053; 82607; 83036

== ENCOUNTER → 2024-09-13 10:52 | Outpatient (BNVA) | payer MEDICAID, SELFPAY ==
[2023-12-31 14:59] VITALS: BP 134/88; BMI 42.0
== END ==
PROVIDERS: PCP Registered Nurse; Visit Provider Registered Nurse
DX: I10 Essential (primary) hypertension (principal); E11.9 Type 2 diabetes mellitus without complications
CPT/HCPCS: 80053; 80061; 83036; 84443; 85025

== ENCOUNTER → 2024-10-11 12:48 | Outpatient (BNVA) | payer MEDICAID, SELFPAY ==
[2023-12-31 14:59] VITALS: BP 134/88; BMI 42.0
== END ==
PROVIDERS: PCP Registered Nurse; Visit Provider Nurse Practitioner Family
DX: I11.0 Hypertensive heart disease with heart failure (principal); I50.20 Unspecified systolic (congestive) heart failure; I42.0 Dilated cardiomyopathy; E78.5 Hyperlipidemia, unspecified; F15.21 Other stimulant dependence, in remission; F17.200 Nicotine dependence, unspecified, uncomplicated
CPT/HCPCS: 99214

== ENCOUNTER → 2025-01-25 11:15 | Outpatient (BNVA) | payer MEDICAID, SELFPAY ==
[2023-12-31 14:59] VITALS: BP 134/88; BMI 42.0
== END ==
PROVIDERS: PCP Registered Nurse; Visit Provider Registered Nurse
DX: E11.9 Type 2 diabetes mellitus without complications (principal); I10 Essential (primary) hypertension
CPT/HCPCS: 80053; 83036

== ENCOUNTER → 2025-03-26 10:19 | Outpatient (BNVA) | payer MEDICAID, SELFPAY ==
[2023-12-31 14:59] VITALS: BP 134/88; BMI 42.0
== END ==
PROVIDERS: PCP Registered Nurse; Visit Provider Internal Medicine Cardiovascular Disease
DX: I11.0 Hypertensive heart disease with heart failure (principal); I50.20 Unspecified systolic (congestive) heart failure; I42.8 Other cardiomyopathies; E78.5 Hyperlipidemia, unspecified; Z79.01 Long term (current) use of anticoagulants; Z86.718 Personal history of other venous thrombosis and embolism; Z87.891 Personal history of nicotine dependence; R06.02 Shortness of breath; I42.9 Cardiomyopathy, unspecified
CPT/HCPCS: 99214

== ENCOUNTER → 2025-04-05 09:18 | Outpatient (BNVA) | payer MEDICAID, SELFPAY ==
[2023-12-31 14:59] VITALS: BP 134/88; BMI 42.0
== END ==
PROVIDERS: PCP Registered Nurse; Visit Provider Registered Nurse
DX: E11.9 Type 2 diabetes mellitus without complications (principal); R06.02 Shortness of breath
CPT/HCPCS: 80048; 83036; 83880

== ENCOUNTER 2025-04-24 07:43 | Outpatient (CLI) | payer MEDICAID, SELFPAY ==
[2023-12-31 14:59] VITALS: BP 134/88; BMI 42.0
--- NOTE | 2025-04-24 07:45 | USCV_ITS ---
Tenzin Jones Age: 45 Gender: M : 1980 Exam Date: 04/24/2025 08:02 Ordering Phys: Jg Morin MD ([email or web address]) Technologist: JOSETTE [place] [facility] [place]: Cardiomy[place] BP: 120 / 70 HR: Rhythm: Sinus Technical Quality: Adequate MEASUREMENTS (Male / Female) Normal Values 2D ECHO LV Diastolic Diameter PLAX 5.1 cm 4.2 - 5.9 / 3.9 - 5.3 cm IVS Diastolic Thickness 1.1 cm 0.6 - 1.0 / 0.6 - 0.9 cm IVS Systolic Thickness 1.9 cm LVPW Diastolic Thickness 1.3 cm 0.6 - 1.0 / 0.6 - 0.9 cm LVPW Systolic Thickness 1.8 cm LVOT Diameter 2.1 cm LV Ejection Fraction 2D Teich 54.8 % LV Ejection Fraction MOD 4C 56.9 % LV Ejection Fraction MOD 2C 49.0 % LV Ejection Fraction 2C AL 51.3 % LA Diameter 3.1 cm RA Systolic Volume 4C AL 53.2 ml RA Systolic Volume 4C MOD 51.9 ml LA Sys Volume AL 56.1 cm cubed LA Sys Volume Index AL 21.1 cm cubed/m squared Aorta at Sinotubular Diameter 2.7 cm IVC Diameter 2.0 cm M-MODE LA Ao Ratio MM 1.4 AV Cusp Separation MM 1.8 cm FINDINGS Left Ventricle Normal left ventricular size and systolic function, EF 55%( visual). No regional wall motion abnormalities. Right Ventricle Appears to be mildly dilated with possibly normal ejection fraction Right Atrium Appears to be mildly dilated Left Atrium Normal left atrial size. Mitral Valve No gross morphologic abnormalities noted Aortic Valve The leaflets could not be visualized well. Possibly no gross abnormalities Tricuspid Valve Tricuspid valve not well visualized. Pulmonic Valve Pulmonic valve not well visualized. Pericardium No pericardial effusion. Aorta Normal aortic annulus size. IVC Normal inferior vena cava. CONCLUSIONS Normal left ventricular size and systolic function, EF 55%( visual). No regional wall motion abnormalities. Appears to be mildly dilated with possibly normal ejection fraction. The right atrium appears to be mildly dilated. Could not be visualized well. No obvious intracardiac masses. No significant pericardial effusion Technically difficult study because of the poor ultrasonic window. Dr Jg Morin MD FACC (Electronically Signed) Final Date: 28 April 2025 10:13 S
== END 2025-04-24 07:44 | disposition home or self-care (01) ==
LOC: RAD 07:44
PROVIDERS: PCP Registered Nurse; Visit Provider Internal Medicine Cardiovascular Disease
DX: I42.9 Cardiomyopathy, unspecified (principal)
CPT/HCPCS: 93308

== ENCOUNTER → 2025-08-28 10:38 | Outpatient (BNVA) | payer MEDICAID, SELFPAY ==
[2023-12-31 14:59] VITALS: BP 134/88; BMI 42.0
== END ==
PROVIDERS: PCP Registered Nurse; Visit Provider Registered Nurse
DX: I10 Essential (primary) hypertension (principal); E11.9 Type 2 diabetes mellitus without complications
CPT/HCPCS: 80053; 80061; 83036; 85025